=== PATIENT | male | born 1975 | race Caucasian/White ===

== ENCOUNTER 2022-11-09 07:50 | Outpatient (OUT) | payer OTHER, SELFPAY ==
--- NOTE | 2022-11-09 | ECG_ITS ---
[facility] Test Date: 2022-11-09 Pat Name: Rehan Monet Department: Room: - Gender: Male Maintenance Director: : [id number] Requested By: [id number] Order Number: [id number] Reading MD: VALDO BEST Measurements Intervals [place] Rate: 69 P: 68 [place]: 180 QRS: 90 QRSD: 98 T: 38 QT: 414 QTc: 444 Interpretive Statements SINUS RHYTHM INCOMPLETE RIGHT BUNDLE BRANCH BLOCK [90+ ms QRS DURATION, TERMINAL R IN V1/V2, 40+ ms S IN I/aVL/V4/V5/V6] NONSPECIFIC T-WAVE ABNORMALITY No previous ECG available for comparison Electronically Signed On 11-10-2022 6:58:01 EDT by VALDO BEST
== END 2022-11-09 07:51 | disposition home or self-care (01) ==
LOC: CARD 07:52
PROVIDERS: PCP Family Medicine; Visit Provider Family Medicine
DX: R00.2 Palpitations (principal)
CPT/HCPCS: 93005

== ENCOUNTER 2022-11-17 07:39 | Outpatient (OUT) | payer OTHER, SELFPAY ==
[2022-11-17 08:28] LABS: Basophils Absolute Auto 0.1 10^3/uL (0.0-0.1); Basophils Percent Auto 0.8 % (0.2-2.0); Eosinophils Absolute Auto 0.1 10^3/uL (0.0-0.7); Hematocrit 42.3 % (42.0-54.0); Hemoglobin 14.4 g/dL (14.0-18.0); Immature Granulocytes Abs Auto 0.02 10^3/uL (0.00-0.03); Immature Granulocytes Pct Auto 0.3 % (0.0-0.5); Lymphocytes Absolute Auto 2.1 10^3/uL (1.2-3.8); Lymphocytes Percent Auto 34.8 % (20.5-60.0); Mean Corpuscular Hemoglobin 30.4 pg (25.9-34.0); Mean Corpuscular Volume 89.2 fL (80.0-94.0); Mean Platelet Volume 9.6 fL (9.5-13.5); Monocytes Absolute Auto 0.7 10^3/uL (0.3-0.8); Neutrophils Percent Auto 50.1 % (43.0-75.0); Platelet Count 298 10^3/uL (150-450); Red Blood Count 4.74 10^6/uL (4.70-6.10); Red Cell Distribution Width 12.5 % (11.0-15.0); White Blood Count 5.9 10^3/uL (4.0-11.0)
[2022-11-17 14:53] LABS: Alanine Aminotransferase 29 U/L (16-63); Albumin Globulin Ratio 1.1; Albumin Level 3.9 g/dL (3.4-5.0); Alkaline Phosphatase 56 U/L (46-116); Anion Gap 12.2; Aspartate Amino Transferase 17 U/L (15-37); BUN Creatinine Ratio 18.3; Bilirubin Total 0.5 mg/dL (0.2-1.0); Calcium 9.2 mg/dL (8.5-10.1); Carbon Dioxide 30.3 mmol/L (21.0-32.0); Chloride 103 mmol/L (98-107); Chol HDL Ratio 4.1; Cholesterol 287 mg/dL (<=200); Estimated GFR (African America >60 (>=60); Estimated GFR (Non-African Ame >60 (>=60); Globulin 3.6 g/dL; Glucose 96 mg/dL (74-106); HDL Cholesterol 70 mg/dL (40-60); Potassium 4.5 mmol/L (3.5-5.1); Sodium 141 mmol/L (136-145); Total Protein 7.5 g/dL (6.4-8.2); Triglycerides 127 mg/dL (<=150); VLDL CHOLESTEROL 25.4 mg/dL
== END 2022-11-17 07:40 | disposition home or self-care (01) ==
LOC: LAB 07:40
PROVIDERS: PCP Family Medicine; Visit Provider Family Medicine
DX: R00.2 Palpitations (principal)
CPT/HCPCS: 36415; 80053; 80061; 84443; 85025

== ENCOUNTER 2022-12-08 15:43 | Outpatient (OUT) | payer OTHER, SELFPAY ==
[2022-12-08 16:16] LABS: Erythrocyte Sedimentation Rate 6 mm/hr (<=15)
[2022-12-08 16:38] LABS: Uric Acid 7.6 mg/dL (3.5-7.2)
[2022-12-08 16:39] LABS: C Reactive Protein <0.2 mg/dL (<=1.0)
== END 2022-12-08 15:44 | disposition home or self-care (01) ==
PROVIDERS: PCP Family Medicine; Visit Provider Family Medicine
DX: M79.673 Pain in unspecified foot (principal)
CPT/HCPCS: 36415; 84550; 85652; 86140

== ENCOUNTER 2023-11-22 21:20 | Emergency (ER) | payer OTHER, SELFPAY ==
[2023-11-22 21:31] VITALS: BP 150/107; PULSE 76; TEMP 36.7; O2SAT 98; BMI 27.3
--- NOTE | 2023-11-22 21:43 | ED.GENADUL1 ---
HPI HPI - General Adult General Chief complaint: Abdominal Pain Stated complaint: Gerry Pain Time Seen by Provider: 11/22/23 21:31 Source: patient and family Mode of arrival: walk-in History of Present Illness HPI narrative: left groin pain. states pain on and off over the past year. Describes increased pain as flare up. No urinary symptoms or abdominal pain Related Data Home Medications ?Medication ?Instructions ?Recorded ?Confirmed allopurinol 100 mg tablet 100 mg PO DAILY 11/22/23 11/22/23 colchicine 0.6 mg tablet 0.6 mg PO DAILY 11/22/23 11/22/23 Allergies Allergy/AdvReac Type Severity Reaction Status Date / Time No Known Drug Allergies Allergy Verified 11/22/23 21:30 Opioid HPI Opioid Management Most Recent Opioid Data: No Data to Display Review of Systems ROS Status of ROS 10 or more systems reviewed and unremarkable except as noted in history and below Exam Constitutional Vital Signs, click to edit/add: Last Vital Signs Temp 98.1 F 11/22/23 21:31 Pulse 76 11/22/23 21:31 Resp 15 11/22/23 21:31 BP 150/107 H 11/22/23 21:31 Pulse Ox 98 11/22/23 21:31 O2 Del Method Room Air 11/22/23 21:31 Common normals: no apparent distress, average body habitus, oriented x3, no limitations, healthy appearing, alert and well nourished [facility] Common normals: normocephalic and head/scalp atraumatic Respiratory Common normals: normal respiratory effort, no retractions and no use of accessory muscles Cardio Common normals: regular rate, regular rhythm, S1 normal heart sound and S2 normal heart sound GI Common normals: Normal to inspection, nondistended, normoactive bowel sounds present, soft to palpation and non-tender Other: left inguinal hernia noticed with exam and when he coughs. spont. reduces Extremity Common normals: normal to inspection and full ROM Neuro Common normals: oriented x3, CN's II-XII intact bilaterally, moves all extremities and no focal motor deficits Psych Appearance: grossly normal Course Vital Signs Vital signs: Vital Signs Temperature 98.1 F 11/22/23 21:31 Pulse Rate 76 11/22/23 21:31 Respiratory Rate 15 11/22/23 21:31 Blood Pressure 150/107 H 11/22/23 21:31 Pulse Oximetry 98 11/22/23 21:31 Oxygen Delivery Method Room Air 11/22/23 21:31 Temperature 98.1 F 11/22/23 21:31 Pulse Rate 76 11/22/23 21:31 Respiratory Rate 15 11/22/23 21:31 Blood Pressure 150/107 H 11/22/23 21:31 Pulse Oximetry 98 11/22/23 21:31 Oxygen Delivery Method Room Air 11/22/23 21:31 Medical Decision Making MDM Narrative Medical decision making narrative: patient presents with left groin pain on and off over the past year. Exam findings of likely left inguinal hernia. Patient informed of the working diagnosis and discharged home to follow up with gen. surgery Discharge Plan Discharge Stand Alone Forms: Work/School Release, Portal Instructions Chief Complaint: Abdominal Pain Clinical Impression: Indirect left inguinal hernia Patient Disposition: Home, Self-Care Prescriptions / Home Meds: No Action allopurinol 100 mg tablet 100 mg PO DAILY colchicine 0.6 mg tablet 0.6 mg PO DAILY Print Language: Pashto Instructions: Inguinal Hernia (ED) Additional Instructions: follow up with General Surgeon Dr Chawla Referrals: ALON HEAD [Primary Care Provider] - 1 week
== END 2023-11-22 22:08 | disposition home or self-care (01) ==
PROVIDERS: Emergency Provider Internal Medicine; PCP Family Medicine
DX: K40.90 Unilateral inguinal hernia, without obstruction or gangrene, not specified as recurrent (principal)
CPT/HCPCS: 99283

== ENCOUNTER 2024-05-08 14:54 | Outpatient (OUT) | payer OTHER, SELFPAY ==
--- OUTSIDE RECORDS SUMMARY | 2024-05-08 15:20 | XMS_ITS | CCD ---
Author Organization [facility] CliniSyma Care Team Providers Care Director Case Name Role Phone ADILENE, DR CHI Attending Unavailable GIRVIN, DR CHI Consulting Unavailable GIRVIN, DR CHI Primary Care Unavailable GIRVIN, DR CHI Admitting Unavailable KlipperAlno Consulting Unavailable GIRVIN, DR CHI Primary Care Unavailable REINECK, DR NADIA Parada Attending Unavailabl e REINECK, DR NADIA Parada Consulting Unavailabl e REINECK, DR NADIA Parada Admitting Unavailabl e ZIEBER, DR ORNN Crooks Consulting Unavailable GIRVIN, DR CHI Consulting Unavailable GIRVIN, DR CHI Primary Care Unavailable GIRVIN, DR CHI Admitting Unavailable GIRVIN, DR CHI Attending Unavailable Glatz, Tiago Consulting Unavailable REQUEST, DR THACKER LISTED Admitting Unavaila ble GIRVIN, DR CHI Primary Care Unavailable REQUEST, DR THACKER LISTED Attending Unavaila ble REQUEST, DR THACKER LISTED Consulting Unavaila ble REQUEST, DR THACKER LISTED Admitting Unavaila ble GIRVIN, DR CHI Primary Care Unavailable REQUEST, DR THACKER LISTED Attending Unavaila ble REQUEST, DR THACKER LISTED Consulting Unavaila ble DO Alon Head Primary Care Provider [phone] MD Alon Bellamy Attending Provider [phone] Alon Head Unavailable Alon Bellamy Unavailable DO Alon Head Primary Care Provider DO Alon Head Attending Provider Alon Head Primary Care Unavailable Alon Bellamy Admitting Unavailable Alon Bellamy Attending Unavailable Alon Head Attending Unavailable Adilene, Alon Admitting Unavailable Adilene, Alon Primary Care Unavailable Kirby Aldrich DO Primary Care Provider VALDEMAR DUMONT Attending Unavailable Kirby Aldrich DO Primary Care Provider KIRBY ALDRICH Primary Care Unavailable LISETTE FRAZIER Attending Unavailable ESTEPHANIA KIRBY E Primary Care Unavailable LEONARD, SOHAM Attending Unavailable LEONARD, PARK-BHARATHI Referring Unavailable BALL, KIRBY E Primary Care Unavailable ESTEPHANIA, KIRBY E Primary Care Unavailable LISA MENDOZA Attending Unavailable LEONARD, PARKMaynorBHARATHI Admitting Unavailable LEONARD, SOHAM Attending Unavailable LEONARD, PARK-BHARATHI Referring Unavailable BALL, KIRBY E Primary Care Unavailable UYAKOLISETTE GRAY Attending Unavailable BALL, KIRBY E Primary Care Unavailable LEONARD, PARK-BHARATHI Referring Unavailable BALL, KIRBY E Primary Care Unavailable BALL, KIRBY E Primary Care Unavailable LEONARD, SOHAM Attending Unavailable BALL, KIRBY E Primary Care Unavailable Allergies Allergy Classification Reported Allergen(s) Allergy Type Date of Onset Reaction(s) Facility (8 sources) Allopurinol; Translations: [ALLOPURINOL] Drug Allergy 12-21-2023 [facility] Work Phone: Medications Current Medications Medication Drug Class(es) Dates Sig (Normalized) Sig (Original) acetaminophen 325 mg / HYDROcodone bitartrate 5 mg oral tablet (1 source) Opioid Agonist Start: 12-05-2023 End: 12-08-2023 take 1 tablet by mouth every six hours as needed for pain HYDROcodone-acetam inophen (NORCO) 5-325 mg per tablet Indications: Left inguinal hernia Take 1 tablet by mouth every 6 hours as needed for pain for up to 3 days. 12 tablet 12/05/2023 12/08/2023 Active allopurinol 100 mg oral tablet (12 sources) Xanthine Oxidase Inhibitor Start: 11-25-2023 End: 12-09-2023 take 2 tablets by mouth once daily allopurinol (ZYLOPRIM) 100 mg tablet Take 2 tablets by mouth once daily for 14 days. 28 tablet 11/25/2023 12/09/2023 Active Start: 11-25-2023 End: 01-24-2024 take 1 tablet by mouth once daily allopurinol (ZYLOPRIM) 300 mg tablet Take 1 tablet by mouth once daily. 60 tablet 11/25/2023 12/21/2023 Discontinued Start: 10-24-2023 End: 11-25-2023 take 1 tablet by mouth once daily allopurinol (ZYLOPRIM) 100 mg tablet Take 1 tablet by mouth once daily. 60 tablet 11/24/2023 11/25/2023 Discontinued azithromycin 250 mg oral tablet (7 sources) Macrolide Antimicrobial Start: 01-13-2022 Azithromycin 250 MG 2 tablets on day 1 Orally then take 1 tablet daily on days 2-5 for 5 days Dec, Active colchicine 0.6 mg oral capsule (16 sources) Start: 04-02-2024 take 1 tablet by mouth once daily Colchicine 0.6 mg tablet Active 0.6 MG PO Daily April 02, 2024 12:00am Start: 10-24-2023 End: 07-23-2024 take 1 capsule by mouth once daily colchicine 0.6 mg capsule Indications: Chronic gout of multiple sites, unspecified cause Take 1 capsule by mouth once daily. 90 capsule 04/24/2024 07/23/2024 Active enteric contrast (will be provided with radiology test) (1 source) Start: 12-29-2023 End: 12-30-2023 enteric contrast (will be provided with radiology test) For CT PELVIS WO IVCON order Administer, As Directed One Time Only, via Oral, Rectal, both Oral and Rectal, Enteric Tube, Stoma or Indwelling Catheter, Enteric Contrast as designated per enteric contrast guidelines 1 Each 12/29/2023 12/30/2023 Active febuxostat 40 mg oral tablet (9 sources) Xanthine Oxidase Inhibitor Start: 12-21-2023 End: 06-23-2024 take 1 tablet by mouth once daily febuxostat (ULORIC) 40 mg tab Take 1 tablet by mouth once daily. 30 tablet 1 04/24/2024 06/23/2024 Active methylPREDNISolone 4 mg oral tablet (9 sources) Corticosteroid Start: 12-08-2022 methylPREDNISolone 4 MG as directed Orally with food for 6 days Nov, Active Start: 09-25-2019 methylPREDNISo lone 4 MG as directed Orally with food for 6 days Aug, Active oseltamivir 75 mg oral capsule (5 sources) Neuraminidase Inhibitor Start: 03-17-2022 take 1 capsule by mouth every twenty-four hours Tamiflu 75 MG 1 capsule Orally qd for 10 days Feb, Active terbinafine 250 mg oral tablet (2 sources) Allylamine Antifungal Start: 04-02-2024 take 1 tablet by mouth once daily Terbinafine Hcl 250 mg tablet Active 250 MG PO Daily April 02, 2024 12:00am Completed/Discontinued Medications Medication Drug Class(es) Dates Sig (Normalized) Sig (Original) aspirin 81 mg delayed release oral tablet (4 sources) Platelet Aggregation Inhibitor, Nonsteroidal Anti-inflammatory Drug Start: 01-19-2019 End: 04-02-2024 take 1 tablet by mouth once daily Aspirin 81 mg Tablet,Delayed Release (Dr/Ec) Discontinued 81 MG PO Daily January 18, 2019 11:00pm April 02, 2024 2:12pm benzonatate 100 mg oral capsule (3 sources) Non-narcotic Antitussive Start: 03-23-2021 take 1 capsule by mouth three times daily as needed Tessalon Perles 100 MG 1 capsule as needed Orally Three times a day for 10 day(s) Feb, Not-Taking cetirizine hydrochloride 10 mg oral tablet (3 sources) Histamine-1 Receptor Antagonist Start: 08-28-2019 take 1 tablet by mouth once daily ZyrTEC Allergy 10 MG 1 tablet Orally Once a day Aug, Not-Taking predniSONE 5 mg oral tablet (7 sources) Start: 12-21-2023 End: 01-02-2024 take 4 tablets by mouth once daily, then take 3 tablets by mouth once daily, then take 2 tablets by mouth once daily, then take 1 tablet by mouth once daily predniSONE (DELTASONE) 5 mg tablet Take 4 tablets by mouth once daily for 3 days, THEN 3 tablets once daily for 3 days, THEN 2 tablets once daily for 3 days, THEN 1 tablet once daily for 3 days. 30 tablet 12/21/2023 01/02/2024 Start: 11-24-2023 End: 12-06-2023 take 4 tablets by mouth once daily, then take 3 tablets by mouth once daily, then take 2 tablets by mouth once daily, then take 1 tablet by mouth once daily predniSONE (DELTASONE) 5 mg tablet Take 4 tablets by mouth once daily for 3 days, THEN 3 tablets once daily for 3 days, THEN 2 tablets once daily for 3 days, THEN 1 tablet once daily for 3 days. 30 tablet 11/24/2023 12/06/2023 Active Start: 10-14-2023 End: 04-02-2024 take 1 tablet by mouth once daily at mealtime Prednisone 20 mg tablet Discontinued 0 PO Daily 18 October 13, 2023 11:00pm April 02, 2024 2:32pm 20 MG 3 a day x3 days, then take 2 a day x3 days and then 1 a day x3 days with food or milk. orally daily; triamcinolone acetonide 40 mg/ml injectable suspension (20 sources) Corticosteroid Start: 08-30-2022 Kenalog-40 Aug, 60 cc Start: 10-13-2015 KENALOG - 10 m g Sep, 1.5 cc Start: 08-05-2013 KENALOG - 10 m g July, 40 mg Problems Active Problems Problem Classification Problem Date Documented Da te Episodic/Chronic Abdominal hernia (2 sources) Left inguinal hernia ; Translations: [Unilateral inguinal hernia, without obstruction or gangrene, not specified as recurrent] Onset: 12-05-2023 11-23-2023 Episodic Abdominal pain (11 sources) Lower abdominal pain, unspecified; Translations: [Left inguinal pain] Onset: 04-06-2021 Episodic Comment on above: left sided pain Cardiac dysrhythmias (2 sources) Palpitations Episodic Coronary atherosclerosis and other heart disease (17 sources) Angina pectoris; Translations: [Angina pectoris, unspecified] Chronic Disorders of lipid metabolism (8 sources) Hyperlipidemia; Translations: [Hyperlipidemia, unspecified] Chronic Gout and other crystal arthropathies (20 sources) Gout; Translations: [Gout, unspecified] Onset: 10-21-2023 Chronic Lymphadenitis (1 source) Localized enlarged lymph nodes; Translations: [Localized enlarged lymph nodes] Onset: 04-01-2022 Episodic Mycoses (4 sources) Onychomycosis; Translations: [Tinea unguium] 04-02-2024 Episodic Nonspecific chest pain (4 sources) Chest pain at rest; Translations: [Chest pain, unspecified] 01-18-2019 Episodic Comment on above: Problem List clean-u p per request of Phys. EHR Cmte Other aftercare (1 source) Surgical follow-up; Translations: [Encounter for follow-up examination after completed treatment for conditions other than malignant neoplasm] 12-29-2023 Episodic Other connective tissue disease (1 source) Pain in left foot Episodic Other connective tissue disease (1 source) Pain in unspecified foot Episodic Other connective tissue disease (1 source) Pain in left toe(s); Translations: [Pain of toe of left foot] Onset: 10-21-2023 Episodic Other ear and sense organ disorders (4 sources) Otalgia, left ear; Translations: [OTALGIA LEFT EAR] Onset: 12-04-2020 Episodic Other lower respiratory disease (4 sources) Dyspnea; Translations: [Shortness of breath] 01-18-2019 Episodic Comment on above: Problem List clean-u p per request of Phys. EHR Cmte Other nutritional; endocrine; and metabolic disorders (1 source) Abnormal weight loss Episodic Other upper respiratory disease (20 sources) Allergic rhinitis; Translations: [Allergic rhinitis, unspecified] Chronic Other upper respiratory disease (1 source) Other allergic rhinitis Onset: 08-18-2021 Resolved: 08-18-2021 Chronic Other upper respiratory disease (1 source) Allergic rhinitis, unspecified Chronic Residual codes; unclassified (15 sources) Obstructive sleep apnea syndrome; Translations: [Obstructive sleep apnea (adult) (pediatric)] Chronic Residual codes; unclassified (1 source) Obstructive sleep apnea (adult) (pediatric) Onset: 08-18-2021 Resolved: 08-18-2021 Chronic Residual codes; unclassified (3 sources) Sleep apnea, unspecified; Translations: [Unspecified sleep apnea] Chronic Residual codes; unclassified (16 sources) Sleep apnea; Translations: [Sleep apnea, unspecified] Onset: 10-21-2023 10-21-2023 Chronic Residual codes; unclassified (1 source) Pain; Translations: [Pain, unspecified] 04-17-2020 Episodic Residual codes; unclassified (1 source) Postoperative state; Translations: [Other specified postprocedural states] 12-22-2023 Episodic Spondylosis; intervertebral disc disorders; other back problems (17 sources) Spondylosis without myelopathy; Translations: [Spondylosis without myelopathy or radiculopathy, site unspecified] Chronic Syncope (4 sources) Syncope and collapse; Translations: [Syncope and collapse] 01-19-2019 Episodic Comment on above: Problem List clean-u p per request of Phys. EHR Cmte Unclassified (1 source) G47.33 - Obstructive sleep apnea (adult) (pediatric); Translations: [G47.33 - Obstructive sleep apnea (adult) (pediatric)] Onset: 08-18-2021 Past or Other Problems Problem Classification Problem Date Documented Date Episodic/Chronic E Codes: Adverse effects of medical drugs (7 sources) Allopurinol adverse reaction; Translations: [Adverse effect of drugs affecting uric acid metabolism, initial encounter] Onset: 12-21-2023 12-21-2023 Episodic Headache; including migraine (4 sources) Other headache syndrome; Translations: [OTHER HEADACHE SYNDROME] Onset: 12-23-2020 Episodic Other connective tissue disease (13 sources) Pain of toe of left foot; Translations: [Pain in left toe(s)] Onset: 10-21-2023 10-21-2023 Episodic Other lower respiratory disease (1 source) Snoring Onset: 08-18-2021 Resolved: 08-18-2021 Episodic Other non-traumatic joint disorders (14 sources) Acromioclavicular joint pain; Translations: [Pain in unspecified shoulder] Onset: 05-12-2010 05-12-2010 Episodic Other non-traumatic joint disorders (14 sources) Instability of left shoulder joint; Translations: [Other instability, left shoulder] Onset: 04-17-2020 04-17-2020 Episodic Other nutritional; endocrine; and metabolic disorders (1 source) Body mass index (BMI) 26.0-26.9, adult Onset: 08-18-2021 Resolved: 08-18-2021 Episodic Results Test Name Value Interpretation Reference Range Facility [facility] 12-29-2023 [facility] Office Visit (GENSAV ) REHAN MONET ([id number]) 1975 M Date Time Provider Department 12/29/23 2:20 PM SOHAM LEONARD GENSAV During your visit today, we recorded the following information about you: Soham Leonard DO 12/29/2023 2:57 PM Signed SERVICE DATE: 12/29/2023 SERVICE TIME: 2:30 PM SERVICE: General Surgery SUBJECTIVES: Here for repeat exam. No bulge sensation. Still with achy tenderness in the left groin as before the surgical repair. At times he is doing well without pain. But past Tuesday after a short car drive, he developed sharp pain in the left groin and lasts 2-3 days. Today he is doing well, min discomfort. OBJECTIVES: There were no vitals taken for this visit. , There is no height or weight on file to calculate BMI. GENERAL: Healthy, alert, no distress, cooperative GENITALIA MALE: well healed scars from surg; no palpable recurrent inguinal hernia in the left. The sensitive examination was discussed with the Patient or Patient's Authorized Duct Layer. As applicable, any other physician, advance practice provider, medical student, or other health professional student that will be observing or involved in the sensitive examination for educational or training purposes was discussed with the Patient or Authorized Duct Layer. The Patient or Authorized Duct Layer has agreed to proceed with the sensitive examination. (Sensitive examination includes inspection and/or palpation of the breasts, pelvis, prostate and anorectal regions) Assessment ASSESSMENT: S/p lap LIH repair with mesh POD#24 Persistent pain - postop vs neuralgia; history of left orchiectomy ? Scarring No signs of recurrence or persistence of LIH PLAN: Trial of topical Voltaren cream CT pelvis if continues to have recurrent symptoms in [address] is neg, then probably neuralgia - nerve block vs open exploration and neurectomy may be beneficial. SIGNATURE: Park Leonard DO PATIENT NAME: Rehan Monet DATE: December 29, 2023 TIME: 2:51 PM PAGER: Referring Provider: SOHAM LEONARD [[id number]] Allergies As of Date: 12/29/2023 Noted Allergy Reaction ALLOPURINOL 12/21/2023 4 - Hives Date Reviewed: 12/29/2023 Reviewed by: Chelita Frost OCCA - Fully Assessed Reason for Visit: Follow Up [171] Primary Visit Diagnosis:Left groin pain [R10.32] Other Visit Diagnosis:Postop check [Z09] Order(s):CT PELVIS WO IVCON [[id number]] Order #: [id number] FUTURE enteric contrast (will be provided with radiology test)For CT PELVIS WO IVCON order Administer, As Directed One Time Only, via Oral, Rectal, both Oral and Rectal, Enteric Tube, Stoma or Indwelling Catheter, Enteric Contrast as designated per enteric contrast guidelinesDisp: 1 EachRfl: 0 Prescriptions as of 12/29/2023 - enteric contrast (will be provided with radiology test) For CT PELVIS WO IVCON order Administer, As Directed One Time Only, via Oral, Rectal, both Oral and Rectal, Enteric Tube, Stoma or Indwelling Catheter, Enteric Contrast as designated per enteric contrast guidelines - febuxostat (ULORIC) 40 mg tab Take 1 tablet by mouth once daily. - predniSONE (DELTASONE) 5 mg tablet Take 4 tablets by mouth once daily for 3 days, THEN 3 tablets once daily for 3 days, THEN 2 tablets once daily for 3 days, THEN 1 tablet once daily for 3 days. - colchicine 0.6 mg capsule Take 1 capsule by mouth once daily. Problem List As Of Date 12/29/2023 Noted Resolved AC joint pain [M25.519] 05/12/2010 Instability of left shoulder joint [M25.312] 04/17/2020 Chronic gout involving toe without tophus [M1A.*10/21/2023 Sleep apnea [G47.30] 10/21/2023 Gout [M10.9] 10/21/2023 Pain of toe of left foot [M79.675] 10/21/2023 Allopurinol adverse reaction, initial encounter*12/21/2023 Prescriptions ordered this encounter Disp Refills Start End ENTERIC CONTRAST (RADIOLOGY PROCEDUR* 1 Ea* 0 12/29/2023 12/30/2023 Class: In Office Sig: For CT PELVIS WO IVCON order Administer, As Directed One Time Only, via Oral, Rectal, both Oral and Rectal, Enteric Tube, Stoma or Indwelling Catheter, Enteric Contrast as designated per enteric contrast guidelines Disposition: Return if symptoms worsen or fail to improve. Follow-up and Disposition History for Encounter Date Provider Department Center 12/29/2023 [id number] LEONARD Encounter Status:Closed by PARK LEONARD on 12/29/23 [facility] CNOVon 12-22-2023 JARED Office Visit (BRENNAN ) REHAN MONET ([id number]) 1975 M Date Time Provider Department 12/22/23 8:00 AM LISA MENDOZA During your visit today, we recorded the following information about you: Lisa Mendoza PA-C 12/22/2023 8:17 AM Signed SERVICE DATE: 12/22/2023 SERVICE TIME: 8:09 AM SERVICE: General Surgery SUBJECTIVES: Patient here for f/u after laparoscopic LIH repair. Patient has no complaints. OBJECTIVES: There were no vitals taken for this visit. , There is no height or weight on file to calculate BMI. GENERAL: Healthy, alert, no distress, cooperative, Smiling SKIN: Skin color, texture, turgor normal. No rashes or lesions. HEAD/SINUSES: No significant findings ABDOMEN: Abdomen soft, non-tender, No recurrence LIH upon standing and coughing. WOUND: Clean, dry and intact The sensitive examination was discussed with the Patient or Patient's Authorized Duct Layer. As applicable, any other physician, advance practice provider, medical student, or other health professional student that will be observing or involved in the sensitive examination for educational or training purposes was discussed with the Patient or Authorized Duct Layer. The Patient or Authorized Duct Layer has agreed to proceed with the sensitive examination. (Sensitive examination includes inspection and/or palpation of the breasts, pelvis, prostate and anorectal regions) Kathleen Buchanan LPN, stoneworker Assessment ASSESSMENT: POD 17 s/p laparoscopic LIH repair PLAN: Discussed lifting restrictions No submerging until 4 post op RTO prn SIGNATURE: Lisa Mendoza PA-C PATIENT NAME: Rehan Monet DATE: December 22, 2023 TIME: 8:09 AM PAGER: Allergies As of Date: 12/22/2023 Noted Allergy Reaction ALLOPURINOL 12/21/2023 4 - Hives Date Reviewed: 12/22/2023 Reviewed by: Kathleen Moss LPN - Fully Assessed Reason for Visit: Post Op Follow Up [3947] Cmt: POD 17 left inguinal hernia Primary Visit Diagnosis:Post-operat katherine state [Z98.890] Prescriptions as of 12/22/2023 - febuxostat (ULORIC) 40 mg tab Take 1 tablet by mouth once daily. - predniSONE (DELTASONE) 5 mg tablet Take 4 tablets by mouth once daily for 3 days, THEN 3 tablets once daily for 3 days, THEN 2 tablets once daily for 3 days, THEN 1 tablet once daily for 3 days. - colchicine 0.6 mg capsule Take 1 capsule by mouth once daily. 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 Messenger) REHAN MONET ([id number]) 1975 M Date Time Provider Department 12/07/23 ARETHA DONATO During your visit today, we recorded the following information about you: Aretha Donato RN 12/07/2023 8:53 AM Signed Called patient and received VM as identified by no otr owner operator. Informed if any questions or concerns to please call the [facility] If no questions or concerns then we will see at scheduled post-op appt. Informed if any questions or concerns arise before then to please call. Office number left to contact. Allergies As of Date: 12/07/2023 (No Known Allergies) Date Reviewed: 12/05/2023 Reviewed by: Giuseppe King RN - Fully Assessed Prescriptions as of 12/07/2023 - HYDROcodone-acetamino phen (NORCO) 5-325 mg per tablet Take 1 tablet by mouth every 6 hours as needed for pain for up to 3 days. - allopurinol (ZYLOPRIM) 100 mg tablet Take 2 tablets by mouth once daily for 14 days. - allopurinol (ZYLOPRIM) 300 mg tablet Take 1 tablet by mouth once daily. - colchicine 0.6 mg capsule Take 1 capsule by mouth once daily. 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.*10/21/2023 Sleep apnea [G47.30] 10/21/2023 Gout [M10.9] 10/21/2023 Pain of toe of left foot [M79.675] 10/21/2023 Encounter Status:Closed by ARETHA DONATO on 12/07/23 [facility] ANES POSTPROC EVALon 024 ANES POSTPROC EVAL HNO ID: [id number] Author: JOE MCCORMACK MD Service: Anesthesiology Author Type: Anesthesiologist Type: Anesthesia Postprocedure Evaluation Filed: 12/05/2023 09:28 Note Text: POST ANESTHESIA EVALUATION NOTE : 1975 Procedure Summary Date: 12/05/23 Room / Location: [address] Anesthesia Start: 730 Anesthesia Stop: 850 Procedure: LAPAROSCOPIC HERNIORRHAPHY, INGUINAL INITIAL (Left: Groin) Diagnosis: Left inguinal hernia (Left inguinal hernia [K40.90]) Surgeons: Soham Leonard DO Responsible Provider: Joe Mccormack MD Anesthesia Type: general ASA Status: 3 Anesthesia Type: general Airway Type: ETT Last Vitals Vitals Value Taken Time BP 148/67 12/05/23 0920 Temp 36.4 ?C (97.6 ?F) 12/05/23 0851 HR SpO2 82 12/05/23 0851 Resp 16 12/05/23 0915 SpO2 99 % 12/05/23 0927 Vitals shown include unfiled device data. Post Anesthesia Patient Status Patient Evaluation: PACU. PACU/ICU Patient Condition: stable. Anticipated Disposition: phase 2 then home. Neurological Status: aware and responsive. Pulmonary Status: breathing comfortably on room air Airway Control: returned to baseline unsupported. Cardiovascular Status: stable. Pain Management: clinically adequate - multimodal analgesia pain management approach Postoperative Hydration: acceptable. Intraoperative Events: no significant anesthesia events Post Operative Nausea/Vomiting Status: no significant post operative nausea or vomiting Recommendation: continue current plan of care. Anesthesia Observations No Documentation SIGNATURE: Joe Mccormack MD PATIENT NAME: Rehan Monet DATE: December 05, 2023 TIME: 9:28 AM CSN: [id number] Normal [facility] ANES PRE-OPon 12-05-2023 ANES PRE-OP HNO ID: [id number] Author: JOE MCCORMACK MD Service: Anesthesiology Author Type: Anesthesiologist Type: Anesthesia Preprocedure Evaluation Filed: 12/05/2023 07:22 Note Text: ANESTHESIOLOGY DAY OF SURGERY NOTE : 1975 Procedure Information Date/Time: 12/05/23729 Procedure: LAPAROSCOPIC HERNIORRHAPHY, INGUINAL INITIAL (Left: Groin) Location: [place] [address] / [facility] Surgeons: Soham Leonard DO Estimated body mass index is 27.66 kg/m? as calculated from the following: Height as of 11/25/23: 177.8 cm (5' 10 ). Weight as of 11/25/23: 87.5 kg (192 lb 12.7 oz). Most recent hematocrit and potassium results: Hematocrit 42.2 11/23/2023 Potassium 4.3 11/23/2023 IVETH not on CPAP Relevant Problems ANESTHESIA (+) Sleep apnea PULMONARY (+) Sleep apnea I - PHYSICAL EVALUATION AIRWAY Patient intubated: No. Tracheostomy tube not present Mallampati: II. TM distance: >3 FB. Neck ROM: full ROM without neurological symptoms. Mouth opening: adequate. Short neck: no. Thick neck: no DENTAL Dental findings: teeth intact. Additional exam findings: no II - ANESTHESIA PLAN ASA Score: 3 Anesthetic Plan: general Airway type: LMA The patient is not a current smoker. NPO Status: adequate Beta Jim Monitoring Plan Monitoring plan: standard ASA. Post Procedure Analgesic Plan Postoperative analgesic plan: multimodal analgesia and parenteral or oral opioids. Informed Consent Anesthetic risks, benefits, alternatives, personnel and consent discussed: yes. Patient / Responsible Libertarian agrees to proceed: yes Patient / Surrogate agrees to blood products: Yes Vitals Value Taken Time BP 149/94 12/05/23711 Pulse 63 12/05/23711 Resp 18 12/05/23711 Temp 36.6 ?C (97.8 ?F) 12/05/23711 SpO2 98 % 12/05/23711 Facility-Administered Medications as of 12/05/2023 Medication Dose Route Frequency lidocaine (PF) 10 mg/mL (1 %) 1-2 mg injection (XYLOCAINE) 0.1-0.2 mL INTRADERMAL PRN lactated ringers iv infusion 5-30 mL/hr INTRAVENOUS CONTINUOUS NaCl 0.9% iv flush bag 20 mL INTRAVENOUS PRN ceFAZolin 2 g in dextrose (iso-osmotic) 50 mL (ANCEF,KEFZOL) 2 g INTRAVENOUS Pre-Op Once Outpatient Medications as of 12/05/2023 Medication Sig colchicine 0.6 mg capsule Take 1 capsule by mouth once daily. allopurinol (ZYLOPRIM) 100 mg tablet Take 2 tablets by mouth once daily for 14 days. allopurinol (ZYLOPRIM) 300 mg tablet Take 1 tablet by mouth once daily. I have interviewed and examined the patient. I have reviewed the medical record and/or the pre-anesthesia evaluation, pertinent labs, and test results. This contains updated information obtained within 48 hours of Surgery/Procedure. SIGNATURE: Joe Mccormack MD PATIENT NAME: Rehan Monet DATE: December 05, 2023 TIME: 7:22 AM CSN: [id number] Normal [facility] BRIEF OP NOTon 12-05-2023 BRIEF OP NOT HNO ID: [id number] Author: SOHAM LEONARD DO Service: General Surgery Author Type: Physician Type: Brief Op Note Filed: 12/05/2023 08:34 Note Text: BRIEF OPERATIVE / PROCEDURE NOTE LOG ID: [id number] SURGERY/PROCEDURE DATE: 12/05/2023 INCISION/PROCEDURE START TIME: 0751 INCISION CLOSE/PROCEDURE END TIME: SURGEON(S)/PROCEDURAL IST(S) AND ENRICHMENT TEACHER(S): Surgeons and Role: * Soham Leonard DO - Primary Physician Shaft Mechanic: Lisa Mendoza PA-C SURGERY/PROCEDURE(S): Lap LIH repair with mesh ANESTHESIA: General FINDINGS: left inguinal hernia containing fat ESTIMATED BLOOD LOSS: minimal SPECIMENS: None COMPLICATIONS: None CLOSURE TECHNIQUE: Primary PRE-OP/PRE-PROCEDURE DIAGNOSIS: Left reducible inguinal hernia POST-OP/POST-PROCEDUR E DIAGNOSIS: Same as Preop Patient was accompanied to the next level of care by a licensed practitioner from the surgical team pending completion of this brief op note (or operative note) SIGNATURE: Park Leonard DO PATIENT NAME: Rehan Monet DATE: December 05, 2023 TIME: 8:34 AM Normal [facility] OPERATIVE NOon 12-05-2023 OPERATIVE NO HNO ID: [id number] Author: SOHAM LEONARD DO Service: General Surgery Author Type: Physician Type: Operative Report Filed: 12/05/2023 08:39 Note Text: [address], [facility] Phone: [phone] OPERATIVE REPORT NAME: Rehan Monet [facility] #: [id number] DATE: December 05, 2023 AGE: [age] year old SURGEON 1: Soham Leonard D.O. ENRICHMENT TEACHER 1: PARIS Cooper No qualified resident was available to perform the service. OPERATION: Laparoscopic Left inguinal hernia repair with mesh. ANESTHESIA: General anesthesia. PREOPERATIVE DIAGNOSIS: Left reducible inguinal hernia. POSTOPERATIVE DIAGNOSIS: Left reducible indirect inguinal hernia. OPERATIVE INDICATIONS: The patient is a 48 year oldmro-rvyz-rji male with history of left inguinal bulge, worse with movement, especially lifting heavy objects. Physical exam shows the patient has a reducible left inguinal hernia. Discussion was made with the patient regarding laparoscopic left inguinal hernia repair with mesh, possible open. Informed consent was obtained from the patient. The patient understood risks, benefits, and alternatives of the procedure, and agreed to the procedure described above. OPERATIVE FINDINGS: left inguinal hernia containing fat OPERATIVE PROCEDURE: The patient was brought to the operating room and placed in supine position. General anesthesia was provided by Anesthesia team. Savage catheter was inserted. The abdominal and bilateral groin area were prepped and draped in usual sterile fashion. A small right periumbilical incision was made. Further dissection was taken down through the anterior abdominal fascia. Fascia was opened and the retrorectal space was entered. In this space, a balloon dissector was inserted and the pneumo was created in the retrorectus space. Under direct visualization, two additional 5-mm ports were placed. They were placed in the lower midline abdomen. Preperitoneal space was then examined. The left inferior epigastric vessel was Identified. A small size inguinal hernia was found lateral to the inferior epigastric. This was consistent with indirect hernia. The hernia sac and cord lipoma was reduced with grasper and the spermatic cord was identified and preserved without any injury. We elected to repair the left inguinal hernia with ClubLocalile laparoscopic inguinal hernia mesh 13 x 9 cm size. It was inserted and fixated to the Vish's ligament on its medial edge with AbsorbaTack. It was also fixated to the left-sided abdominal wall using the Tacker. The hernia sac was pulled back and kept in place behind the hernia mesh. The repair was satisfactory, covering the potential space of the direct and indirect hernia space. Hemostasis was checked at this time, no signs of active bleeding. Pneumoperitoneum was evacuated. All the trocars were removed. Right periumbilical incision fascial layer was closed with #0 Vicryl suture. All the skin incisions were closed with 3-0 vicryl and 4-0 Monocryl. Sterile dressing was applied. The patient tolerated the procedure well and was transferred to recovery for postprocedural care. PA's task in this procedure: opening and closing of incision, retraction and exposure of the wound and camera operation. INCISION/PROCEDURE START TIME: 0751 INCISION CLOSE/PROCEDURE END TIME: 0835 ESTIMATED BLOOD LOSS: minimal DRAINS: none SPECIMENS: None. CONDITION: Stable. COMPLICATIONS: None apparent. Park Leonard DO December 05, 2023 8:37 AM Normal [facility] HISTORY PHYSICALon HISTORY PHYSICAL HNO ID: [id number] Author: XIMENA GONZALES APRN.EMPERATRIZ Service: ? Author Type: Nurse Practitioner Type: H&P Filed: 11/25/2023 08:00 Note Text: HISTORY AND PHYSICAL EXAMINATION SERVICE DATE: 11/25/2023 SERVICE TIME: 7:45 AM PRIMARY CARE PHYSICIAN: Kirby Aldrich DO REASON FOR VISIT: Rehan Monet is a 48 year old male who is scheduled for Left - LAPAROSCOPIC HERNIORRHAPHY, INGUINAL INITIAL at the request of Dr. Soham Leonard for consultation. My final recommendation will be communicated back to the requesting physician by way of shared medical record or letter. Assessment Patient has the following medical conditions which may affect nahed-operative course: Sleep apnea Assessment: Does not use CPAP Nichole Activity Status Index: METS: Do moderate work around the house, such as vacuuming, sweeping floors, or carrying in groceries (3.50 METs) Climb a flight of stairs or walk up a hill (5.50 METs) DASI Score: 9 Patient denies any chest pain or undue shortness of breath with the above physical activity. STOP-Bang Score: STOP-Bang Score: 0 [id number] Score: Age: <65 Sex: male CHF history: No Hypertension history: No Stroke/TIA/thromboemb olism history: No Vascular disease history: No Diabetes history: No [id number] Score: 0 ANESTHESIA FINDINGS: Intubation History: No history of difficult intubation Significant Anesthesia Considerations: none Airway History: No history of difficult airway I - PHYSICAL EVALUATION AIRWAY Patient intubated: No. Tracheostomy tube not present Mallampati: I. TM distance: >3 FB. Neck ROM: full ROM without neurological symptoms. Mouth opening: adequate. Short neck: no. Thick neck: no Lip Bite Test: II Microretrognathia/Deshaun ronagthia/Recessed Chin: No DENTAL Dental findings: teeth intact. II - ANESTHESIA PLAN Beta Jim Monitoring Plan Post Procedure Analgesic Plan Prepared for surgery: This patient is optimally prepared for surgery. CONSULTS: Patient does not require consults for optimization at this time. The Following Tests/Procedures Have Been Initiated: Labs not indicated per [facility] protocol, EKG not indicated per [facility] protocol Planned Anesthetic: Per anesthesia choice Subjective CHIEF COMPLAINT: Left inguinal hernia HPI: 48 year old year old presents to [facility] for evaluation. Patient has had left groin pain > 1 year. Found to have hernia. Has elected for surgical intervention. PAST MEDICAL HISTORY No date: Gout 11/23/2023: NEGATIVE HISTORY OF Comment: NO pn,tb,dm,ca, heart dis No date: Sleep apnea PAST SURGICAL HISTORY No date: FINGER SURGERY HX; Right Comment: Right Thumb No date: SHOULDER SURGERY HX; Left No date: TESTICLE SURGERY HX; Left No date: TOOTH EXTRACTION Comment: [place] Teeth FAMILY HISTORY Problem Relation Age of Onset Diabetes Father Gout Brother SOCIAL HISTORY: Social History Tobacco Use Smoking status: Never Smokeless tobacco: Never Prior to Admission medications as of 11/25/23 0750 Medication Sig Last Dose Taking allopurinol (ZYLOPRIM) 300 mg tablet Take 1 tablet by mouth once daily. Yes predniSONE (DELTASONE) 5 mg tablet Take 4 tablets by mouth once daily for 3 days, THEN 3 tablets once daily for 3 days, THEN 2 tablets once daily for 3 days, THEN 1 tablet once daily for 3 days. Taking Yes colchicine 0.6 mg capsule Take 1 capsule by mouth once daily. Taking Yes allopurinol (ZYLOPRIM) 100 mg tablet Take 2 tablets by mouth once daily for 14 days. No medication comments found. ALLERGIES No Known Allergies Covid Immunization Dates Overdue - Covid-19 Vaccine ( season) Overdue since 11/26/2022 07/23/2020 Imm Admin: COVID-19 original vaccine, age 12+ yr, monovalent (PFIZER-BIONTECH - PURPLE TOP) 07/02/2020 Imm Admin: COVID-19 original vaccine, age 12+ yr, monovalent (PFIZER-BIONTECH - PURPLE TOP) REVIEW OF SYSTEMS: PAIN ASSESSMENT: General: No weight loss, malaise or fevers. Neuro: No history of TIA's, stroke, [employer]ODUCT [employer]ETING EXEC[employer] tumor, impaired sensorium, hemiplegia, paraplegia or quadraplegia. No neurological symptoms or problems. Respiratory: No history of current cough or dyspnea, or pneumonia in the past 6 weeks. No history of respiratory/pulmonary symptoms or problems. +IVETH Cardiovascular: Negative for Recent IL, Angina, Chest Pain, PVD, DVT/PE GI: Negative for Nausea, Vomiting, Abdominal pain : Negative for dysuria, incontinence, hematuria, and hesitancy Endocrine: No history of diabetes. Has not taken steroids within the past 30 days. No history of endocrinological symptoms or problems. Hematology: No history of bleeding or clotting disorder. Pt is not taking anti-coagulation or platelet medications. No history of hematological symptoms or problems. Oncology: No history of CA metastasis, chemo within 30 days, or radiotherapy within 90 days. Has not lost 10% of body wt in 6 months. No history of oncological symptom (more content not included)... Normal [facility] CBC W Auto Differential pane l (Bld)on 11-23-2023 Basophils (Bld) [#/Vol] 0.05 10*3/uL Normal <0.11 [facility] Comment on above: Order Comment: Speci men Type: BLOOD SPECIMENOrdering Facility: [facility] Address: [address] [place] [address] Performed By: #### 5 7021-8 ####[facility] LABCLIA [id number] [place] [address] [place] Basophils/100 WBC (Bld) 0.7 % Normal [facility] Comment on above: Order Comment: Speci men Type: BLOOD SPECIMENOrdering Facility: [facility] Address: [address] [place] [address] Performed By: #### 5 7021-8 ####[facility] LABCLIA [id number] [place] [id number] [place] Differential cell count method Nom (Bld) Auto Normal [facility] Comment on above: Order Comment: Speci men Type: BLOOD SPECIMENOrdering Facility: [facility] Address: [address] [place] [address] Performed By: #### 5 7021-8 ####[facility] LABCLIA [id number] [place] [address] [place] Eosinophils (Bld) [#/Vol] 0.11 10*3/uL Normal <0.46 [facility] Comment on above: Order Comment: Speci men Type: BLOOD SPECIMENOrdering Facility: [facility] Address: [address] [place] [address] Performed By: #### 5 7021-8 ####[facility] LABIA [id number] [place] [id number] [place] Eosinophils/100 WBC (Bld) 1.6 % Normal [facility] Comment on above: Order Comment: Speci men Type: BLOOD SPECIMENOrdering Facility: [facility] Address: [address] [place] [address] Performed By: #### 5 7021-8 ####[facility] LABIA [id number] [place] [id number] [place] Erythrocyte distribution width (RBC) [Ratio] 12.4 % Normal 11.5-15.0 [facility] Comment on above: Order Comment: Speci men Type: BLOOD SPECIMENOrdering Facility: [facility] Address: [address] [place] [address] Performed By: #### 5 7021-8 ####[facility] LABIA [id number] [place] [id number] [place] Hematocrit (Bld) [Volume fraction] 42.2 % Normal 39.0-51.0 [facility] Comment on above: Order Comment: Speci men Type: BLOOD SPECIMENOrdering Facility: [facility] Address: [address] [place] [address] Performed By: #### 5 7021-8 ####[facility] [id number] [place] [phone] [place] Hemoglobin (Bld) [Mass/Vol] 14.9 g/dL Normal 13.0-17.0 [facility] Comment on above: Order Comment: Speci men Type: BLOOD SPECIMENOrdering Facility: [facility] Address: [address] [place] [address] Performed By: #### 5 7021-8 ####[facility] LABIA [id number] [place] [id number] [place] Immature granulocytes (Bld) [#/Vol] 0.04 10*3/uL Normal <0.10 [facility] Comment on above: Order Comment: Speci men Type: BLOOD SPECIMENOrdering Facility: [facility] Address: [address] [place] [address] Performed By: #### 5 7021-8 ####[facility] LABIA [id number] [place] [phone] [place] Immature granulocytes/100 WBC (Bld) 0.6 % Normal [facility] Comment on above: Order Comment: Speci men Type: BLOOD SPECIMENOrdering Facility: [facility] Address: [address] [place] [address] Performed By: #### 5 7021-8 ####[facility] LABCLIA [id number] [place] [address] [place] Lymphocytes (Bld) [#/Vol] 1.93 10*3/uL Normal 1.00-4.00 [facility] Comment on above: Order Comment: Speci men Type: BLOOD SPECIMENOrdering Facility: [facility] Address: [address] [place] [address] Performed By: #### 5 7021-8 ####[facility] LABCLIA [id number] [place] [phone] [place] Lymphocytes/100 WBC (Bld) 28.9 % Normal [facility] Comment on above: Order Comment: Speci men Type: BLOOD SPECIMENOrdering Facility: [facility] Address: [address] [place] [address] Performed By: #### 5 7021-8 ####[facility] LABCLIA [id number] [place] [id number] [place] MCH (RBC) [Entitic mass] 30.8 pg Normal 26.0-34.0 [facility] Comment on above: Order Comment: Speci men Type: BLOOD SPECIMENOrdering Facility: [facility] Address: [address] [place] [address] Performed By: #### 5 7021-8 ####[facility] LABCLIA [id number] [place] [address] [place] MCHC (RBC) [Mass/Vol] 35.3 g/dL Normal 30.5-36.0 [facility] Comment on above: Order Comment: Speci men Type: BLOOD SPECIMENOrdering Facility: [facility] Address: [address] [place] [address] Performed By: #### 5 7021-8 ####[facility] LABCLIA [id number] [place] [address] [place] MCV (RBC) [Entitic vol] 87.4 fL Normal 80.0-100.0 [facility] Comment on above: Order Comment: Speci men Type: BLOOD SPECIMENOrdering Facility: [facility] Address: [address] [place] [address] Performed By: #### 5 7021-8 ####[facility] LABIA [id number] [place] [address] [place] Monocytes (Bld) [#/Vol] 0.66 10*3/uL Normal <0.87 [facility] Comment on above: Order Comment: Speci men Type: BLOOD SPECIMENOrdering Facility: [facility] Address: [address] [place] [address] Performed By: #### 5 7021-8 ####[facility] LABIA [id number] [place] [id number] [place] Monocytes/100 WBC (Bld) 9.9 % Normal [facility] Comment on above: Order Comment: Speci men Type: BLOOD SPECIMENOrdering Facility: [facility] Address: [address] [place] [address] Performed By: #### 5 7021-8 ####[facility] LABIA [id number] [place] [address] [place] Neutrophils (Bld) [#/Vol] 3.89 10*3/uL Normal 1.45-7.50 [facility] Comment on above: Order Comment: Speci men Type: BLOOD SPECIMENOrdering Facility: [facility] Address: [address] [place] [address] Performed By: #### 5 7021-8 ####[facility] LABIA [id number] [place] [address] [place] Neutrophils/100 WBC (Bld) 58.3 % Normal [facility] Comment on above: Order Comment: Speci men Type: BLOOD SPECIMENOrdering Facility: [facility] Address: [address] [place] [address] Performed By: #### 5 7021-8 ####[facility] LABIA [id number] [place] [address] [place] Nucleated RBC (Bld) [#/Vol] 10*3/uL Normal <0.01 [facility] Comment on above: Order Comment: Speci men Type: BLOOD SPECIMENOrdering Facility: [facility] Address: [address] [place] [address] Performed By: #### 5 7021-8 ####[facility] LABIA [id number] [place] [id number] [place] Nucleated RBC/100 WBC (Bld) [Ratio] 0.0 /100 WBC Normal [facility] Comment on above: Order Comment: Speci men Type: BLOOD SPECIMENOrdering Facility: [facility] Address: [address] [place] [address] Performed By: #### 5 7021-8 ####[facility] LABIA [id number] [place] [address] [place] Platelet mean volume (Bld) [Entitic vol] 9.0 fL Normal 9.0-12.7 [facility] Comment on above: Order Comment: Speci men Type: BLOOD SPECIMENOrdering Facility: [facility] Address: [address] [place] [address] Performed By: #### 5 7021-8 ####[facility] LABIA [id number] [place] [address] [place] Platelets (Bld) [#/Vol] 258 10*3/uL Normal 150-400 [facility] Comment on above: Order Comment: Speci men Type: BLOOD SPECIMENOrdering Facility: [facility] Address: [address] [place] [address] Performed By: #### 5 7021-8 ####[facility] LABIA [id number] [place] [address] [place] RBC (Bld) [#/Vol] 4.83 10*6/uL Normal 4.20-6.00 [facility] Comment on above: Order Comment: Speci men Type: BLOOD SPECIMENOrdering Facility: [facility] Address: [address] [place] [address] Performed By: #### 5 7021-8 ####[facility] LABCLIA [id number] [address] WBC (Bld) [#/Vol] 6.68 10*3/uL Normal 3.70-11.00 [facility] Comment on above: Order Comment: Speci men Type: BLOOD SPECIMENOrdering Facility: [facility] Address: [address] [place] [address] Performed By: #### 5 7021-8 ####[facility] LABCLIA [id number] [address] CNOVon 11-23-2023 CNOV Office Visit (GENSAM ) REHAN MONET ([id number]) 1975 M Date Time Provider Department 11/23/23 10:20 AM SOHAM LEONARD GENSAJacqueline During your visit today, we recorded the following information about you: Pulse Blood pressure Weight Height 67/minute 135/83 85.7 kg 1.778 m Soham Leonard DO 11/23/2023 11:21 AM Signed SERVICE DATE: 11/23/2023 SERVICE TIME: 10:32 AM SERVICE: General Surgery REFERRAL PHYSICIAN: No referring provider defined for this encounter. Rehan Monet is here today at the request of No referring provider defined for this encounter. for my opinion regarding left inguinal hernia. My final recommendation will be communicated back to the requesting physician by way of shared medical record or letter. 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 Small non-tender reducible umbilical hernia PLAN: I have discussed with patient regarding lap LIH repair with mesh, possible open. Risks, benefits and alternatives were discussed. Risks including but not limited to bleeding, pain, infection, scar(s), chronic pain after surgery, repeat procedure, injuries to bladder, colon, small bowel, other intra-abd organs, mesh complication, possible recurrence of symptoms, prolong hospital/surgical stay, cardiopulmonary event, seizure, stroke, allergic reaction to administered medication and . Patient's questions were answered to his satisfaction. Patient understands and wishes to proceed with surgery. Will schedule surgery at his convenience. Travel and lifting weight limit restrictions also discussed. Patient is fully aware of these restrictions. Discussed umbilical hernia and its repair at the same time if patient wishes; he wishes to observe at this time due to no symptoms. HPI: 48 year old y/o male self referred for evaluation of left groin pain that has been present for about a year. Patient states he typically has a feeling of dull annoyance in regards to discomfort but over the last several days he has had sharp pain with activities. Patient denies any presence of a bulge. Denies any change in bowel habits. Surgical history remarkable for left testicle removed due to torsion at age 13. PAST MEDICAL HISTORY No date: Gout 11/23/2023: NEGATIVE HISTORY OF Comment: NO pn,tb,dm,ca, heart dis No date: Sleep apnea PAST SURGICAL HISTORY No date: FINGER SURGERY HX; Right Comment: Right Thumb No date: SHOULDER SURGERY HX; Left No date: TESTICLE SURGERY HX; Left No date: TOOTH EXTRACTION Comment: [place] Teeth MEDICATIONS: Current Outpatient Medications: colchicine 0.6 mg capsule, Take 1 capsule by mouth once daily., Disp: 90 capsule, Rfl: 0 allopurinol (ZYLOPRIM) 100 mg tablet, Take 1 tablet by mouth once daily., Disp: 30 tablet, Rfl: 0 ALLERGIES No Known Allergies FAMILY HISTORY Problem Relation Age of Onset Diabetes Father Gout Brother Social History Tobacco Use Smoking status: Never Smokeless tobacco: Never REVIEW OF SYSTEMS: GENERAL: No weight loss, malaise or fevers HEENT: Negative for frequent or significant headaches, No changes in hearing or vision, no nose bleeds or other nasal problems NECK: Negative for lumps, goiter, pain and significant neck swelling RESPIRATORY: Negative for cough, hemoptysis, wheezing, COPD, dyspnea or shortness of breath, + sleep apnea CARDIOVASCULAR: Negative for chest pain, leg swelling, hypertension, CHF or palpitations GI: No nausea, vomiting, or diarrhea : See HPI MUSCULOSKELETAL: + gout SKIN: Negative for lesions, rash, and itching PSYCH: Negative NEURO: No history of headaches, syncope, paralysis, seizures or tremors PHYSICAL EXAM: BP 135/83 Pulse 67 Ht 177.8 cm (5' 10 ) Wt 85.7 kg (188 lb 15 oz) BMI 27.11 kg/m? Body mass index is 27.11 kg/m?. GENERAL: Healthy, alert, no distress, cooperative SKIN: Skin color, texture, turgor normal. No rashes or lesions. HEAD/SINUSES: No significant findings NECK: Supple ABDOMEN: Soft, nontender and + small reducible non-tender umbilical hernia. EXTREMITIES: No ulcers NEURO: Grossly normal cognition, motor function GENITALIA MALE: + small mildly tender left inguinal hernia at the pubic tubercle, reducible; left testicle absent. Diagnostic tests reviewed for today's visit: No new labs SIGNATURE: Aretha Donato RN PATIENT NAME: Rehan Monet DATE: November 23, 2023 TIME: 10:32 AM DO Kody Stoll Daisy 11/24/2023 11:45 AM Signed Addended by: RM BEARDEN on: 11/24/2023 11:45 AM Modules accepted: Orders Allergies As of Date: 11/23/2023 (No Known Allergies) Date Reviewed: 11/23/2023 Reviewed by: Michaela Jin LPN - Fully Assessed Reason for Visit: Consult [502] Cmt: Patient here to discuss left inguinal hernia. P (more content not included)... Normal [facility] Amelie 11-23-2023 [facility] Telephone (DDQ) REHAN MONET ([id number]) 1975 M Date Time Provider Department 11/23/23 SOHAM LEONARD During your visit today, we recorded the following information about you: Rm Bearden 11/23/2023 11:36 AM Signed Rm Beardne 11/23/2023 3:26 PM Signed Tried calling patient, lmovm to return my call at [phone] option 5. Thank you. Rm Bearden 11/24/2023 11:48 AM Addendum Patient called back, surgery scheduled on 12/05/[address] [facility], pt req AM if poss Lap left inguinal hernia repair w mesh poss open - general 1 hr -no thinners -no diabetes Thank you. Allergies As of Date: 11/23/2023 (No Known Allergies) Date Reviewed: 11/23/2023 Reviewed by: Michaela Jin LPN - Fully Assessed Reason for Visit: Schedule Surgery [1330] Prescriptions as of 11/24/2023 - colchicine 0.6 mg capsule Take 1 capsule by mouth once daily. 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] 04/17/2020 Chronic gout involving toe without tophus [M1A.*10/21/2023 Sleep apnea [G47.30] 10/21/2023 Gout [M10.9] 10/21/2023 Pain of toe of left foot [M79.675] 10/21/2023 Encounter Status:Closed by RM BEARDEN on 11/23/23 Normal [facility] Comprehensive metabolic 2000 panelon 11-23-2023 Albumin [Mass/Vol] 4.3 g/dL Normal 3.9-4.9 [facility] Comment on above: Order Comment: Speci men Type: BLOOD SPECIMENOrdering Facility: [facility] Address: [address] [place] [address] Performed By: #### 2 4323-8, 3084-1 ####[facility] LABCLIA [id number] [place] [address] [place] ALP [Catalytic activity/Vol] 54 U/L Normal 38-113 [facility] Comment on above: Order Comment: Speci men Type: BLOOD SPECIMENOrdering Facility: [facility] Address: [address] [place] [address] Performed By: #### 2 4323-8, 308- ####[facility] LABCLIA [id number] [place] [address] [place] ALT [Catalytic activity/Vol] 24 U/L Normal 10-54 [facility] Comment on above: Order Comment: Speci men Type: BLOOD SPECIMENOrdering Facility: [facility] Address: [address] [place] [address] Performed By: #### 2 4323-8, 3083- ####[facility] LABCLIA [id number] [place] [id number] [place] Anion gap [Moles/Vol] 4 mmol/L Low 8-15 [facility] Comment on above: Order Comment: Speci men Type: BLOOD SPECIMENOrdering Facility: [facility] Address: [address] [place] [address] Performed By: #### 2 4323-8, 3083- ####[facility] LABCLIA [id number] [place] [address] [place] AST [Catalytic activity/Vol] 21 U/L Normal 14-40 [facility] Comment on above: Order Comment: Speci men Type: BLOOD SPECIMENOrdering Facility: [facility] Address: [address] [place] [address] Performed By: #### 2 4323-8, 308- ####[facility] LABCLIA [id number] [place] [address] [place] Bilirubin [Mass/Vol] 0.8 mg/dL Normal 0.2-1.3 [facility] Comment on above: Order Comment: Speci men Type: BLOOD SPECIMENOrdering Facility: [facility] Address: [address] [phone] Performed By: #### 2 4323-8, 3083- ####[facility] LABCLIA [id number] [place] [address] [place] Calcium [Mass/Vol] 8.9 mg/dL Normal 8.5-10.2 [facility] Comment on above: Order Comment: Speci men Type: BLOOD SPECIMENOrdering Facility: [facility] Address: [address] [place] [place] [phone] Performed By: #### 2 4323-8, 3083- ####[facility] LABCLIA [id number] [place] [id number] [place] Chloride [Moles/Vol] 104 mmol/L Normal 98-107 [facility] Comment on above: Order Comment: Speci men Type: BLOOD SPECIMENOrdering Facility: [facility] Address: [address] [place] [address] Performed By: #### 2 4323-8, 3083-03 ####[facility] LABCLIA [id number] [place] [address] [place] CO2 [Moles/Vol] 30 mmol/L Normal 22-30 [facility] Comment on above: Order Comment: Speci men Type: BLOOD SPECIMENOrdering Facility: [facility] Address: [address] [phone] Performed By: #### 2 4323-8, 3083-03 ####[facility] LABCLIA [id number] [place] [address] [place] Creatinine [Mass/Vol] 1.28 mg/dL High 0.73-1.22 [facility] Comment on above: Order Comment: Speci men Type: BLOOD SPECIMENOrdering Facility: [facility] Address: [address] [phone] Performed By: #### 2 4323-8, 3083- ####[facility] LABCLIA [id number] [place] [phone] [place] Creatinine and Glomerular filtration rate.predicted panel (S/P/Bld) 69 mL/min/1.73m??? Normal >=60 [facility] Comment on above: Order Comment: Idalmis castro Type: BLOOD SPECIMENOrdering Facility: [facility] Address: [address] [place] [address] Result Comment: Karon mated Glomerular Filtration Rate (eGFR) is calculated using the 2020 CKD-EPI creatinine equation. This equation utilizes serum creatinine, sex, and age as parameters. The creatinine assay has traceable calibration to isotope dilution-mass spectrometry. Refer to KDIGO guidelines for clinical interpretation. In patients with unstable renal function, e.g. those with acute kidney injury, the eGFR may not accurately reflect actual GFR. Performed By: #### 2 4323-8, 308-1 ####[facility] LABCLIA [id number] [place] [phone] [place] Glucose [Mass/Vol] 96 mg/dL Normal 74-99 [facility] Comment on above: Order Comment: Idalmis castro Type: BLOOD SPECIMENOrdering Facility: [facility] Address: [address] [place] [address] Result Comment: The [place] [employer] (ADA) provides guidance for cutoff values for fasting glucose and random glucose. The ADA defines fasting as no caloric intake for at least 8 hours. Fasting plasma glucose results between 100 to 125 mg/dL indicate increased risk for diabetes (prediabetes). Fasting plasma glucose results greater than or equal to 126 mg/dL meet the criteria for diagnosis of diabetes. In the absence of unequivocal hyperglycemia, results should be confirmed by repeat testing. In a patient with classic symptoms of hyperglycemia or hyperglycemic crisis, random plasma glucose results greater than or equal to 200 mg/dL meet the criteria for diagnosis of diabetes. Reference: Standards of Medical Care in Diabetes 2016, [place] [employer]. Diabetes Care. 2016.39(Suppl 1). Performed By: #### 2 4323-8, 308-1 ####[facility] LABCLIA [id number] [place] [id number] [place] Potassium [Moles/Vol] 4.3 mmol/L Normal 3.7-5.1 [facility] Comment on above: Order Comment: Speci men Type: BLOOD SPECIMENOrdering Facility: [facility] Address: [address] [place] [address] Performed By: #### 2 4323-8, 3083- ####[facility] LABCLIA [id number] [place] [address] [place] Protein [Mass/Vol] 6.3 g/dL Normal 6.3-8.0 [facility] Comment on above: Order Comment: Speci men Type: BLOOD SPECIMENOrdering Facility: [facility] Address: [address] [place] [address] Performed By: #### 2 4323-8, 3083-03 ####[facility] LABIA [id number] [place] [address] [place] Sodium [Moles/Vol] 138 mmol/L Normal 136-144 [facility] Comment on above: Order Comment: Speci men Type: BLOOD SPECIMENOrdering Facility: [facility] Address: [address] [place] [address] Performed By: #### 2 4323-8, 3083-03 ####[facility] LABCLIA [id number] [place] [address] [place] Urea nitrogen [Mass/Vol] 16 mg/dL Normal 9-24 [facility] Comment on above: Order Comment: Speci men Type: BLOOD SPECIMENOrdering Facility: [facility] Address: [address] [place] [address] Performed By: #### 2 4323-8, 3083-03 ####[facility] LABCLIA [id number] [place] [address] [place] HISTORY PHYSICALon HISTORY PHYSICAL HNO ID: [id number] Author: SOHAM LEONARD, DO Service: ? Author Type: Physician Type: H&P Filed: 11/23/2023 11:21 Note Text: SERVICE DATE: 11/23/2023 SERVICE TIME: 10:32 AM SERVICE: General Surgery REFERRAL PHYSICIAN: No referring provider defined for this encounter. Rehan Monet is here today at the request of No referring provider defined for this encounter. for my opinion regarding left inguinal hernia. My final recommendation will be communicated back to the requesting physician by way of shared medical record or letter. 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 Small non-tender reducible umbilical hernia PLAN: I have discussed with patient regarding lap LIH repair with mesh, possible open. Risks, benefits and alternatives were discussed. Risks including but not limited to bleeding, pain, infection, scar(s), chronic pain after surgery, repeat procedure, injuries to bladder, colon, small bowel, other intra-abd organs, mesh complication, possible recurrence of symptoms, prolong hospital/surgical stay, cardiopulmonary event, seizure, stroke, allergic reaction to administered medication and . Patient's questions were answered to his satisfaction. Patient understands and wishes to proceed with surgery. Will schedule surgery at his convenience. Travel and lifting weight limit restrictions also discussed. Patient is fully aware of these restrictions. Discussed umbilical hernia and its repair at the same time if patient wishes; he wishes to observe at this time due to no symptoms. HPI: 48 year old y/o male self referred for evaluation of left groin pain that has been present for about a year. Patient states he typically has a feeling of dull annoyance in regards to discomfort but over the last several days he has had sharp pain with activities. Patient denies any presence of a bulge. Denies any change in bowel habits. Surgical history remarkable for left testicle removed due to torsion at age 13. PAST MEDICAL HISTORY No date: Gout 11/23/2023: NEGATIVE HISTORY OF Comment: NO pn,tb,dm,ca, heart dis No date: Sleep apnea PAST SURGICAL HISTORY No date: FINGER SURGERY HX; Right Comment: Right Thumb No date: SHOULDER SURGERY HX; Left No date: TESTICLE SURGERY HX; Left No date: TOOTH EXTRACTION Comment: [place] MEDICATIONS: Current Outpatient Medications: colchicine 0.6 mg capsule, Take 1 capsule by mouth once daily., Disp: 90 capsule, Rfl: 0 allopurinol (ZYLOPRIM) 100 mg tablet, Take 1 tablet by mouth once daily., Disp: 30 tablet, Rfl: 0 ALLERGIES No Known Allergies FAMILY HISTORY Problem Relation Age of Onset Diabetes Father Gout Brother Social History Tobacco Use Smoking status: Never Smokeless tobacco: Never REVIEW OF SYSTEMS: GENERAL: No weight loss, malaise or fevers HEENT: Negative for frequent or significant headaches, No changes in hearing or vision, no nose bleeds or other nasal problems NECK: Negative for lumps, goiter, pain and significant neck swelling RESPIRATORY: Negative for cough, hemoptysis, wheezing, COPD, dyspnea or shortness of breath, + sleep apnea CARDIOVASCULAR: Negative for chest pain, leg swelling, hypertension, CHF or palpitations GI: No nausea, vomiting, or diarrhea : See HPI MUSCULOSKELETAL: + gout SKIN: Negative for lesions, rash, and itching PSYCH: Negative NEURO: No history of headaches, syncope, paralysis, seizures or tremors PHYSICAL EXAM: BP 135/83 Pulse 67 Ht 177.8 cm (5' 10 ) Wt 85.7 kg (188 lb 15 oz) BMI 27.11 kg/m? Body mass index is 27.11 kg/m?. GENERAL: Healthy, alert, no distress, cooperative SKIN: Skin color, texture, turgor normal. No rashes or lesions. HEAD/SINUSES: No significant findings NECK: Supple ABDOMEN: Soft, nontender and + small reducible non-tender umbilical hernia. EXTREMITIES: No ulcers NEURO: Grossly normal cognition, motor function GENITALIA MALE: + small mildly tender left inguinal hernia at the pubic tubercle, reducible; left testicle absent. Diagnostic tests reviewed for today's visit: No new labs SIGNATURE: Aretha Donato RN PATIENT NAME: Rehan Monet DATE: November 23, 2023 TIME: 10:32 AM Park Leonard, DO Normal [facility] Urate [Mass/Vol] 7.1 mg/dL Normal 4.0-8.1 Tahmina zuleta [facility] Comment on above: Order Comment: Speci men Type: BLOOD SPECIMENOrdering Facility: [facility] Address: [address] [place] [address] Performed By: #### 2 4323-8, 3084-1 ####[facility] LABCLIA [id number] [address] OF [place] CNPJamilah 10-24-2023 CNPN Telephone (RHARMN) URSULAREHAN Rodríguez ([id number]) 1975 M Date Time Provider Department 10/24/23 LISETTE FRAZIER ARMN During your visit today, we recorded the following information about you: Lisette Frazier MD 10/24/2023 10:42 AM Signed The patient was called for an updated on his lab results CMP showed Cr of 1.3 (the patient was instructed on avoidance of NSAIDs and need to follow this) Uric acid was 9.7 (the patient was instructed on the need of urate lowering therapy and that the target in his case is <6) Plan: Allopurinol 100 mg po daily Colchicine 0.6 mg po daily Repeat CBC, CMP and uric acid in 1 month Allergies As of Date: 10/24/2023 (No Known Allergies) Date Reviewed: 10/21/2023 Reviewed by: Cristiane Rinaldi MA - Fully Assessed Reason for Visit: Results [95] Patient Update [1234] Orders [681] Primary Visit Diagnosis:Chronic gout of multiple sites, unspecified cause [M1A.09X0] Order(s):allopurinol (ZYLOPRIM) 100 mg tabletTake 1 tablet by mouth once daily.Disp: 30 tabletRfl: 0 colchicine 0.6 mg capsuleTake 1 capsule by mouth once daily.Disp: 90 capsuleRfl: 0 COMPLETE BLOOD COUNT AND DIFFERENTIAL [SQCBCDIF] Order #: [id number] FUTURE COMPREHENSIVE METABOLIC PANEL [SQCMP] Order #: [id number] FUTURE URIC ACID [SQURIC] Order #: [id number] FUTURE Prescriptions as of 11/16/2023 - allopurinol (ZYLOPRIM) 100 mg tablet Take 1 tablet by mouth once daily. - colchicine 0.6 mg capsule Take 1 capsule by mouth once daily. 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 COLCHICINE 0.6 MG CAPSULE 90 c* 0 10/24/2023 01/22/2024 Route: ORAL Sig: Take 1 capsule by mouth once daily. Letter Text Encounter Status:Closed by LISETTE FRAZIER on 10/24/23 Normal [facility] C-REACTIVE PROTEINon 024 CRP [Mass/Vol] mg/dL [facility] - 0.9 mg/dL [facility] CBC W Auto Differential pane l (Bld)on 10-21-2023 Basophils (Bld) [#/Vol] 0.07 10*3/uL [facility] Basophils/100 WBC (Bld) 0.9 % [facility] Differential cell count method Nom (Bld) Auto [facility] Eosinophils (Bld) [#/Vol] 0.23 10*3/uL [facility] Eosinophils/100 WBC (Bld) 3.0 % [facility] Erythrocyte distribution width (RBC) [Ratio] 12.4 % 11.5 - 15.0 % [facility] Hematocrit (Bld) [Volume fraction] 44.7 % 39.0 - 51.0 % [facility] Hemoglobin (Bld) [Mass/Vol] 15.1 g/dL 13.0 - 17.0 g/dL [facility] Immature granulocytes (Bld) [#/Vol] 0.18 10*3/uL High [facility] Immature granulocytes/100 WBC (Bld) 2.3 % [facility] Interpretation and review of laboratory results Abnormal [facility] Lymphocytes (Bld) [#/Vol] 2.49 10*3/uL [facility] Lymphocytes/100 WBC (Bld) 32.5 % [facility] MCH (RBC) [Entitic mass] 29.5 pg 26.0 - 34.0 pg [facility] MCHC (RBC) [Mass/Vol] 33.8 g/dL 30.5 - 36.0 g/dL [facility] MCV (RBC) [Entitic vol] 87.5 fL 80.0 - 100.0 fL [facility] Monocytes (Bld) [#/Vol] 0.66 10*3/uL [facility] Monocytes/100 WBC (Bld) 8.6 % [facility] Neutrophils (Bld) [#/Vol] 4.03 10*3/uL [facility] Neutrophils/100 WBC (Bld) 52.7 % [facility] Nucleated RBC (Bld) [#/Vol] NINF [facility] Nucleated RBC/100 WBC (Bld) [Ratio] 0.0 % /100 WBC [facility] Platelet mean volume (Bld) [Entitic vol] 9.2 fL 9.0 - 12.7 fL [facility] Platelets (Bld) [#/Vol] 291 10*3/uL [facility] RBC (Bld) [#/Vol] 5.11 10*6/uL 4.20 - 6.0 0 m/uL [facility] WBC (Bld) [#/Vol] 7.66 10*3/uL [facility] Basophils (Bld) [#/Vol] 0.07 10*3/uL Normal <0.11 [facility] Comment on above: Order Comment: Speci men Type: BLOOD SPECIMENOrdering Facility: [facility] Address: [address] [place] [address] Performed By: #### 5 7021-8, 4537-7 ####[facility] LABCLIA [id number] [address] [place] Basophils/100 WBC (Bld) 0.9 % Normal [facility] Comment on above: Order Comment: Speci men Type: BLOOD SPECIMENOrdering Facility: [facility] Address: [address] [place] [address] Performed By: #### 5 7021-8, 4537-7 ####[facility] LABCLIA [id number] [place] [address] [place] Differential cell count method Nom (Bld) Auto Normal [facility] Comment on above: Order Comment: Speci men Type: BLOOD SPECIMENOrdering Facility: [facility] Address: [address] [place] [address] Performed By: #### 5 7021-8, 4537-7 ####[facility] LABCLIA [id number] [place] [address] [place] Eosinophils (Bld) [#/Vol] 0.23 10*3/uL Normal <0.46 [facility] Comment on above: Order Comment: Speci men Type: BLOOD SPECIMENOrdering Facility: [facility] Address: [address] [place] [address] Performed By: #### 5 7021-8, 7-7 ####[facility] LABCLIA [id number] [place] [address] [place] Eosinophils/100 WBC (Bld) 3.0 % Normal [facility] Comment on above: Order Comment: Speci men Type: BLOOD SPECIMENOrdering Facility: [facility] Address: [address] [place] [address] Performed By: #### 5 7021-8, 4536-7 ####[facility] LABCLIA [id number] [place] [address] [place] Erythrocyte distribution width (RBC) [Ratio] 12.4 % Normal 11.5-15.0 [facility] Comment on above: Order Comment: Speci men Type: BLOOD SPECIMENOrdering Facility: [facility] Address: [address] [place] [address] Performed By: #### 5 7021-8, 4536-7 ####[facility] LABCLIA [id number] [place] [address] [place] Hematocrit (Bld) [Volume fraction] 44.7 % Normal 39.0-51.0 [facility] Comment on above: Order Comment: Speci men Type: BLOOD SPECIMENOrdering Facility: [facility] Address: [address] [place] [address] Performed By: #### 5 7021-8, 4536-7 ####[facility] LABCLIA [id number] [place] [address] [place] Hemoglobin (Bld) [Mass/Vol] 15.1 g/dL Normal 13.0-17.0 [facility] Comment on above: Order Comment: Speci men Type: BLOOD SPECIMENOrdering Facility: [facility] Address: [address] [place] [address] Performed By: #### 5 7021-8, 4536-7 ####[facility] LABCLIA [id number] [place] [address] [place] Immature granulocytes (Bld) [#/Vol] 0.18 10*3/uL High <0.10 [facility] Comment on above: Order Comment: Speci men Type: BLOOD SPECIMENOrdering Facility: [facility] Address: [address] [place] [address] Performed By: #### 5 7021-8, 4536-7 ####[facility] LABCLIA [id number] [place] [address] [place] Immature granulocytes/100 WBC (Bld) 2.3 % Normal [facility] Comment on above: Order Comment: Speci men Type: BLOOD SPECIMENOrdering Facility: [facility] Address: [address] [place] [address] Performed By: #### 5 7021-8, 4536-7 ####[facility] LABCLIA [id number] [place] [address] [place] Lymphocytes (Bld) [#/Vol] 2.49 10*3/uL Normal 1.00-4.00 [facility] Comment on above: Order Comment: Speci men Type: BLOOD SPECIMENOrdering Facility: [facility] Address: [address] [place] [address] Performed By: #### 5 7021-8, 4537-7 ####[facility] LABCLIA [id number] [place] [address] [place] Lymphocytes/100 WBC (Bld) 32.5 % Normal [facility] Comment on above: Order Comment: Speci men Type: BLOOD SPECIMENOrdering Facility: [facility] Address: [address] [place] [address] Performed By: #### 5 7021-8, 4536-7 ####[facility] LABCLIA [id number] [place] [address] [place] MCH (RBC) [Entitic mass] 29.5 pg Normal 26.0-34.0 [facility] Comment on above: Order Comment: Speci men Type: BLOOD SPECIMENOrdering Facility: [facility] Address: [address] [place] [address] Performed By: #### 5 7021-8, 4536-7 ####[facility] LABIA [id number] [place] [address] [place] MCHC (RBC) [Mass/Vol] 33.8 g/dL Normal 30.5-36.0 [facility] Comment on above: Order Comment: Speci men Type: BLOOD SPECIMENOrdering Facility: [facility] Address: [address] [place] [address] Performed By: #### 5 7021-8, 4537-7 ####[facility] LABIA [id number] [place] [address] [place] MCV (RBC) [Entitic vol] 87.5 fL Normal 80.0-100.0 [facility] Comment on above: Order Comment: Speci men Type: BLOOD SPECIMENOrdering Facility: [facility] Address: [address] [place] [address] Performed By: #### 5 7021-8, 4536-7 ####[facility] LABCLIA [id number] [place] [address] [place] Monocytes (Bld) [#/Vol] 0.66 10*3/uL Normal <0.87 [facility] Comment on above: Order Comment: Speci men Type: BLOOD SPECIMENOrdering Facility: [facility] Address: [address] [place] [address] Performed By: #### 5 7021-8, 7 ####[facility] LABCLIA [id number] [place] [address] [place] Monocytes/100 WBC (Bld) 8.6 % Normal [facility] Comment on above: Order Comment: Speci men Type: BLOOD SPECIMENOrdering Facility: [facility] Address: [address] [place] [address] Performed By: #### 5 7021-8, 7 ####[facility] LABCLIA [id number] [place] [address] [place] Neutrophils (Bld) [#/Vol] 4.03 10*3/uL Normal 1.45-7.50 [facility] Comment on above: Order Comment: Speci men Type: BLOOD SPECIMENOrdering Facility: [facility] Address: [address] [place] [address] Performed By: #### 5 7021-8, 7 ####[facility] LABCLIA [id number] [place] [address] [place] Neutrophils/100 WBC (Bld) 52.7 % Normal [facility] Comment on above: Order Comment: Speci men Type: BLOOD SPECIMENOrdering Facility: [facility] Address: [address] [place] [address] Performed By: #### 5 7021-8, 4536-7 ####[facility] LABCLIA [id number] [place] [address] [place] Nucleated RBC (Bld) [#/Vol] 10*3/uL Normal <0.01 [facility] Comment on above: Order Comment: Speci men Type: BLOOD SPECIMENOrdering Facility: [facility] Address: [address] [place] [address] Performed By: #### 5 7021-8, 7-7 ####[facility] LABCLIA [id number] [place] [address] [place] Nucleated RBC/100 WBC (Bld) [Ratio] 0.0 /100 WBC Normal [facility] Comment on above: Order Comment: Speci men Type: BLOOD SPECIMENOrdering Facility: [facility] Address: [address] [place] [address] Performed By: #### 5 7021-8, 4536-7 ####[facility] LABCLIA [id number] [place] [address] [place] Platelet mean volume (Bld) [Entitic vol] 9.2 fL Normal 9.0-12.7 [facility] Comment on above: Order Comment: Speci men Type: BLOOD SPECIMENOrdering Facility: [facility] Address: [address] [place] [address] Performed By: #### 5 7021-8, 4536-7 ####[facility] LABCLIA [id number] [place] [address] [place] Platelets (Bld) [#/Vol] 291 10*3/uL Normal 150-400 [facility] Comment on above: Order Comment: Speci men Type: BLOOD SPECIMENOrdering Facility: [facility] Address: [address] [place] [address] Performed By: #### 5 7021-8, 4536-7 ####[facility] LABCLIA [id number] [place] [address] [place] RBC (Bld) [#/Vol] 5.11 10*6/uL Normal 4.20-6.00 [facility] Comment on above: Order Comment: Speci men Type: BLOOD SPECIMENOrdering Facility: [facility] Address: [address] [place] [address] Performed By: #### 5 7021-8, 4537-7 ####[facility] LABCLIA [id number] [place] [id number] [place] WBC (Bld) [#/Vol] 7.66 10*3/uL Normal 3.70-11.00 [facility] Comment on above: Order Comment: Speci men Type: BLOOD SPECIMENOrdering Facility: [facility] Address: [address] [place] [address] Performed By: #### 5 7021-8, 4537-7 ####[facility] LABCLIA [id number] [address] [place] CNOVon 10-21-2023 CNOV Office Visit (RHEUMN ) REHAN MONET ([id number]) 1975 M Date Time Provider Department 10/21/23 8:00 AM LISETTE FRAZIER During your visit today, we recorded the following information about you: Temperature Pulse Blood pressure Height 97.5 degrees 66/minute 153/96 1.778 m Lisette Frazier MD 10/21/2023 10:34 AM Addendum Rheumatology CONSULTATION Date of Service: 10/21/2023 Patient: Rehan Monet Medical Record: [id number] Primary Care Physician: Kirby Aldrich DO Last Rheumatology visit: 10/21/2023 (with Lisette Frazier) Referring Provider: No referring provider defined for this encounter. History of Present Illness Rehan Monet is a 48 year old White male who presents on 10/21/2023 for an in-person visit for evaluation of Gout. A 48 y/o M patient with PMHX of IVETH (non-compliant with CPAP), gout who presents for further evaluation. The patient reported that his first episode was 6 years ago in his right ankle, it got swollen and red, was unable to walk on it, and though he had broke it, he used Ice and prednisone and it took care of it back then. Since then he was educated about gout but elected not to be started on urate lowering therapy medications. Reported that uric acid might have been at 11 at that time. He has on average 6-7 episodes annually that he manages mainly with ibuprofen/prednisone. Most recent episode was about 10 days ago and involved the big toe of his left foot which is a usual place for his flares. He notices some knee pain but no swelling or redness similar to the appearance in the feet. The pain fluctuates between 10/10 at times and 3/10 He is usually doing great between episodes. He reports morning stiffness in both feet that resolved usually within 1 hour. Reports he is stick to a diet low in meat and high fructose corn syrup, he also cut down on his alcohol Diet habits mostly: Breakfast, smoothie, oat meal Lunch , salad, minimize dressing Dinner Try to keep an eye on that too PMHX: as mentioned PSHX: Torn labrum left shoulder 20 yrs ago, Broken right thumb SH: No smoking Alcohol, twice monthly, 2 drinks vodka, wine FH: Brother with gout Pain Evaluation 04/17/2020 Pain Evaluation Pain Score 5 Location Shoulder-Left Description Other: See comment Duration (#) 2 Duration (Timeframe) Days Frequency Continuous Intervention Reposition;Relaxation ;Positioning Patient-Entered Data PROMIS Assessments 10/16/2023 PROMIS Global Health - (T-Scores - the mean of general population = 50. Five points is a clinically meaningful difference.) Physical T-Score 44.9 Mental T-Score 53.3 10/16/2023 PROMIS CAT Pain Interference PROMIS Pain Interference T-Score (range: 10 - 90) 68 (moderate) PROMIS Pain Interference Percentile 4 PROMIS Adult Short Form-Global Health Score (Mental) 53.3 (Very Good) 10/16/2023 PROMIS CAT Fatigue PROMIS Fatigue T-Score 39 (within normal limits) PROMIS Fatigue Percentile 86 10/16/2023 PROMIS PHYSICAL FUNCTION T-SCORE PROMIS Physical Function T-Score 61 (within normal limits) Physical Function Percentile 86 RAPID 3 [place] Activities of Daily Living 10/16/2023 7:56 AM Dress self? With SOME difficulty Get in and out of bed? Without ANY difficulty Walk outdoors? With MUCH difficulty Wash and dry body? Without ANY difficulty Get in and out of car? With SOME difficulty RAPID 3 Disease Activity Weighed Score Levels: 0 - 1: Near Remission 1.3 - 2.0: Low Severity 2.3 - 4.0: Moderate Severity 4.3 - 10.0: High Severity 10/16/2023 RAPID-3 Weighed Score RAPID 3 Weighed Score 5.39 (High severity ) Review of Systems Review of Systems CONSTITUTION: Negative for: Fever and Recent weight change HEENT: Negative for: Nosebleeds, Mouth sores, Trouble swallowing and Dry mouth RESPIRATORY: Negative for: Cough, Shortness of breath and Pain with breathing GASTROINTESTINAL: Negative for: Melena, Diarrhea, Heartburn and Abdominal pain MUSCULOSKELETAL: Positive for: Arthralgias, Joint swelling and Morning Joint Stiffness Negative for: Myalgias and Muscle weakness NEUROLOGICAL: Negative for: Headaches, Numbness and Memory loss SKIN: Negative for: Rash, Skin changes, Hair loss and Nail changes EYES: Negative for: Eye pain, Eye redness, Eye dryness and visual disturbance CARDIOVASCULAR: Negative for: Chest pain and Leg swelling GENITOURINARY: Negative for: Dysuria and Hematuria HEMATOLOGIC/LYMPHATIC : Negative for: Swollen glands All other reviewed and negative other than HPI. Past Medical History PAST MEDICAL HISTORY Diagnosis Date Gout Sleep apnea Past Surgical History PAST SURGICAL HISTORY Procedure Laterality Date FINGER SURGERY HX Right Right Thumb SHOULDER SURGERY HX Left TESTICLE SURGERY HX Left TOOTH EXTRACTION [place] [facility] Family History FAMILY HISTORY Problem Relatio (more content not included)... Normal [facility] CRP SerPl-mCncon 10-21-2023 CRP [Mass/Vol] mg/L Normal <0.9 [facility] Comment on above: Order Comment: Speci men Type: BLOOD SPECIMENOrdering Facility: [facility] Address: [address] [place] [address] Performed By: #### 1 988-5, 3084-1, 40262-0 ####[facility] LABCLIA [id number] [place] [id number] [place] CRP [Mass/Vol]on 10-21-2023 Interpretation and review of laboratory results Normal [facility] Comprehensive metabolic 2000 panelon 10-21-2023 Albumin [Mass/Vol] 4.4 g/dL 3.9 - 4.9 g/dL [facility] ALP [Catalytic activity/Vol] 65 U/L 38 - 113 U/L [facility] ALT [Catalytic activity/Vol] 27 U/L 10 - 54 U/L [facility] Anion gap [Moles/Vol] 12 mmol/L 8 - 15 mmol/L [facility] AST [Catalytic activity/Vol] 27 U/L 14 - 40 U/L [facility] Bilirubin [Mass/Vol] 0.5 mg/dL 0.2 - 1 .3 mg/dL [facility] Calcium [Mass/Vol] 9.1 mg/dL 8.5 - 10. 2 mg/dL [facility] Chloride [Moles/Vol] 100 mmol/L 98 - 10 7 mmol/L [facility] CO2 [Moles/Vol] 25 mmol/L 22 - 30 mmol/L [facility] Creatinine [Mass/Vol] 1.30 mg/dL High 0.73 - 1.22 mg/dL [facility] GFR/1.73 sq M.predicted among non-blacks MDRD (S/P/Bld) [Vol rate/Area] 67 mL/min/{1.73_m2} - PINF [facility] Comment on above: Estimated Glomerular Filtration Rate (eGFR) is calculated using the 2020 CKD-EPI creatinine equation. This equation utilizes serum creatinine, sex, and age as parameters. The creatinine assay has traceable calibration to isotope dilution-mass spectrometry. Refer to KDIGO guidelines for clinical interpretation. In patients with unstable renal function, e.g. those with acute kidney injury, the eGFR may not accurately reflect actual GFR. Glucose [Mass/Vol] 93 mg/dL 74 - 99 mg/dL [facility] Comment on above: The [place] Diabete s Association (ADA) provides guidance for cutoff values for fasting glucose and random glucose. The ADA defines fasting as no caloric intake for at least 8 hours. Fasting plasma glucose results between 100 to 125 mg/dL indicate increased risk for diabetes (prediabetes). Fasting plasma glucose results greater than or equal to 126 mg/dL meet the criteria for diagnosis of diabetes. In the absence of unequivocal hyperglycemia, results should be confirmed by repeat testing. In a patient with classic symptoms of hyperglycemia or hyperglycemic crisis, random plasma glucose results greater than or equal to 200 mg/dL meet the criteria for diagnosis of diabetes. Reference: Standards of Medical Care in Diabetes 2016, [place] [employer] Association. Diabetes Care. 2016.39(Suppl 1). Potassium [Moles/Vol] 4.2 mmol/L 3.7 - 5.1 mmol/L [facility] Protein [Mass/Vol] 6.6 g/dL 6.3 - 8.0 g/dL [facility] Sodium [Moles/Vol] 137 mmol/L 136 - 144 mmol/L [facility] Urea nitrogen [Mass/Vol] 19 mg/dL 9 - 24 mg/dL [facility] Albumin [Mass/Vol] 4.4 g/dL Normal 3.9-4.9 [facility] Comment on above: Order Comment: Idalmis castro Type: BLOOD SPECIMENOrdering Facility: [facility] Address: [address] [place] [address] Performed By: #### 1 988-5, 3084-1, 66427-6 ####[facility] [id number] [place] [address] [place] ALP [Catalytic activity/Vol] 65 U/L Normal 38-113 [facility] Comment on above: Order Comment: Idalmis castro Type: BLOOD SPECIMENOrdering Facility: [facility] Address: [address] [place] [address] Performed By: #### 1 988-5, 3084-1, 42505-0 ####[facility] [id number] [place] [address] [place] ALT [Catalytic activity/Vol] 27 U/L Normal 10-54 [facility] Comment on above: Order Comment: Shaggyi gloria Type: BLOOD SPECIMENOrdering Facility: [facility] Address: [address] [place] [address] Performed By: #### 1 988-5, 3084-1, 64924-3 ####[facility] LABCLIA [id number] [address] [address] [place] Anion gap [Moles/Vol] 12 mmol/L Normal 8-15 [facility] Comment on above: Order Comment: Speci men Type: BLOOD SPECIMENOrdering Facility: [facility] Address: [address] [place] [address] Performed By: #### 1 988-5, 3083-03, ####[facility] LABCLIA [id number] [place] [id number] [place] AST [Catalytic activity/Vol] 27 U/L Normal 14-40 [facility] Comment on above: Order Comment: Speci men Type: BLOOD SPECIMENOrdering Facility: [facility] Address: [address] [place] [address] Performed By: #### 1 988-5, 3083-03, ####[facility] LABCLIA [id number] [place] [id number] [place] Bilirubin [Mass/Vol] 0.5 mg/dL Normal 0.2-1.3 [facility] Comment on above: Order Comment: Speci men Type: BLOOD SPECIMENOrdering Facility: [facility] Address: [address] [place] [address] Performed By: #### 1 988-5, 3083-03, ####[facility] LABCLIA [id number] [address] [address] [place] Calcium [Mass/Vol] 9.1 mg/dL Normal 8.5-10.2 [facility] Comment on above: Order Comment: Speci men Type: BLOOD SPECIMENOrdering Facility: [facility] Address: [address] [place], [place] [address] Performed By: #### 1 988-5, 30806-26, ####[facility] LABCLIA [id number] [place] [address] [place] Chloride [Moles/Vol] 100 mmol/L Normal 98-107 [facility] Comment on above: Order Comment: Speci men Type: BLOOD SPECIMENOrdering Facility: [facility] Address: [address] [place] [address] Performed By: #### 1 988-5, 3084-1, 15134-6 ####[facility] LABIA [id number] [place] [id number] [place] CO2 [Moles/Vol] 25 mmol/L Normal 22-30 [facility] Comment on above: Order Comment: Speci men Type: BLOOD SPECIMENOrdering Facility: [facility] Address: [address] [place] [address] Performed By: #### 1 988-5, 3084-1, 49586-9 ####[facility] [id number] [place] [address] [place] Creatinine [Mass/Vol] 1.30 mg/dL High 0.73-1.22 [facility] Comment on above: Order Comment: Speci men Type: BLOOD SPECIMENOrdering Facility: [facility] Address: [address] [place] [address] Performed By: #### 1 988-5, 3084-1, 78752-7 ####[facility] [id number] [place] [address] [place] Creatinine and Glomerular filtration rate.predicted panel (S/P/Bld) 67 mL/min/1.73m??? Normal >=60 [facility] Comment on above: Order Comment: Speci men Type: BLOOD SPECIMENOrdering Facility: [facility] Address: [address] [place] [address] Result Comment: Karon mated Glomerular Filtration Rate (eGFR) is calculated using the 2020 CKD-EPI creatinine equation. This equation utilizes serum creatinine, sex, and age as parameters. The creatinine assay has traceable calibration to isotope dilution-mass spectrometry. Refer to KDIGO guidelines for clinical interpretation. In patients with unstable renal function, e.g. those with acute kidney injury, the eGFR may not accurately reflect actual GFR. Performed By: #### 1 988-5, 3083-03, ####[facility] LABCLIA [id number] [address] [address] [place] Glucose [Mass/Vol] 93 mg/dL Normal 74-99 [facility] Comment on above: Order Comment: Idalmis castro Type: BLOOD SPECIMENOrdering Facility: [facility] Address: [address] [place] [address] Result Comment: The [place] Diabetes Association (ADA) provides guidance for cutoff values for fasting glucose and random glucose. The ADA defines fasting as no caloric intake for at least 8 hours. Fasting plasma glucose results between 100 to 125 mg/dL indicate increased risk for diabetes (prediabetes). Fasting plasma glucose results greater than or equal to 126 mg/dL meet the criteria for diagnosis of diabetes. In the absence of unequivocal hyperglycemia, results should be confirmed by repeat testing. In a patient with classic symptoms of hyperglycemia or hyperglycemic crisis, random plasma glucose results greater than or equal to 200 mg/dL meet the criteria for diagnosis of diabetes. Reference: Standards of Medical Care in Diabetes 2016, [place] Diabetes Association. Diabetes Care. 2016.39(Suppl 1). Performed By: #### 1 988-5, 3083-03, ####[facility] LABCLIA [id number] [facility] [address] [address] [place] Potassium [Moles/Vol] 4.2 mmol/L Normal 3.7-5.1 [facility] Comment on above: Order Comment: Idalmis castro Type: BLOOD SPECIMENOrdering Facility: [facility] Address: [address] [place] [address] Performed By: #### 1 988-5, 3083-03, ####[facility] LABCLIA [id number] [address] [address] [place] Protein [Mass/Vol] 6.6 g/dL Normal 6.3-8.0 [facility] Comment on above: Order Comment: Speci men Type: BLOOD SPECIMENOrdering Facility: [facility] Address: [address] [place] [address] Performed By: #### 1 988-5, 3084-1, 86703-3 ####[facility] LABCLIA [id number] [place] [address] [place] Sodium [Moles/Vol] 137 mmol/L Normal 136-144 [facility] Comment on above: Order Comment: Speci men Type: BLOOD SPECIMENOrdering Facility: [facility] Address: [address] [place] [address] Performed By: #### 1 988-5, 3084-1, 59118-0 ####[facility] LABCLIA [id number] [place] [address] [place] Urea nitrogen [Mass/Vol] 19 mg/dL Normal 9-24 [facility] Comment on above: Order Comment: Speci men Type: BLOOD SPECIMENOrdering Facility: [facility] Address: [address] [place] [address] Performed By: #### 1 988-5, 3084-1, 24056-7 ####[facility] LABCLIA [id number] [place] [address] [place] ESR Westergren method (Bld) [Velocity]on 10-21-2023 ESR (Bld) [Velocity] 2 mm/h [facility] Interpretation and review of laboratory results Normal [facility] ESR (Bld) [Velocity] 2 mm/h Normal 0-15 [facility] Comment on above: Order Comment: Speci men Type: BLOOD SPECIMENOrdering Facility: [facility] Address: [address] [place] [address] Performed By: #### 5 7021-8, 4537-7 ####[facility] LABCLIA [id number] [place] [id number] [place] No Panel Informationon 10-20 Interpretation and review of laboratory results Abnormal [facility] URIC ACIDon 10-21-2023 Urate [Mass/Vol] 9.7 mg/dL High 4.0 - 8.1 mg/dL [facility] Urate SerPl-mCncon Urate [Mass/Vol] 9.7 mg/dL High 4.0-8.1 [facility] Comment on above: Order Comment: Speci men Type: BLOOD SPECIMENOrdering Facility: [facility] Address: [address] [place] [address] Performed By: #### 1 988-5, 3084-1, 55176-5 ####[facility] LABCLIA [id number] [place] [address] [place] [address] [address] soft tissue neck w conon 04-01-2022 [place] [address] CT Scan Report Signed Patient: Rehan Monet MR#: [id number] 08 : 1975 Acct:[id number] Age/Sex: 46 / M ADM Date: 04/01/22 Loc: CT Room: Type: [facility] Attending Dr: Alon Head DO Copies to: lAon Head DO Ordering Provider: Alon Head DO Date of Service: 04/01/22 CT/CT soft tissue neck w con: R59.0,R22.9 CT soft tissue neck w con 04/01/2022 2:36 PM SIGNS AND SYMPTOMS: Right-sided neck pain CONTRAST: 76 mL of intravenous Isovue-300 TECHNIQUE: Multidetector CT axial slices of the soft tissues of the neck were obtained with IV contrast. Sagittal and coronal reformats were reconstructed. CT was performed with one or more of the following dose reduction techniques: Automated exposure control, adjustment of the mA and/or kV according to patient size, or use of iterative reconstruction technique. COMPARISON: None FINDINGS: Soft tissues of the orbits are within normal limits. The soft tissues of the infratemporal fossa fossa structures show no acute abnormality. Mucosal surfaces of the nasopharynx, oropharynx, hypopharynx, glottic, and subglottic airways are grossly unremarkable. The parotid glands, submandibular, and the thyroid gland are within normal limits. The carotid and jugular circulations are within normal limits. The visualized lung parenchyma shows no acute pathology. No acute bony abnormalities are appreciated. There is moderate severe disc height loss at C7 with uncovertebral spurring contribute to neural foraminal narrowing bilaterally. The skull base, cran iocervical junction, atlantoaxial joints are within normal limits. The paranasal sinuses are within normal limits. CT/CT soft tissue neck w con IMPRESSION: No evidence of mass, soft tissue swelling, or abnormality enhancement. There is moderate severe disc height loss at C7 with uncovertebral spurring contribute to neural foraminal narrowing bilaterally. Impression dictated by: Liborio Goins M.D.04/01/2022 3:24 PM Dictation Location: [place] [address] Transcribed By: [facility] 04/01/22 1524 Dictated By: Liborio Goins II, MD 04/01/22 1518 Signed By: 04/01/22 1524 Normal [facility] XR HIP LT 2 3V W PELVISon XR HIP LT 2 3V W PELVIS EXAM: XR HIP LT 2 3V W PELVIS HISTORY: Lower abdominal pain COMPARISON: None. TECHNIQUE: 3 views FINDINGS: No fracture, dislocation or subluxation. The hip joints, pubic symphysis and sacroiliac joints along with the visualized lumbar spine are unremarkable. IMPRESSION: Normal x-rays Electronically authenticated by: ALON MILES Date: 2021-04-06 18:45 Normal [facility] MRI NECK WO W CONon 12-24-19 21 MRI NECK WO W CON MRI NECK WITH AND WITHOUT CONTRAST, 12/23/2020. HISTORY: Pain on left side of neck anteriorly. COMPARISON: None. TECHNIQUE: Axial T1, T2, T2 fat-saturation, sagittal T1, coronal T1, T2, T2 fat-saturation, postcontrast axial and coronal T1 fat-saturation images were obtained. 17 mL Dotarem. FINDINGS: [employer] spaces normal. Parotid glands appear normal. Submandibular glands are normal. The tongue and floor of the mouth normal. Nasopharynx, oropharynx, and retropharyngeal space are normal. Epiglottis normal. Vocal cords symmetric. No laryngeal mass. Thyroid gland normal. Visualized portion of the trachea and esophagus appear normal. No lymphadenopathy in the neck. No neck masses. No asymmetric soft tissue swelling, edema, or inflammation. No suspicious osseous lesions. No significant cervical spinal canal stenosis. No abnormal signal or pathologic enhancement in the cervical spinal cord. IMPRESSION: Normal MRI of the neck. Electronically authenticated by: TIAGO CLARK Date: 2020-12-23 15:39 Normal [facility] CBC AUTO DIFFon 12-04-2020 BASO # 0.1 103/ul Normal 0.0-0.1 [facility] Comment on above: Performed By: #### C BC #### [facility] [address] [place] [address] Yolie Keira Basophils/100 WBC (Bld) 0.5 % Normal 0.2-2.0 [facility] Comment on above: Performed By: #### C BC #### [facility] [address] [place] [address] Yolie Keira EO # 0.2 103/ul Normal 0.0-0.7 [facility] Comment on above: Performed By: #### C BC #### [facility] [address] [place] [address] Yolieeugenio Crockett Eosinophils/100 WBC (Bld) 2.5 % Normal 0.9-7.0 [facility] Comment on above: Performed By: #### C BC #### [facility] [address] [place] [address] Yolie Keira Erythrocyte distribution width (RBC) [Ratio] 12.2 % Normal 11.0-15.0 [facility] Comment on above: Performed By: #### C BC #### [facility] [address] [place], [place] [id number] Yolie Keira Hematocrit (Bld) [Volume fraction] 45.7 % Normal 42.0-54.0 [facility] Comment on above: Performed By: #### C BC #### [facility] [address] [place] [address] Yolie Keira Hemoglobin (Bld) [Mass/Vol] 15.4 g/dL Normal 14.0-18.0 [facility] Comment on above: Performed By: #### C BC #### [facility] [address] [place] [address] Yolieeugenio Crockett IG # 0.04 10e3/ul Critically high 0.00-0.03 [facility] Comment on above: Performed By: #### C BC #### [facility] [address] [place] [address] Yolie Keira IG % 0.4 % Normal 0.0-0.5 [facility] Comment on above: Performed By: #### C BC #### [facility] [address] [place] [address] Yolie Keira LYMPH # 2.0 103/ul Normal 1.2-3.8 [facility] Comment on above: Performed By: #### C BC #### [facility] [address] [place] [address] Yolie Crockett Lymphocytes/100 WBC (Bld) 22.0 % Normal 20.5-60.0 [facility] Comment on above: Performed By: #### C BC #### [facility] [address] [place] [address] Yolie Crockett MANUAL DIFF REQ NO Normal [facility] Comment on above: Performed By: #### C BC #### [facility] [address] [place] [address] Yolieeugenio Crockett MCH (RBC) [Entitic mass] 30.3 pg Normal 25.9-34.0 [facility] Comment on above: Performed By: #### C BC #### [facility] [address] [place] [address] Yolieeugenio Crockett MCHC (RBC) [Mass/Vol] 33.7 g/dL Normal 29.9-35.2 [facility] Comment on above: Performed By: #### C BC #### [facility] [address] [place] [address] Yolieeugenio Crockett MCV (RBC) [Entitic vol] 90.0 fL Normal 80.0-94.0 [facility] Comment on above: Performed By: #### C BC #### [facility] [address] [place], [place] [id number] Yolie Crockett MONO # 0.8 103/ul Normal 0.3-0.8 [facility] Comment on above: Performed By: #### C BC #### [facility] [address] [place], [place] [id number] Yolie Crockett Monocytes/100 WBC (Bld) 9.0 % Normal 1.7-12.0 [facility] Comment on above: Performed By: #### C BC #### [facility] [address] [place] [address] Yolie Wellingtonen NEUT # 6.1 103/ul Normal 1.4-6.5 [facility] Comment on above: Performed By: #### C BC #### [facility] [address] [place], [place] [id number] Yolie Crockett Neutrophils/100 WBC (Bld) 65.6 % Normal 43.0-75.0 [facility] Comment on above: Performed By: #### C BC #### [facility] [address] [place], [place] [id number] Yolie Crockett Platelet mean volume (Bld) [Entitic vol] 9.2 fL Critically low 9.5-13.5 [facility] Comment on above: Performed By: #### C BC #### [facility] [address] [place], [place] [address] Yolie Keira PLT 259 103/ul Normal 150-450 [facility] Comment on above: Performed By: #### C BC #### [facility] [address] [place], [place] [address] Yolie Keira RBC 5.08 106/ul Normal 4.70-6.10 [facility] Comment on above: Performed By: #### C BC #### [facility] [address] [place], [place] [address] Yolie Keira WBC 9.3 103/ul Normal 4.0-11.0 [facility] Comment on above: Performed By: #### C BC #### [facility] [address] [place], [place] [address] Yolie Keira CRPon 12-04-2020 CRP [Mass/Vol] mg/L Normal <=1.0 [facility] Comment on above: Performed By: #### B MP, CRP #### [facility] [address] [place] [id number] [address] HEAD WO CONon 12-04-2020 CT HEAD WO CON EXAMINATION: CT HEAD WO CON, 12/04/2020 9:38 AM EDT HISTORY: HEADACHE COMPARISON: None. TECHNIQUE: CT scan of the head was performed without IV contrast. CT dose reduction technique was used, including Automated Exposure Control. FINDINGS: BRAIN: No edema, hemorrhage, mass, acute infarction, or inappropriate atrophy. CSF SPACES: No hydrocephalus, subarachnoid hemorrhage, or mass. Appropriate for age. SKULL: No fracture, mass, or other significant visible lesion. SINUSES: No significant mucosal thickening or fluid on the limited views. ORBITS: No appreciable abnormality on the limited views. OTHER: Negative IMPRESSION: 1. No acute or suspicious abnormality. Electronically authenticated by: RONN PITTMAN Date: 2020-12-04 10:14 Normal [facility] PROF CHEM 8 (BAS METB)on Anion gap [Moles/Vol] 11.0 mmol/L Normal [facility] Comment on above: Performed By: #### B MP, CRP #### [facility] [address] [place] [address] Yolie Keira Calcium [Mass/Vol] 9.3 mg/dL Normal 8.4-10.2 [facility] Comment on above: Performed By: #### B MP, CRP #### [facility] [address] [place] [address] Yolie Keira Chloride [Moles/Vol] 105 mmol/L Normal 98-107 [facility] Comment on above: Performed By: #### B MP, CRP #### [facility] [address] [place] [address] Yolie Keira CO2 [Moles/Vol] 30.5 mmol/L Critically high 22.0-30.0 [facility] Comment on above: Performed By: #### B MP, CRP #### [facility] [address] [place], [place] [address] Yolie Keira Creatinine [Mass/Vol] 1.27 mg/dL Critically high 0.66-1.25 [facility] Comment on above: Performed By: #### B MP, CRP #### [facility] [address] [place], [place] [address] Yolie Keira EGFR-AF GAMBIAN >60 Normal >=60 [facility] Comment on above: Performed By: #### B MP, CRP #### [facility] [address] [place] [id number] Yolie Keira EGFR-NON AF GAMBIAN >60 Normal >=60 [facility] Comment on above: Performed By: #### B MP, CRP #### [facility] [address] [place] [address] Yolie Keira Glucose [Mass/Vol] 104 mg/dL Normal 74-106 [facility] Comment on above: Performed By: #### B MP, CRP #### [facility] [address] [place], [place] [address] Yolie Keira Potassium [Moles/Vol] 4.5 mmol/L Normal 3.4-5.0 [facility] Comment on above: Performed By: #### B MP, CRP #### [facility] [address] [place], [place] [address] Yolie Keira Sodium [Moles/Vol] 142 mmol/L Normal 137-145 [facility] Comment on above: Performed By: #### B MP, CRP #### [facility] [address] [place] [address] Yolie Keira Urea nitrogen [Mass/Vol] 17.0 mg/dL Normal 9.0-20.0 [facility] Comment on above: Performed By: #### B MP, CRP #### [facility] [address] [place], [place] [address] Yolie Keira Urea nitrogen/Creatinine [Mass ratio] 13.4 mg/mg Normal [facility] Comment on above: Performed By: #### B MP, CRP #### [facility] [address] [place], [place] [address] Yolie Crockett SED RATE WESTERGRENon 2020 SED RATE 9 mm/hr Normal <=15 [facility] Comment on above: Performed By: #### S EDR #### [facility] [address] [place] [id number] Yolei Crockett XR CSPINE 2_3 VIEWSon 2020 XR CSPINE 2_3 VIEWS EXAMINATION: XR CSPINE 2_3 VIEWS HISTORY: Neck pain ; left side head and neck chronic pain which has increased in severity COMPARISON: No relevant comparison available. FINDINGS: BONES: Reversal of the normal lordotic curvature. Minimal grade 1 retrolisthesis of C6 on C7. Mild degenerative facet arthropathy C5-6, C6-7. DISC SPACES: Moderate narrowing C6-7. PARASPINOUS: Negative. No paraspinous abnormality is seen. OTHER: Negative. IMPRESSION: 1. Reversal of normal lordotic curvature; positioning versus muscle spasm. 2. C6-7 moderate degenerative disc disease and mild degenerative facet arthropathy. Electronically authenticated by: RONN PITTMAN Date: 2020-12-04 11:37 Normal [facility] XR SHOULDER GENERAL 3V OR MO RE AP/TRUE AP/OTHER LTon 04-17-2020 [facility] Vital Signs Date Time Vital Sign Value Performing Clinician Facility 04-02-2024 13:47-0500 Body height 177.[address] [facility] 04-02-2024 13:47-0500 Body mass index (BMI) [Ratio] 26.9 kg/m2 [facility] 04-02-2024 13:47-0500 Body temperature 97.3 [degF] [facility] 04-02-2024 13:47-0500 Body weight 85.[address] [facility] 04-02-2024 13:47-0500 Diastolic blood pressure 98 mm[Hg] [facility] 04-02-2024 13:47-0500 Heart rate 68 /min [facility] 04-02-2024 13:47-0500 SaO2% (BldA) [Mass fraction] 98 % [facility] 04-02-2024 13:47-0500 Systolic blood pressure 138 mm[Hg] [facility] 11-25-2023 07:44-0400 Body height 177.8 cm Pacc 1 Work Phone: [facility] 11-25-2023 07:44-0400 Body mass index (BMI) [Ratio] 27.66 kg/m2 Pacc 1 Work Phone: [facility] 11-25-2023 07:44-0400 Body temperature 97.5 [degF] Pacc 1 Work Phone: [facility] 11-25-2023 07:44-0400 Body weight 87.45 kg Pacc 1 Work Phone: [facility] 11-25-2023 07:44-0400 Diastolic blood pressure 94 mm[Hg] Pacc 1 Work Phone: [facility] 11-25-2023 07:44-0400 Heart rate 67 /min Pacc 1 Work Phone: [facility] 11-25-2023 07:44-0400 SaO2% (BldA) [Mass fraction] 100 % Pacc 1 Work Phone: [facility] 11-25-2023 07:44-0400 Systolic blood pressure 153 mm[Hg] Pacc 1 Work Phone: [facility] 11-23-2023 10:16-0400 Body height 177.8 cm Park-Bharathi [place] DO Work Phone: [facility] 11-23-2023 10:16-0400 Body mass index (BMI) [Ratio] 27.11 kg/m2 Park-Bharathi [place] DO Work Phone: [facility] 11-23-2023 10:16-0400 Body weight 85.7 kg Park-Bharathi [place] DO Work Phone: [facility] 11-23-2023 10:16-0400 Diastolic blood pressure 83 mm[Hg] Park-Bharathi [place] DO Work Phone: [facility] 11-23-2023 10:16-0400 Heart rate 67 /min Park-Bharathi [place] DO Work Phone: [facility] 11-23-2023 10:16-0400 Systolic blood pressure 135 mm[Hg] Soham [place] DO Work Phone: [facility] 10-21-2023 08:08-0400 Body height 177.8 cm Lisette Frazier MD Work Phone: [facility] 10-21-2023 08:08-0400 Body temperature 97.5 [degF] Lisette Frazier MD Work Phone: [facility] 10-21-2023 08:08-0400 Diastolic blood pressure 96 mm[Hg] Lisette Frazier MD Work Phone: [facility] 10-21-2023 08:08-0400 Heart rate 66 /min Lisette Frazier MD Work Phone: [facility] 10-21-2023 08:08-0400 Systolic blood pressure 153 mm[Hg] Lisette Frazier MD Work Phone: [facility] 11-17-2022 15:00-0400 Body height 177.8 cm Alon Head Other [facility] Other 11-17-2022 15:00-0400 Body mass index (BMI) [Ratio] 25.82 kg/m2 Alon Head Other [facility] Other 11-17-2022 15:00-0400 Body weight 81.65 kg Alon Head Other [facility] Other 11-17-2022 15:00-0400 Diastolic blood pressure 88 mm[Hg] Alon Head Other [facility] Other 11-17-2022 15:00-0400 Respiratory rate 18 /min Alon Head Other [facility] Other 11-17-2022 15:00-0400 SaO2% (BldA) [Mass fraction] 98 % Alon Head Other [facility] Other 11-17-2022 15:00-0400 Systolic blood pressure 134 mm[Hg] Alon Head Other [facility] Other 08-30-2022 16:40-0400 Body height 177.8 cm Alon Head Other [facility] Other 08-30-2022 16:40-0400 Body mass index (BMI) [Ratio] 26.25 kg/m2 Alon Head Other [facility] Other 08-30-2022 16:40-0400 Body temperature 98.6 [degF] Alon Head Other [facility] Other 08-30-2022 16:40-0400 Body weight 83.01 kg Alon Head Other [facility] Other 08-30-2022 16:40-0400 Diastolic blood pressure 84 mm[Hg] Alon Head Other [facility] Other 08-30-2022 16:40-0400 Respiratory rate 18 /min Alon Head Other [facility] Other 08-30-2022 16:40-0400 SaO2% (BldA) [Mass fraction] 99 % Alon Head Other [facility] Other 08-30-2022 16:40-0400 Systolic blood pressure 138 mm[Hg] Alon Head Other [facility] Other 08-18-2021 10:15-0400 Body height 177.8 cm Alon Bellamy Other [facility] Other 08-18-2021 10:15-0400 Body mass index (BMI) [Ratio] 26.83 kg/m2 Alon Bellamy Other [facility] Other 08-18-2021 10:15-0400 Body temperature 98.6 [degF] Alon Josesito Other [facility] Other 08-18-2021 10:15-0400 Body weight 84.82 kg Alon [place] Other [facility] Other 08-18-2021 10:15-0400 Diastolic blood pressure 84 mm[Hg] Alon Bellamy Other [facility] Other 08-18-2021 10:15-0400 SaO2% (BldA) [Mass fraction] 99 % Alon Josesito Other [facility] Other 08-18-2021 10:15-0400 Systolic blood pressure 146 mm[Hg] Alon Josesito Other [facility] Other Encounters Encounter Date Encounter Type Care Provider Facility Start: 04-24-2024 End: 04-24-2024 Refill Lisette Frazier MD Work Phone: Rheumatology Comment on above: Refill Request Start: 04-02-2024 End: 04-02-2024 ambulatory [facility] Work Phone: Start: 04-02-2024 End: 04-02-2024 Patient encounter procedure [facility] [place] Work Phone: Start: 02-20-2024 End: 02-20-2024 Refill Lisette Frazier MD Work Phone: Rheumatology Comment on above: Refill Request Start: 12-29-2023 End: 12-29-2023 ambulatory PARK-BHARATHI LEONARD Facility:[facility] Start: 12-29-2023 End: 12-29-2023 Patient encounter procedure Soham [place] DO Work Phone: General Surgery Comment on above: Left groin pain (Nicole stanislav Dx); Postop check Start: 12-22-2023 End: 12-22-2023 ambulatory KIRBY ALDRICH Facility:[facility] Start: 12-22-2023 End: 12-22-2023 Patient encounter procedure Lisa Mendoza PA-C Work Phone: General Surgery Comment on above: Post-operative state (Primary Dx) Start: 12-21-2023 End: 12-21-2023 ambulatory Lisette Frazier MD Work Phone: Rheumatology Comment on above: 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, unspecified laterality (Primary Dx); Allopurinol adverse reaction, initial encounter Start: 12-21-2023 End: 12-21-2023 Telemedicine consultation with patient Lisette Frazier MD Work Phone: Rheumatology Start: 12-07-2023 End: 12-07-2023 Telephone encounter Aretha Donato RN Work Phone: General Surgery Start: 12-05-2023 End: 12-05-2023 ambulatory SOHAM LEONARD Facility:[facility] Start: 11-25-2023 End: 11-25-2023 Admission to establishment Pacc Taylor 1 Work Phone: Pre Anesthesia Start: 11-25-2023 End: 11-25-2023 ambulatory SOHAM LEONARD Facility:[facility] Start: 11-25-2023 End: 11-25-2023 Anesthesia consultation Pacc Taylor 1 Work Phone: Pre Anesthesia Comment on above: Sleep apnea, unspeci fied type (Primary Dx); Pre-op evaluation Start: 11-25-2023 End: 11-25-2023 Preprocedural examination done Pacc Taylor 1 Work Phone: [facility] Work Phone: Start: 11-24-2023 End: 11-29-2023 Refill iLsette Frazier MD Work Phone: Rheumatology Comment on above: Refill Request Start: 11-23-2023 End: 11-23-2023 Telephone encounter Soham [place] DO Work Phone: [facility] Comment on above: Schedule Surgery Start: 11-23-2023 End: 11-23-2023 ambulatory KIRBY ALDRICH Facility:[facility] Start: 11-23-2023 End: 11-23-2023 Patient encounter procedure Soham [place] DO Work Phone: General Surgery Comment on above: Left inguinal hernia (Primary Dx) Start: 11-22-2023 End: 11-22-2023 Refill Lisette Frazier MD Work Phone: Rheumatology Start: 10-24-2023 Telephone encounter Lisette velarde MD Work Phone: Rhe[facility] Comment on above: Results; Patient Upd ate; Orders Start: 10-21-2023 End: 10-21-2023 ambulatory KIRBY ALDRICH Facility:[facility] Start: 10-21-2023 End: 10-21-2023 Office outpatient new 60 minutes Lisette Frazier MD Work Phone: Rheumatology Comment on above: Acute idiopathic gou t of multiple sites (Primary Dx) Start: 08-25-2023 End: 08-25-2023 ambulatory VALDEMAR DUMONT Not Available Start: 05-05-2023 End: 05-05-2023 ambulatory Alon Head Other [facility] Other Start: 05-05-2023 Telephone encounter Alon Head [facility] Start: 02-01-2023 End: 02-01-2023 ambulatory Alon Head Other [facility] Other Start: 02-01-2023 Telephone encounter Alon Head [facility] Start: 12-22-2022 End: 12-22-2022 ambulatory Alon Head Other [facility] Other Start: 12-22-2022 Telephone encounter Alon Head [facility] Start: 12-08-2022 End: 12-08-2022 ambulatory Alon Head Other [facility] Other Start: 12-08-2022 Telephone encounter Alon Head [facility] [place] Start: 11-24-2022 End: 11-24-2022 ambulatory Alon Head Other [facility] Other Start: 11-24-2022 Telephone encounter Alon Head [facility] Start: 11-17-2022 End: 11-17-2022 ambulatory Alon Head Other [facility] Other Start: 11-17-2022 Office outpatient vi sit 15 minutes Alon Jayceejohn [facility] [place] Start: 11-17-2022 Telephone encounter Alon Head [facility] [place] Start: 11-04-2022 End: 11-04-2022 ambulatory Alon Head Other [facility] Other Start: 11-04-2022 Telephone encounter Alon Head [facility] [place] Start: 08-30-2022 End: 08-30-2022 ambulatory Alon Head Other [facility] Other Start: 08-30-2022 Nursing evaluation o f patient and report Alon Head [facility] [place] Start: 08-30-2022 Telephone encounter Alon Head [facility] [place] Start: 04-02-2022 End: 04-02-2022 ambulatory Alon Jayceejohn Other [facility] Other Start: 04-02-2022 Telephone encounter Alon Head [facility] [place] Start: 04-01-2022 End: 04-01-2022 ambulatory Alon Head Facility:[facility] Start: 04-01-2022 End: 04-01-2022 ambulatory DO Alon Head Work Phone: [facility] Work Phone: Start: 04-01-2022 End: 04-01-2022 Patient encounter procedure DO Alon Head Work Phone: [facility]-CT Scan [facility] [place] Work Phone: Start: 03-17-2022 End: 03-17-2022 ambulatory Alon Head Other [facility] Other Start: 03-17-2022 Telephone encounter Alon Head [facility] [place] Start: 01-22-2022 End: 01-22-2022 ambulatory Alon Head Other [facility] Other Start: 01-22-2022 Telephone encounter Alon Head [facility] [place] Start: 01-13-2022 End: 01-13-2022 ambulatory Alon Head Other [facility] Other Start: 01-13-2022 Telephone encounter Alon Head [facility] [place] Start: 08-18-2021 Office outpatient vi sit 25 minutes Alon [facility] Start: 08-18-2021 End: 08-18-2021 ambulatory Alon Head Roy Kleer Other Start: 08-18-2021 End: 08-18-2021 Patient encounter procedure DO Alon Head Work Phone: [facility]-Sleep Lab Start: 04-07-2021 End: 04-07-2021 ambulatory Alon Head Other [facility] Other Start: 04-07-2021 Telephone encounter Alon Head [facility] [place] Start: 04-06-2021 End: 04-07-[address] ALON HEAD Facility: Start: 03-23-2021 End: 03-23-2021 ambulatory Alon Head Other [facility] Other Start: 03-23-2021 Telephone encounter Alon Head [facility] [place] Start: 12-23-2020 End: 12-24-[address] ALON HEAD Facility:[facility] Start: 12-04-2020 End: 12-04-[address] ALON HEDA Facility:[facility] Start: 07-23-2020 End: 07-24-2020 ambulatory NONE LISTED REQUEST Facility:[facility] Start: 07-02-2020 End: 07-03-2020 ambulatory NONE LISTED REQUEST Facility:[facility] Start: 04-17-2020 End: 04-17-2020 Subsequent hospital visit by physician [facility]r [facility] Rej Work Phone: Radiology Comment on above: Pain [R52] Procedures Date Procedure Procedure Detail Performing Clinician Start: 04-01-2022 CT of soft tissues o f neck with contrast DO Alon Head Work Phone: Start: 04-17-2020 Radex shoulder compl ete minimum 2 views Rodrigue Bell MD Work Phone: Plan of Treatment Date Care Activity Detail Author Start: 11-22-2026 Diabetes Screening Diabetes Screenin [facility] Start: 10-20-2026 Diabetes Screening Diabetes Screenin [facility] Start: 03-16-2024 End: 03-16-2024 Patient encounter procedure 03/16/2024 1:00 PM EST Office Visit Rheumatology [address] [address] Lisette Frazier MD [address] [place], [place] [id number] gout fu per tom Rheumatology Comment on above: gout fu per [place] Start: 01-16-2024 End: 01-16-2024 Patient encounter procedure 01/16/2024 9:00 AM EDT Office Visit Rheumatology [address] [address] Lisette Frazier MD [address] [place] [address] gout fu per [place] Rheumatology Comment on above: gout fu per [place] Start: 12-22-2023 End: 12-22-2023 Patient encounter procedure 12/22/2023 8:00 AM EDT Office Visit General Surgery [address] [place] [id number] Lisa Mendoza PA-C [facility] [place] [address] 2 wk s/p Lap left inguinal hernia repair w mesh poss open [place] pt req am General Surgery Comment on above: 2 wk s/p Lap left in guinal hernia repair w mesh poss open [place] pt req am Start: 12-05-2023 End: 12-05-2023 Admission to same day surgery center 12/05/2023 12:35 PM EDT - 12/05/2023 2:10 PM EDT Surgery Ambulatory Surgery [address] [facility] [place] [address] Soham [place] DO [address] [place] [address] LAPAROSCOPIC HERNIORRHAPHY, INGUINAL INITIAL Ambulatory Surgery Comment on above: LAPAROSCOPIC HERNIOR RHAPHY, INGUINAL INITIAL Start: 12-05-2023 End: 12-05-2023 Laparoscopy surg rpr initial inguinal hernia LAPAROSCOPIC HERNIORRHAPHY, INGUINAL INITIAL Left inguinal hernia 12/05/2023 12:35 PM EDT [facility] [place] Start: 12-05-2023 Subsequent hospital visit by physician 12/05/2023 12:35 PM EDT Hospital Encounter Ambulatory Surgery [address] [facility] [place] [address] Soham [place] DO [address] [place] [address] Left inguinal hernia [K40.90] Ambulatory Surgery Comment on above: Left inguinal hernia [K40.90] Start: 12-05-2023 End: 12-05-2023 Admission to same day surgery center 12/05/2023 7:30 AM EDT - 12/05/2023 9:00 AM EDT Surgery Ambulatory Surgery [address] [place] [address] Soham Leonard DO [address] [place] [address] LAPAROSCOPIC HERNIORRHAPHY, INGUINAL INITIAL Ambulatory Surgery Comment on above: LAPAROSCOPIC HERNIOR RHAPHY, INGUINAL INITIAL Start: 12-05-2023 End: 12-05-2023 Laparoscopy surg rpr initial inguinal hernia LAPAROSCOPIC HERNIORRHAPHY, INGUINAL INITIAL Left inguinal hernia 12/05/2023 7:30 AM EDT [facility] Start: 12-05-2023 Subsequent hospital visit by physician 12/05/2023 7:30 AM EDT Hospital Encounter Ambulatory Surgery [address] [place] [address] Soham Leonard DO [address] [place] [address] Left inguinal hernia [K40.90] Ambulatory Surgery Comment on above: Left inguinal hernia [K40.90] Start: 11-27-2023 Covid-19 Vaccine ( season) Covid-19 Vaccine ( season) [facility] Start: 11-27-2023 Covid-19 Vaccine ( season) Covid-19 Vaccine ( season) [facility] Start: 11-27-2023 Influenza vaccination Influenza Vacc ine (#1) [facility] Start: 11-24-2023 End: 02-23-2024 CBC W Auto Differential panel - Blood COMPLETE BLOOD COUNT AND DIFFERENTIAL Lab Routine Chronic gout of multiple sites, unspecified cause Expected: 11/24/2023, Expires: 02/23/2024 [facility] Work Phone: Comment on above: Expected: 11/24/2023 , Expires: 02/23/2024 Start: 11-24-2023 End: 02-23-2024 Comprehensive metabolic 2000 panel - Serum or Plasma COMPREHENSIVE METABOLIC PANEL Lab Routine Chronic gout of multiple sites, unspecified cause Expected: 11/24/2023, Expires: 02/23/2024 [facility] Comment on above: Expected: 11/24/2023 , Expires: 02/23/2024 Start: 11-24-2023 End: 02-23-2024 Urate [Mass/volume] in Serum or Plasma URIC ACID Lab Routine Chronic gout of multiple sites, unspecified cause Expected: 11/24/2023, Expires: 02/23/2024 [facility] Comment on above: Expected: 11/24/2023 , Expires: 02/23/2024 Start: 11-26-2022 Covid-19 Vaccine () Covid-19 Vaccine () [facility] Start: 11-26-2022 Influenza vaccination Influenza Vacc ine (#1) [facility] Start: 03-28-2022 Depression Assessment Depression Ass essment [facility] Start: 05-30-2019 Cologuard (FIT-DNA) Cologuard (FIT-D NA) [facility] Start: 05-30-2019 Colonoscopy Colonoscopy [facility] Start: 05-30-2019 Colorectal Cancer Screening Colorectal Cancer Screening [facility] Start: 05-30-[address] Colonography [facility] Start: 05-30-2019 Diabetes Screening Diabetes Screenin g [facility] Start: 05-30-2019 Fecal Occult Blood Fecal Occult Bloo d [facility] Start: 05-30-2019 Screening for malign ant neoplasm of colon [facility] Start: 05-30-2019 Sigmoidoscopy Sigmoidoscopy [facility] Start: 2009 Lipid 1996 panel - Serum or Plasma Lipid Screening [facility] Start: 2009 Lipid panel Lipid Screening [facility] Start: 1993 Hepatitis B Vaccine (1 of 3 - 19+ 3-dose series) Hepatitis B Vaccine (1 of 3 - 19+ 3-dose series) [facility] Start: 1993 Urine microalbumin profile DTaP,Tdap,Td Vaccine (1 - Tdap) [facility] Start: 1992 Anxiety Screening Anxiety Screening [facility] Start: 1992 Depression Screening Depression Scre ening [facility] Start: 1992 Hepatitis C Screening Hepatitis C [facility] Start: 1992 Hepatitis C screening Hepatitis C [facility] Start: 1992 HIV Screening HIV Screening [facility] Start: 1992 HIV screening HIV Screening [facility] Start: 1974 Covid-19 Vaccine (#1) Covid-19 Vacci ne (#1) [facility] Start: 1974 Hepatitis B Vaccine (1 of 3 - 3-dose series) Hepatitis B Vaccine (1 of 3 - 3-dose series) [facility] Adenosine monophosphate.cyclic [Moles/volume] in Serum or Plasma [facility] Comprehensive metabo lic 2000 panel - Serum or Plasma [facility] CT Abdomen and Pelvi s W contrast IV [facility] End: 01-27-2025 CT Pelvis WO contrast CT PELVIS WO IVCON Radiology Routine Left groin pain 1 Occurrences starting 12/29/2023 until 01/27/2025 [facility] Work Phone: Comment on above: 1 Occurrences starti ng 12/29/2023 until 01/27/2025 Rheumatoid factor [Units/volume] in Serum or Plasma [facility] Immunizations Immunization Date Immunization Notes Care Provider Fa cility 07-23-2020 COVID-19 Vaccine Pfizer - Documentation Purposes Only [facility] Other [employer] Other 07-02-2020 COVID-19 Vaccine Pfizer - Documentation Purposes Only [facility] Other [employer] Other NEGATED: Highlighted row has not occurred!04-06-2021 influenza, seasonal, injectable Patient Objection [facility] Other [facility] Payers Date Payer Category Payer Unknown [employer]MO [employer] PPO [id number] 2019-Present [phone] [address] [place] [address] PPO [id number] 1974 Unknown [id number] 1974 Unknown [id number] 1974 Unknown [id number] 1974 Unknown [id number] 1959 Self-pay 1959 Self-pay [id number] 1959 Unknown [id number] Private Health Insurance [facility] Insurance Co [id number] Unknown [id number] Unknown [id number] Unknown [id number] Unknown [id number] Social History Date Type Detail Facility Start: 12-04-2020 End: 10-21-2023 Tobacco smoking status TNIS Never smoked tobacco (finding) [facility] Start: 1975 Sex Assigned At Male F [facility] Start: 04-17-2020 End: 11-25-2023 Sex Assigned At [facility] Tobacco smoking stat us TNIS Tobacco smoking consumption unknown [facility] Start: 04-17-2020 End: 11-25-2023 History of Social function [facility] National Score (1-10 0), lower number is lower risk Not on file [facility] Start: 1975 Sex Assigned At Not on file [facility] Start: 04-17-2020 Sexual orientation Heterosexual (fin ding) [facility] Start: 03-18-2020 End: 04-17-2020 Exposure to SARS-CoV-2 (event) Not sure [facility] Start: 10-21-2023 Tobacco use and exposure Smokeless tobacco non-user [facility] Start: 04-02-2024 End: 04-02-2024 Sex Male (finding) [facility] Medical Equipment Procedure Code Equipment Code Equipment Origin al Text Equipment Identifier Dates Med Dextile Lt 1 3cm X 9cm (5.1' X 3.5'') - [id number] Start: 12-05-2023 Clinical Notes 04-17-2020 to 12-29-2023 Soham Leonard DO - 12/29/2023 2:51 PM Lisa Crawford PA-C - 12/22/2023 8:08 AM Lizeth Rice MD - 12/21/2023 11:39 AM EDTTelephone Encounter - Aretha Donato RN - 12/07/2023 8:52 AM EDT Note Date & Type Note Facility 12-29-2023 Note HNO ID: [id number] Author: SOHAM LEONARD DO Service: ? Author Type: Physician Type: Progress Notes Filed: 12/29/2023 14:57 Note Text: SERVICE DATE: 12/29/2023 SERVICE TIME: 2:30 PM SERVICE: General Surgery SUBJECTIVES: Here for repeat exam. No bulge sensation. Still with achy tenderness in the left groin as before the surgical repair. At times he is doing well without pain. But past Tuesday after a short car drive, he developed sharp pain in the left groin and lasts 2-3 days. Today he is doing well, min discomfort. OBJECTIVES: There were no vitals taken for this visit. , There is no height or weight on file to calculate BMI. GENERAL: Healthy, alert, no distress, cooperative GENITALIA MALE: well healed scars from surg; no palpable recurrent inguinal hernia in the left. The sensitive examination was discussed with the Patient or Patient's Authorized Duct Layer. As applicable, any other physician, advance practice provider, medical student, or other health professional student that will be observing or involved in the sensitive examination for educational or training purposes was discussed with the Patient or Authorized Duct Layer. The Patient or Authorized Duct Layer has agreed to proceed with the sensitive examination. (Sensitive examination includes inspection and/or palpation of the breasts, pelvis, prostate and anorectal regions) Assessment ASSESSMENT: S/p lap LIH repair with mesh POD#24 Persistent pain - postop vs neuralgia; history of left orchiectomy ? Scarring No signs of recurrence or persistence of LIH PLAN: Trial of topical Voltaren cream CT pelvis if continues to have recurrent symptoms in [address] is neg, then probably neuralgia - nerve block vs open exploration and neurectomy may be beneficial. SIGNATURE: Park Leonard DO PATIENT NAME: Rehan Monet DATE: December 29, 2023 TIME: 2:51 PM PAGER: [facility] 12-29-2023 History of Presen t illness Narrative SERVICE DATE: 12/29/2023 SERVICE TIME: 2:30 PM SERVICE: General Surgery SUBJECTIVES: Here for repeat exam. No bulge sensation. Still with achy tenderness in the left groin as before the surgical repair. At times he is doing well without pain. But past Tuesday after a short car drive, he developed sharp pain in the left groin and lasts 2-3 days. Today he is doing well, min discomfort. OBJECTIVES: There were no vitals taken for this visit. , There is no height or weight on file to calculate BMI. GENERAL: Healthy, alert, no distress, cooperative GENITALIA MALE: well healed scars from surg; no palpable recurrent inguinal hernia in the left. The sensitive examination was discussed with the Patient or Patient's Authorized Duct Layer. As applicable, any other physician, advance practice provider, medical student, or other health professional student that will be observing or involved in the sensitive examination for educational or training purposes was discussed with the Patient or Authorized Duct Layer. The Patient or Authorized Duct Layer has agreed to proceed with the sensitive examination. (Sensitive examination includes inspection and/or palpation of the breasts, pelvis, prostate and anorectal regions) Assessment ASSESSMENT: S/p lap LIH repair with mesh POD#24 Persistent pain - postop vs neuralgia; history of left orchiectomy ? Scarring No signs of recurrence or persistence of LIH PLAN: Trial of topical Voltaren cream CT pelvis if continues to have recurrent symptoms in [address] is neg, then probably neuralgia - nerve block vs open exploration and neurectomy may be beneficial. SIGNATURE: Park Leonard DO PATIENT NAME: Rehan Monet DATE: December 29, 2023 TIME: 2:51 PM PAGER: documented in this encounter [facility] 12-22-2023 Note HNO ID: [id number] Author: LISA MENDOZA PA-C Service: ? Author Type: Physician Shaft Mechanic Type: Progress Notes Filed: 12/22/2023 08:17 Note Text: SERVICE DATE: 12/22/2023 SERVICE TIME: 8:09 AM SERVICE: General Surgery SUBJECTIVES: Patient here for f/u after laparoscopic LIH repair. Patient has no complaints. OBJECTIVES: There were no vitals taken for this visit. , There is no height or weight on file to calculate BMI. GENERAL: Healthy, alert, no distress, cooperative, Smiling SKIN: Skin color, texture, turgor normal. No rashes or lesions. HEAD/SINUSES: No significant findings ABDOMEN: Abdomen soft, non-tender, No recurrence LIH upon standing and coughing. WOUND: Clean, dry and intact The sensitive examination was discussed with the Patient or Patient's Authorized Duct Layer. As applicable, any other physician, advance practice provider, medical student, or other health professional student that will be observing or involved in the sensitive examination for educational or training purposes was discussed with the Patient or Authorized Duct Layer. The Patient or Authorized Duct Layer has agreed to proceed with the sensitive examination. (Sensitive examination includes inspection and/or palpation of the breasts, pelvis, prostate and anorectal regions) Kathleen Buchanan LPN, stoneworker Assessment ASSESSMENT: POD 17 s/p laparoscopic LIH repair PLAN: Discussed lifting restrictions No submerging until 4 post op RTO prn SIGNATURE: Lisa Mendoza PA-C PATIENT NAME: Rehan Monet DATE: December 22, 2023 TIME: 8:09 AM PAGER: [facility] 12-22-2023 History of Presen t illness Narrative SERVICE DATE: 12/22/2023 SERVICE TIME: 8:09 AM SERVICE: General Surgery SUBJECTIVES: Patient here for f/u after laparoscopic LIH repair. Patient has no complaints. OBJECTIVES: There were no vitals taken for this visit. , There is no height or weight on file to calculate BMI. GENERAL: Healthy, alert, no distress, cooperative, Smiling SKIN: Skin color, texture, turgor normal. No rashes or lesions. HEAD/SINUSES: No significant findings ABDOMEN: Abdomen soft, non-tender, No recurrence LIH upon standing and coughing. WOUND: Clean, dry and intact The sensitive examination was discussed with the Patient or Patient's Authorized Duct Layer. As applicable, any other physician, advance practice provider, medical student, or other health professional student that will be observing or involved in the sensitive examination for educational or training purposes was discussed with the Patient or Authorized Duct Layer. The Patient or Authorized Duct Layer has agreed to proceed with the sensitive examination. (Sensitive examination includes inspection and/or palpation of the breasts, pelvis, prostate and anorectal regions) Kathleen Buchanan LPN, stoneworker Assessment ASSESSMENT: POD 17 s/p laparoscopic LIH repair PLAN: Discussed lifting restrictions No submerging until 4 post op RTO prn SIGNATURE: Lisa Mendoza PA-C PATIENT NAME: Rehan Monet DATE: December 22, 2023 TIME: 8:09 AM PAGER: documented in this encounter [facility] 12-21-2023 Note HNO ID: [id number] Author: LIZETH WONG MD Service: ? Author Type: Physician Type: Progress Notes Filed: 01/12/2024 13:01 Note Text: Rheumatology FOLLOW UP VISIT Referring Provider: Date of Service: 12/21/2023 Gender: male Ethnicity: White Age: [age] year old Chief Complaint: Gout Last Rheumatology visit: 10/21/2023 (with Lisette Frazier) I have communicated my name and active licensure. The patient's identity and physical location were verified at the time of this visit. Either the patient or their legal patient services representative has been informed of the risks and benefits of -- and alternatives to -- treatment through a remote evaluation and consents to proceed with the evaluation remotely. Rehan Monet is a 48 year old White male who presents on 12/21/2023 for virtual visit for follow-up of Gout. PAIN EVALUATION No data found in the last 1 encounters. Impression Diagnoses: (M1A.9XX0) Chronic gout involving toe without tophus, unspecified cause, unspecified laterality (primary encounter diagnosis) (T50.4X5A) Allopurinol adverse reaction, initial encounter A 48 y/o M patient with PMHX of IVETH (non-compliant with CPAP), gout who presents for further evaluation. The patient reported that his first episode was 6 years ago in his right ankle, it got swollen and red, was unable to walk on it, and though he had broke it, he used Ice and prednisone and it took care of it back then. Since then he was educated about gout but elected not to be started on urate lowering therapy medications. Reported that uric acid might have been at 11 at that time. He has on average 6-7 episodes annually that he manages mainly with ibuprofen/prednisone. He has been also cutting down on his alcohol and sticking to a diet to minimize his flares but it doesn't seem to be helping for him. On exam it was noted that his left MTP was Red, mildly swollen and tenderness was noted as well. Based off the number of the flares the patient is having and typical description of gout, the patient qualifies for urate lowering therapy along with anti-inflammatory prophylaxis for at least 3-6 months per ACR guidelines. First line drug is allopurinol, which was initiated at 100 mg and decreased uric acid from 9.7 to 7.1 with target being <6 in his case. However he had skin rash reaction described as hives for which it was discussed and he agreed that he will switch to febuxostat. Side effects were discussed with the patient alongside including but not limited to skin reactions, elevated LFTs and cardiovascular events and he agreed to the medication. Plan 1. Febuxostat 40 mg po daily 2. Stop allopurinol 3. Prednisone taper (20 x3 days, 15 x3 days, 10 x3 days,5 x3 days) as needed for flares 4. CBC, CMP, Uric acid monthly x 3 months No follow-ups on file. I spent a total of 30 minutes on the date of the service which included preparing to see the patient, [id number] patient care, completing clinical documentation, obtaining and/or reviewing separately obtained history, performing a medically appropriate examination, counseling and educating the patient/family/caregiver, and ordering medications, tests, or procedures. Lisette Frazier MD Rheumatology Attending Staff Note: I reviewed the history and physical obtained and documented by the resident/fellow and I personally participated in the jolley components of the history and exam. The following comments revise or confirm relevant jolley elements of the resident/fellow's note: History: as given Physical Exam: as above I discussed the case and the plans with the resident/fellow with the following comments: agree with approach, with emphasis as below: 48 year old man with gout who had what appears to be an allergic reaction to allopurinol (not AHS). Recommend stopping allopurinol and starting febuxostat. We discussed the potential side effects of this medication. Will also treat current gout flare with prednisone. Agree with labs and remainder of plan as above I spent a total of 30 minutes on the date of the service which included preparing to see the patient, [id number] patient care, completing clinical documentation, obtaining and/or reviewing separately obtained history, performing a medically appropriate examination, counseling and educating the patient/family/caregiver, and ordering medications, tests, or procedures. Lizeth Wong MD Rheumatology Staff cc: PCP: Kirby Aldrich ([facility]) [address] [place] [address] Subjective HISTORY OF PRESENT ILLNESS A 48 y/o M patient with PMHX of IVETH (non-compliant with CPAP), gout who presents for further evaluation. The patient reported that his first episode was 6 years ago in his right ankle, it got swollen and red, was unable to walk on it, and though he had broke it, he used I (more content not included)... [facility] 12-21-2023 History of Presen t illness Narrative Images from the original note were not included. Rheumatology FOLLOW UP VISIT Referring Provider: Date of Service: 12/21/2023 Gender: male Ethnicity: White Age: [age] year old Chief Complaint: Gout Last Rheumatology visit: 10/21/2023 (with Lisette Frazier) I have communicated my name and active licensure. The patient's identity and physical location were verified at the time of this visit. Either the patient or their legal patient services representative has been informed of the risks and benefits of -- and alternatives to -- treatment through a remote evaluation and consents to proceed with the evaluation remotely. Rehan Monet is a 48 year old White male who presents on 12/21/2023 for virtual visit for follow-up of Gout. PAIN EVALUATION No data found in the last 1 encounters. Impression Diagnoses: (M1A.9XX0) Chronic gout involving toe without tophus, unspecified cause, unspecified laterality (primary encounter diagnosis) (T50.4X5A) Allopurinol adverse reaction, initial encounter A 48 y/o M patient with PMHX of IVETH (non-compliant with CPAP), gout who presents for further evaluation. The patient reported that his first episode was 6 years ago in his right ankle, it got swollen and red, was unable to walk on it, and though he had broke it, he used Ice and prednisone and it took care of it back then. Since then he was educated about gout but elected not to be started on urate lowering therapy medications. Reported that uric acid might have been at 11 at that time. He has on average 6-7 episodes annually that he manages mainly with ibuprofen/prednisone. He has been also cutting down on his alcohol and sticking to a diet to minimize his flares but it doesn't seem to be helping for him. On exam it was noted that his left MTP was Red, mildly swollen and tenderness was noted as well. Based off the number of the flares the patient is having and typical description of gout, the patient qualifies for urate lowering therapy along with anti-inflammatory prophylaxis for at least 3-6 months per ACR guidelines. First line drug is allopurinol, which was initiated at 100 mg and decreased uric acid from 9.7 to 7.1 with target being <6 in his case. However he had skin rash reaction described as hives for which it was discussed and he agreed that he will switch to febuxostat. Side effects were discussed with the patient alongside including but not limited to skin reactions, elevated LFTs and cardiovascular events and he agreed to the medication. Plan 1. Febuxostat 40 mg po daily 2. Stop allopurinol 3. Prednisone taper (20 x3 days, 15 x3 days, 10 x3 days,5 x3 days) as needed for flares 4. CBC, CMP, Uric acid monthly x 3 months No follow-ups on file. I spent a total of 30 minutes on the date of the service which included preparing to see the patient, [id number] patient care, completing clinical documentation, obtaining and/or reviewing separately obtained history, performing a medically appropriate examination, counseling and educating the patient/family/caregiver, and ordering medications, tests, or procedures. Lisette Frazier MD Rheumatology Attending Staff Note: I reviewed the history and physical obtained and documented by the resident/fellow and I personally participated in the jolley components of the history and exam. The following comments revise or confirm relevant jolley elements of the resident/fellow's note: History: as given Physical Exam: as above I discussed the case and the plans with the resident/fellow with the following comments: agree with approach, with emphasis as below: 48 year old man with gout who had what appears to be an allergic reaction to allopurinol (not AHS). Recommend stopping allopurinol and starting febuxostat. We discussed the potential side effects of this medication. Will also treat current gout flare with prednisone. Agree with labs and remainder of plan as above I spent a total of 30 minutes on the date of the service which included preparing to see the patient, [id number] patient care, completing clinical documentation, obtaining and/or reviewing separately obtained history, performing a medically appropriate examination, counseling and educating the patient/family/caregiver, and ordering medications, tests, or procedures. Lizeth Wong MD Rheumatology Staff cc: PCP: Kirby Aldrich ([facility]) [address] [place] [address] Subjective HISTORY OF PRESENT ILLNESS A 48 y/o M patient with PMHX of IVETH (non-compliant with CPAP), gout who presents for further evaluation. The patient reported that his first episode was 6 years ago in his right ankle, it got swollen and red, was unable to walk on it, and though he had broke it, he used Ice and prednisone and it took care of it back then. Since then he was educated about gout but elected not to be started on urate lowering therapy medications. Reported that uric acid might have been at 11 at that time. He has on average 6-7 episodes annually that he manages mainly with ibuprofen/prednisone. Most recent episode was about 10 days ago and involved the big toe of his left foot which is a usual place for his flares. He notices some knee pain but no swelling or redness similar to the appearance in the feet. The pain fluctuates between 10/10 at times and 3/10 He is usually doing great between episodes. He reports morning stiffness in both feet that resolved usually within 1 hour. Reports he is stick to a diet low in meat and high fructose corn syrup, he also cut down on his alcohol Diet habits mostly: Breakfast, smoothie, oat meal Lunch , salad, minimize dressing Dinner Try to keep an eye on that too PMHX: as mentioned PSHX: Torn labrum left shoulder 20 yrs ago, Broken right thumb SH: No smoking Alcohol, twice monthly, 2 drinks vodka, wine FH: Brother with gout Interval history: - The patient reached out to me a few weeks ago as he had hives reaction and was instructed to stop his allopurinol - He had a flare last week for which he took his prednisone taper and re-started the allopurinol, since then had no reaction - Uric acid 7.1, Cr 1.28 - Doing well know, recovered well from the flare - No other complaints - Currently on allopurnil 100 mg daily and colchicine 0.6 mg daily - Instructed to stop allopurinol and will start febuxostat and repeat labs again today and Q monthly x3 months - Will give him rescue prednisone as needed for flares. Disease History Gout History RISK FACTORS No diuretic use No use of low dose aspirin No use of cyclosporine Family history: Brother has gout, diet No chronic kidney disease No congestive heart failure No coronary artery disease Obstructive sleep apnea No history of kidney stones No metabolic disease No solid organ transplant Has not had a synovial fluid test Gout Flare History Alcohol Use: Not on file Patient-Entered Data PROMIS Assessments 10/16/2023 PROMIS Global Health - (T-Scores - the mean of general population = 50. Five points is a clinically meaningful difference.) Physical T-Score 44.9 Mental T-Score 53.3 10/16/2023 12/21/2023 PROMIS CAT Pain Interference PROMIS Pain Interference T-Score (range: 10 - 90) 68 (moderate) 56 (mild) PROMIS Pain Interference Percentile 4 27 PROMIS Adult Short Form-Global Health Score (Mental) 53.3 (Very Good) 10/16/2023 12/21/2023 PROMIS CAT Fatigue PROMIS Fatigue T-Score 39 (within normal limits) 36 (within normal limits) PROMIS Fatigue Percentile 86 92 10/16/2023 12/21/2023 PROMIS PHYSICAL FUNCTION T-SCORE PROMIS Physical Function T-Score 61 (within normal limits) 54 (within normal limits) Physical Function Percentile 86 66 PHQ-9 0 - 4: Minimal Depression 5 - 9: Mild Depression 10 - 14: Moderate Depression 15 - 19: Moderately Severe Depression 20 - 27: Severe Depression 10/16/2023 PHQ-9 PHQ-2 Score 0 Objective Treatment History Relevant Previous Investigations Uric Acid Uric Acid Latest Ref Rng & Units 4.0 - 8.1 mg/dL 11/23/2023 7.1 10/21/2023 9.7 Latest Ref Rng & Units 10/21/2023 11/23/2023 CBC WBC 3.70 - 11.00 k/uL 7.66 6.68 Hemoglobin 13.0 - 17.0 g/dL 15.1 14.9 Hematocrit 39.0 - 51.0 % 44.7 42.2 Platelet Count 150 - 400 k/uL 291 258 Abs Neut (ANC) 1.45 - 7.50 k/uL 4.03 3.89 Abs Lymph 1.00 - 4.00 k/uL 2.49 1.93 Latest Ref Rng & Units 10/21/2023 11/23/2023 CMP Sodium 136 - 144 mmol/L 137 138 Potassium 3.7 - 5.1 mmol/L 4.2 4.3 Chloride 98 - 107 mmol/L 100 104 CO2 22 - 30 mmol/L 25 30 Glucose 74 - 99 mg/dL 93 96 BUN 9 - 24 mg/dL 19 16 Creatinine 0.73 - 1.22 mg/dL 1.30 1.28 Calcium 8.5 - 10.2 mg/dL 9.1 8.9 AST 14 - 40 U/L 27 21 ALT 10 - 54 U/L 27 24 Alkaline Phosphatase 38 - 113 U/L 65 54 Latest Ref Rng & Units 10/21/2023 ESR, WSR WSR 0 - 15 mm/hr 2 Latest Ref Rng & Units 10/21/2023 CRP CRP <0.9 mg/dL <0.3 Imaging / Studies Last CT Foot - Impression Only No resulted procedures found. Last CT Hand - Impression Only No resulted procedures found. Review of Systems Review of Systems CONSTITUTION: Negative for: Fever and Recent weight change HEENT: Negative for: Nosebleeds, Mouth sores, Trouble swallowing and Dry mouth RESPIRATORY: Negative for: Cough, Shortness of breath and Pain with breathing GASTROINTESTINAL: Negative for: Melena, Diarrhea, Heartburn and Abdominal pain MUSCULOSKELETAL: Negative for: Arthralgias, Myalgias, Muscle weakness, Joint swelling and Morning Joint Stiffness NEUROLOGICAL: Negative for: Headaches, Numbness and Memory loss SKIN: Negative for: Rash, Skin changes, Hair loss and Nail changes EYES: Negative for: Eye pain, Eye redness, Eye dryness and visual disturbance CARDIOVASCULAR: Negative for: Chest pain and Leg swelling GENITOURINARY: Negative for: Dysuria and Hematuria HEMATOLOGIC/LYMPHATIC: Negative for: Swollen glands All other reviewed and negative other than HPI. Problem List ACTIVE PROBLEM LIST Ac Joint Pain Instability of Left Shoulder Joint Chronic Gout Involving Toe Without Tophus Sleep Apnea Gout Pain of Toe of Left Foot Allopurinol Adverse Reaction, Initial Encounter Past Medical History PAST MEDICAL HISTORY Diagnosis Date Gout NEGATIVE HISTORY OF 11/23/2023 NO pn,tb,dm,ca, heart dis Sleep apnea Past Surgical History PAST SURGICAL HISTORY Procedure Laterality Date FINGER SURGERY HX Right Right Thumb SHOULDER SURGERY HX Left TESTICLE SURGERY HX Left TOOTH EXTRACTION [place] Family History FAMILY HISTORY Problem Relation Age of Onset Diabetes Father Gout Brother Social History Social History Tobacco Use Smoking status: Never Smokeless tobacco: Never Medications Current Outpatient Medications Medication Sig colchicine 0.6 mg capsule Take 1 capsule by mouth once daily. No current facility-administered medications for this visit. Physical Exam Physical Exam: done by video General: Well appearing, well nourished, sitting in chair in no distress. Normal affect. ??Alert and oriented. Skin: No rash on face, neck or hands. Hair: Normal texture and distribution. No evidence of alopecia or scarring. ?? Head: Normocephalic, atraumatic. Eyes: Conjunctivae clear, sclerae non-icteric. ??EOMI Pulm: Breathing comfortably. Neurologic: Cranial nerves II-XII grossly intact. Psychiatric: Good judgment and insight, normal mood and affect. documented in this encounter [facility] 12-07-2023 Telephone encounter Note Called patient and received VM as identified by no otr owner operator. Informed if any questions or concerns to please call the office or may MyChart. If no questions or concerns then we will see at scheduled post-op appt. Informed if any questions or concerns arise before then to please call. Office number left to contact. [facility] Work Phone: 12-07-2023 Miscellaneous Notes Called patient and received VM as identified by no otr owner operator. Informed if any questions or concerns to please call the office or may MyChart. If no questions or concerns then we will see at scheduled post-op appt. Informed if any questions or concerns arise before then to please call. Office number left to contact. documented in this encounter [facility] 12-05-2023 Note HNO ID: [id number] Author: CARMEN BALLARD APRN.PREVENTIVE MEDICINE OFFICER Service: ? Author Type: Nurse Strickler Attendant Type: Anesthesia Procedure Notes Filed: 12/05/2023 09:20 Note Text: ANESTHESIOLOGY PROCEDURE NOTE Airway General Information Procedure Start Time/Medication Administration: 12/05/2023 7:40 AM Procedure End Time: 12/05/2023 7:40 AM Patient location during procedure: OR Patient identity confirmed: arm band and patient Staffing Anesthesiologist: Joe Mccormack MD PREVENTIVE MEDICINE OFFICER: Carmen Ballard APRN.PREVENTIVE MEDICINE OFFICER Performed by: PREVENTIVE MEDICINE OFFICER Indications and Patient Condition Indications for airway management: anesthesia Preoxygenated: yes anesthesia circuit Method: sleep Difficult Mask: No Final Airway Details Final airway type: endotracheal airway Final Endotracheal Airway: ETT Cuffed: yes Successful intubation technique: direct laryngoscopy Devices used: intubating stylet Blade: Ricky Blade size: #4 ETT size (mm): 7.5 Measurement (cm): 23 Placement verified by: capnometry Cormack-Lehane Classification: grade IIa - partial view of glottis Number of attempts at approach: 1 Airway not difficult SIGNATURE: Carmen Ballard APRN.CRNA PATIENT NAME: Rehan Monet DATE: December 05, 2023 TIME: 7:50 AM CSN: [id number] [facility] 11-25-2023 Instructions Ximena Gonzales APRN.CNP - 11/25/2023 7:53 AM EDT PATIENT PREOPERATIVE INSTRUCTIONS Your Surgeon has scheduled you for your procedure at this surgery center: [facility]: [phone] --[address] [address]. Please read below carefully for your personalized instructions. Dietary Restrictions: - No solid food after midnight. - You may have 12 ounces of clear liquids (water, clear juices such as apple juice or gatorade, carbonated beverages, clear tea, black coffee, jello) until 2 hours before scheduled arrival at facility. Medications: Unless instructed differently below, stay on all of your medications until your surgery. If you take any medications for erectile dysfunction-Cialis (Tadalafil), Levitra, Staxyn (Vardenafil) Viagra (Sildenenafil please do not take these for 48 hours before surgery. If you start any new medications after today's visit, please contact the surgeon's office. Blood Thinning Medications: - Stop NSAIDS (Ibuprofen, Advil, Aleve, Motrin, Celebrex, Mobic, etc.) 7 days before surgery, as directed by your surgeon. - Stop Aspirin 7 days before surgery, as directed by your surgeon. - Stop Vitamin E, ALL multi-vitamins, herbals and dietary supplements 7 days before surgery. - You may take Tylenol (Acetaminophen) or any of your pain medications that do not contain aspirin or NSAIDS as needed. Important Reminders: - If you are prescribed inhalers for breathing, continue using them. - Candy, mints, and tobacco products are NOT permitted the morning of surgery. - Hearing aids, dentures and glasses may be worn the morning of surgery. - NO jewelry, body piercings, makeup, hairpins or contacts are to be worn the day of surgery. If you develop symptoms such as a fever, cold, or flu, or have other changes to your health within TWO DAYS of scheduled surgery or the morning of surgery, please contact the surgery center above. Personal Belongings: -Please have photo ID and insurance cards. -If you do not have a copy of advance directives on file with us, please bring a copy with you on the day of surgery. - Leave ALL valuables and money at home or with family members. For Outpatient Procedures: - YOU MUST HAVE A RESPONSIBLE HOG DROPPER TAKE YOU HOME. A FOREST FIRE PREVENTION MANAGER OR SPECIMEN TECHNICIAN CANNOT BE MADE A RESPONSIBLE HOG DROPPER. - We recommend that a responsible person stays with you overnight to take care of you. - You cannot stay in a hotel alone after outpatient surgery. You will not be permitted to have your surgery, if you do not have someone to take care of you. Arrival Time for Surgery: - The Surgery Center or hospital where you are having surgery will call the afternoon before surgery (or Tuesday for Tuesday surgery) with a scheduled arrival time. - If you have not heard by 4 pm, please contact the surgery center above. Please be aware that emergency situations arise, which may delay or change your surgical time. If this happens, we will notify you as soon as possible and regret any inconvenience. If you already have an Advance Directive, please fax a copy to [phone] or email to for it to be added to your chart. If you do not have an Advance Directive, you can find the appropriate form and more information at [email or web address]. We recommend that you complete the Advance Directive form found on the website and bring it with you the day of your surgery. It can be witnessed and scanned into your chart that day. Ximena Gonzales APRN.CNP documented in this encounter [facility] 11-25-2023 Note HNO ID: [id number] Author: MIREYA OKEEFE MA Service: ? Author Type: Block Making Machine Operator Type: Progress Notes Filed: 11/25/2023 08:00 Note Text: [facility] 11-25-2023 History of Presen t illness Narrative documented in this encounter [facility] 11-25-2023 History and physical note HISTORY AND PHYSICAL EXAMINATION SERVICE DATE: 11/25/2023 SERVICE TIME: 7:45 AM PRIMARY CARE PHYSICIAN: Kirby Aldrich DO REASON FOR VISIT: Rehan Monet is a 48 year old male who is scheduled for Left - LAPAROSCOPIC HERNIORRHAPHY, INGUINAL INITIAL at the request of Dr. Soham Leonard for consultation. My final recommendation will be communicated back to the requesting physician by way of shared medical record or letter. Assessment Patient has the following medical conditions which may affect nahed-operative course: Sleep apnea Assessment: Does not use CPAP Nichole Activity Status Index: METS: Do moderate work around the house, such as vacuuming, sweeping floors, or carrying in groceries (3.50 METs) Climb a flight of stairs or walk up a hill (5.50 METs) DASI Score: 9 Patient denies any chest pain or undue shortness of breath with the above physical activity. STOP-Bang Score: STOP-Bang Score: 0 [id number] Score: Age: <65 Sex: male CHF history: No Hypertension history: No Stroke/TIA/thromboembolism history: No Vascular disease history: No Diabetes history: No [id number] Score: 0 ANESTHESIA FINDINGS: Intubation History: No history of difficult intubation Significant Anesthesia Considerations: none Airway History: No history of difficult airway I - PHYSICAL EVALUATION AIRWAY Patient intubated: No. Tracheostomy tube not present Mallampati: I. TM distance: >3 FB. Neck ROM: full ROM without neurological symptoms. Mouth opening: adequate. Short neck: no. Thick neck: no Lip Bite Test: II Microretrognathia/Micronagthia/R ecessed Chin: No DENTAL Dental findings: teeth intact. II - ANESTHESIA PLAN Beta Jim Monitoring Plan Post Procedure Analgesic Plan Prepared for surgery: This patient is optimally prepared for surgery. CONSULTS: Patient does not require consults for optimization at this time. The Following Tests/Procedures Have Been Initiated: Labs not indicated per [facility] protocol, EKG not indicated per [facility] protocol Planned Anesthetic: Per anesthesia choice Subjective CHIEF COMPLAINT: Left inguinal hernia HPI: 48 year old year old presents to [facility] for evaluation. Patient has had left groin pain > 1 year. Found to have hernia. Has elected for surgical intervention. PAST MEDICAL HISTORY No date: Gout 11/23/2023: NEGATIVE HISTORY OF Comment: NO pn,tb,dm,ca, heart dis No date: Sleep apnea PAST SURGICAL HISTORY No date: FINGER SURGERY HX; Right Comment: Right Thumb No date: SHOULDER SURGERY HX; Left No date: TESTICLE SURGERY HX; Left No date: TOOTH EXTRACTION Comment: [place] FAMILY HISTORY Problem Relation Age of Onset Diabetes Father Gout Brother SOCIAL HISTORY: Social History Tobacco Use Smoking status: Never Smokeless tobacco: Never Prior to Admission medications as of 11/25/23 0750 Medication Sig Last Dose Taking allopurinol (ZYLOPRIM) 300 mg tablet Take 1 tablet by mouth once daily. Yes predniSONE (DELTASONE) 5 mg tablet Take 4 tablets by mouth once daily for 3 days, THEN 3 tablets once daily for 3 days, THEN 2 tablets once daily for 3 days, THEN 1 tablet once daily for 3 days. Taking Yes colchicine 0.6 mg capsule Take 1 capsule by mouth once daily. Taking Yes allopurinol (ZYLOPRIM) 100 mg tablet Take 2 tablets by mouth once daily for 14 days. No medication comments found. ALLERGIES No Known Allergies Covid Immunization Dates Overdue - Covid-19 Vaccine ( season) Overdue since 11/26/2022 07/23/2020 Imm Admin: COVID-19 original vaccine, age 12+ yr, monovalent ([facility]) 07/02/2020 Imm Admin: COVID-19 original vaccine, age 12+ yr, monovalent ([employer]) REVIEW OF SYSTEMS: PAIN ASSESSMENT: General: No weight loss, malaise or fevers. Neuro: No history of TIA's, stroke, [employer] EX[employer] tumor, impaired sensorium, hemiplegia, paraplegia or quadraplegia. No neurological symptoms or problems. Respiratory: No history of current cough or dyspnea, or pneumonia in the past 6 weeks. No history of respiratory/pulmonary symptoms or problems. +IVETH Cardiovascular: Negative for Recent IL, Angina, Chest Pain, PVD, DVT/PE GI: Negative for Nausea, Vomiting, Abdominal pain : Negative for dysuria, incontinence, hematuria, and hesitancy Endocrine: No history of diabetes. Has not taken steroids within the past 30 days. No history of endocrinological symptoms or problems. Hematology: No history of bleeding or clotting disorder. Pt is not taking anti-coagulation or platelet medications. No history of hematological symptoms or problems. Oncology: No history of CA metastasis, chemo within 30 days, or radiotherapy within 90 days. Has not lost 10% of body wt in 6 months. No history of oncological symptoms or problems. Psych: No history of psychiatric symptoms or problems. Musculoskeletal: Negative for joint pain or swelling, back pain or muscle pain. +Gout (Left foot) Skin: Negative for lesions, rash and itching. Objective PHYSICAL EXAM: VITALS: BP 153/94 Pulse 67 Temp 97.5 Ht 5' 10 (1.78m) Wt 192 lb 12.7 oz (87.5kg) SpO2 100% BMI 27.66 kg/(m^2). General: Alert and oriented Skin: Normal color, no rash, no lesions. HEENT: EOM, pupils equal, round and reactive. Cardiovascular: Normal S1 & S2, no rubs, murmurs or gallops. No JVD. Pulse regular. Lungs: Normal breath sounds, no wheezes or crackles. Extremities: No deformity, no edema or tenderness, no joint swelling or clubbing. Neurological: Normal cognition and motor skills. Pulses: Carotid and radial pulses normal +2. Diagnostic tests reviewed for today's visit: Lab Value Units Date High Low HB 14.9 g/dL 11/23/2023 17.0 13.0 HCT 42.2 % 11/23/2023 51.0 39.0 WBC 6.68 k/uL 11/23/2023 11.00 3.70 PLT 258 k/uL 11/23/2023 400 150 NA 138 mmol/L 11/23/2023 144 136 K 4.3 mmol/L 11/23/2023 5.1 3.7 GLUC 96 mg/dL 11/23/2023 99 74 BUN 16 mg/dL 11/23/2023 24 9 CREAT 1.28 mg/dL 11/23/2023 1.22 0.73 PTSEC No results within date range. INR No results within date range. APTT No results within date range. ALT 24 U/L 11/23/2023 54 10 AST 21 U/L 11/23/2023 40 14 TBILI 0.8 mg/dL 11/23/2023 1.3 0.2 TSH No results within date range. No new labs or tests Instructions Given to Patient: Instructions located in the after visit summary. Patient given verbal and written preop instructions and voices comprehension and compliance. SIGNATURE: Ximena Gonzales APRN.CNP PATIENT NAME: Rehan Monet DATE: 11/25/2023 TIME: 7:45 AM [facility] 11-25-2023 History and physical note HISTORY AND PHYSICAL EXAMINATION SERVICE DATE: 11/25/2023 SERVICE TIME: 7:45 AM PRIMARY CARE PHYSICIAN: Kirby Aldrich DO REASON FOR VISIT: Rehan Monet is a 48 year old male who is scheduled for Left - LAPAROSCOPIC HERNIORRHAPHY, INGUINAL INITIAL at the request of Dr. Soham Leonard for consultation. My final recommendation will be communicated back to the requesting physician by way of shared medical record or letter. Assessment Patient has the following medical conditions which may affect nahed-operative course: Sleep apnea Assessment: Does not use CPAP Nichole Activity Status Index: METS: Do moderate work around the house, such as vacuuming, sweeping floors, or carrying in groceries (3.50 METs) Climb a flight of stairs or walk up a hill (5.50 METs) DASI Score: 9 Patient denies any chest pain or undue shortness of breath with the above physical activity. STOP-Bang Score: STOP-Bang Score: 0 [id number] Score: Age: <65 Sex: male CHF history: No Hypertension history: No Stroke/TIA/thromboembolism history: No Vascular disease history: No Diabetes history: No [id number] Score: 0 ANESTHESIA FINDINGS: Intubation History: No history of difficult intubation Significant Anesthesia Considerations: none Airway History: No history of difficult airway I - PHYSICAL EVALUATION AIRWAY Patient intubated: No. Tracheostomy tube not present Mallampati: I. TM distance: >3 FB. Neck ROM: full ROM without neurological symptoms. Mouth opening: adequate. Short neck: no. Thick neck: no Lip Bite Test: II Microretrognathia/Micronagthia/R ecessed Chin: No DENTAL Dental findings: teeth intact. II - ANESTHESIA PLAN Beta Jim Monitoring Plan Post Procedure Analgesic Plan Prepared for surgery: This patient is optimally prepared for surgery. CONSULTS: Patient does not require consults for optimization at this time. The Following Tests/Procedures Have Been Initiated: Labs not indicated per [facility] protocol, EKG not indicated per [facility] protocol Planned Anesthetic: Per anesthesia choice Subjective CHIEF COMPLAINT: Left inguinal hernia HPI: 48 year old year old presents to [facility] for evaluation. Patient has had left groin pain > 1 year. Found to have hernia. Has elected for surgical intervention. PAST MEDICAL HISTORY No date: Gout 11/23/2023: NEGATIVE HISTORY OF Comment: NO pn,tb,dm,ca, heart dis No date: Sleep apnea PAST SURGICAL HISTORY No date: FINGER SURGERY HX; Right Comment: Right Thumb No date: SHOULDER SURGERY HX; Left No date: TESTICLE SURGERY HX; Left No date: TOOTH EXTRACTION Comment: [place] FAMILY HISTORY Problem Relation Age of Onset Diabetes Father Gout Brother SOCIAL HISTORY: Social History Tobacco Use Smoking status: Never Smokeless tobacco: Never Prior to Admission medications as of 11/25/23 0750 Medication Sig Last Dose Taking allopurinol (ZYLOPRIM) 300 mg tablet Take 1 tablet by mouth once daily. Yes predniSONE (DELTASONE) 5 mg tablet Take 4 tablets by mouth once daily for 3 days, THEN 3 tablets once daily for 3 days, THEN 2 tablets once daily for 3 days, THEN 1 tablet once daily for 3 days. Taking Yes colchicine 0.6 mg capsule Take 1 capsule by mouth once daily. Taking Yes allopurinol (ZYLOPRIM) 100 mg tablet Take 2 tablets by mouth once daily for 14 days. No medication comments found. ALLERGIES No Known Allergies Covid Immunization Dates Overdue - Covid-19 Vaccine ( season) Overdue since 11/26/2022 07/23/2020 Imm Admin: COVID-19 original vaccine, age 12+ yr, monovalent ([employer] [facility]) 07/02/2020 Imm Admin: COVID-19 original vaccine, age 12+ yr, monovalent ([employer] [facility]) REVIEW OF SYSTEMS: PAIN ASSESSMENT: General: No weight loss, malaise or fevers. Neuro: No history of TIA's, stroke, [employer]ING EXECUTIVE tumor, impaired sensorium, hemiplegia, paraplegia or quadraplegia. No neurological symptoms or problems. Respiratory: No history of current cough or dyspnea, or pneumonia in the past 6 weeks. No history of respiratory/pulmonary symptoms or problems. +IVTEH Cardiovascular: Negative for Recent IL, Angina, Chest Pain, PVD, DVT/PE GI: Negative for Nausea, Vomiting, Abdominal pain : Negative for dysuria, incontinence, hematuria, and hesitancy Endocrine: No history of diabetes. Has not taken steroids within the past 30 days. No history of endocrinological symptoms or problems. Hematology: No history of bleeding or clotting disorder. Pt is not taking anti-coagulation or platelet medications. No history of hematological symptoms or problems. Oncology: No history of CA metastasis, chemo within 30 days, or radiotherapy within 90 days. Has not lost 10% of body wt in 6 months. No history of oncological symptoms or problems. Psych: No history of psychiatric symptoms or problems. Musculoskeletal: Negative for joint pain or swelling, back pain or muscle pain. +Gout (Left foot) Skin: Negative for lesions, rash and itching. Objective PHYSICAL EXAM: VITALS: BP 153/94 Pulse 67 Temp 97.5 Ht 5' 10 (1.78m) Wt 192 lb 12.7 oz (87.5kg) SpO2 100% BMI 27.66 kg/(m^2). General: Alert and oriented Skin: Normal color, no rash, no lesions. HEENT: EOM, pupils equal, round and reactive. Cardiovascular: Normal S1 & S2, no rubs, murmurs or gallops. No JVD. Pulse regular. Lungs: Normal breath sounds, no wheezes or crackles. Extremities: No deformity, no edema or tenderness, no joint swelling or clubbing. Neurological: Normal cognition and motor skills. Pulses: Carotid and radial pulses normal +2. Diagnostic tests reviewed for today's visit: Lab Value Units Date High Low HB 14.9 g/dL 11/23/2023 17.0 13.0 HCT 42.2 % 11/23/2023 51.0 39.0 WBC 6.68 k/uL 11/23/2023 11.00 3.70 PLT 258 k/uL 11/23/2023 400 150 NA 138 mmol/L 11/23/2023 144 136 K 4.3 mmol/L 11/23/2023 5.1 3.7 GLUC 96 mg/dL 11/23/2023 99 74 BUN 16 mg/dL 11/23/2023 24 9 CREAT 1.28 mg/dL 11/23/2023 1.22 0.73 PTSEC No results within date range. INR No results within date range. APTT No results within date range. ALT 24 U/L 11/23/2023 54 10 AST 21 U/L 11/23/2023 40 14 TBILI 0.8 mg/dL 11/23/2023 1.3 0.2 TSH No results within date range. No new labs or tests Instructions Given to Patient: Instructions located in the after visit summary. Patient given verbal and written preop instructions and voices comprehension and compliance. SIGNATURE: Ximena Gonzales APRN.CNP PATIENT NAME: Rehan Monet DATE: 11/25/2023 TIME: 7:45 AM documented in this encounter [facility] 11-23-2023 Telephone encounter Note Tried calling [email or web address] to return my call at [phone] option 5. Thank you. [facility] Work Phone: 11-23-2023 Miscellaneous Notes Tried calling [email or web address] to return my call at [phone] option 5. Thank you. Images from the original note were not included. documented in this encounter [facility] 11-23-2023 Telephone encounter Note Images from the original note were not included. [facility] 11-23-2023 History and physical note SERVICE DATE: 11/23/2023 SERVICE TIME: 10:32 AM SERVICE: General Surgery REFERRAL PHYSICIAN: No referring provider defined for this encounter. Rehan Monet is here today at the request of No referring provider defined for this encounter. for my opinion regarding left inguinal hernia. My final recommendation will be communicated back to the requesting physician by way of shared medical record or letter. 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 Small non-tender reducible umbilical hernia PLAN: I have discussed with patient regarding lap LIH repair with mesh, possible open. Risks, benefits and alternatives were discussed. Risks including but not limited to bleeding, pain, infection, scar(s), chronic pain after surgery, repeat procedure, injuries to bladder, colon, small bowel, other intra-abd organs, mesh complication, possible recurrence of symptoms, prolong hospital/surgical stay, cardiopulmonary event, seizure, stroke, allergic reaction to administered medication and . Patient's questions were answered to his satisfaction. Patient understands and wishes to proceed with surgery. Will schedule surgery at his convenience. Travel and lifting weight limit restrictions also discussed. Patient is fully aware of these restrictions. Discussed umbilical hernia and its repair at the same time if patient wishes; he wishes to observe at this time due to no symptoms. HPI: 48 year old y/o male self referred for evaluation of left groin pain that has been present for about a year. Patient states he typically has a feeling of dull annoyance in regards to discomfort but over the last several days he has had sharp pain with activities. Patient denies any presence of a bulge. Denies any change in bowel habits. Surgical history remarkable for left testicle removed due to torsion at age 13. PAST MEDICAL HISTORY No date: Gout 11/23/2023: NEGATIVE HISTORY OF Comment: NO pn,tb,dm,ca, heart dis No date: Sleep apnea PAST SURGICAL HISTORY No date: FINGER SURGERY HX; Right Comment: Right Thumb No date: SHOULDER SURGERY HX; Left No date: TESTICLE SURGERY HX; Left No date: TOOTH EXTRACTION Comment: [place] MEDICATIONS: Current Outpatient Medications: colchicine 0.6 mg capsule, Take 1 capsule by mouth once daily., Disp: 90 capsule, Rfl: 0 allopurinol (ZYLOPRIM) 100 mg tablet, Take 1 tablet by mouth once daily., Disp: 30 tablet, Rfl: 0 ALLERGIES No Known Allergies FAMILY HISTORY Problem Relation Age of Onset Diabetes Father Gout Brother Social History Tobacco Use Smoking status: Never Smokeless tobacco: Never REVIEW OF SYSTEMS: GENERAL: No weight loss, malaise or fevers HEENT: Negative for frequent or significant headaches, No changes in hearing or vision, no nose bleeds or other nasal problems NECK: Negative for lumps, goiter, pain and significant neck swelling RESPIRATORY: Negative for cough, hemoptysis, wheezing, COPD, dyspnea or shortness of breath, + sleep apnea CARDIOVASCULAR: Negative for chest pain, leg swelling, hypertension, CHF or palpitations GI: No nausea, vomiting, or diarrhea : See HPI MUSCULOSKELETAL: + gout SKIN: Negative for lesions, rash, and itching PSYCH: Negative NEURO: No history of headaches, syncope, paralysis, seizures or tremors PHYSICAL EXAM: BP 135/83 Pulse 67 Ht 177.8 cm (5' 10 ) Wt 85.7 kg (188 lb 15 oz) BMI 27.11 kg/m Body mass index is 27.11 kg/m . GENERAL: Healthy, alert, no distress, cooperative SKIN: Skin color, texture, turgor normal. No rashes or lesions. HEAD/SINUSES: No significant findings NECK: Supple ABDOMEN: Soft, nontender and + small reducible non-tender umbilical hernia. EXTREMITIES: No ulcers NEURO: Grossly normal cognition, motor function GENITALIA MALE: + small mildly tender left inguinal hernia at the pubic tubercle, reducible; left testicle absent. Diagnostic tests reviewed for today's visit: No new labs SIGNATURE: Aretha Donato RN PATIENT NAME: Rehan Monet DATE: November 23, 2023 TIME: 10:32 AM Park Leonard DO [facility] 11-23-2023 History and physical note SERVICE DATE: 11/23/2023 SERVICE TIME: 10:32 AM SERVICE: General Surgery REFERRAL PHYSICIAN: No referring provider defined for this encounter. Rehan Monet is here today at the request of No referring provider defined for this encounter. for my opinion regarding left inguinal hernia. My final recommendation will be communicated back to the requesting physician by way of shared medical record or letter. 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 Small non-tender reducible umbilical hernia PLAN: I have discussed with patient regarding lap LIH repair with mesh, possible open. Risks, benefits and alternatives were discussed. Risks including but not limited to bleeding, pain, infection, scar(s), chronic pain after surgery, repeat procedure, injuries to bladder, colon, small bowel, other intra-abd organs, mesh complication, possible recurrence of symptoms, prolong hospital/surgical stay, cardiopulmonary event, seizure, stroke, allergic reaction to administered medication and . Patient's questions were answered to his satisfaction. Patient understands and wishes to proceed with surgery. Will schedule surgery at his convenience. Travel and lifting weight limit restrictions also discussed. Patient is fully aware of these restrictions. Discussed umbilical hernia and its repair at the same time if patient wishes; he wishes to observe at this time due to no symptoms. HPI: 48 year old y/o male self referred for evaluation of left groin pain that has been present for about a year. Patient states he typically has a feeling of dull annoyance in regards to discomfort but over the last several days he has had sharp pain with activities. Patient denies any presence of a bulge. Denies any change in bowel habits. Surgical history remarkable for left testicle removed due to torsion at age 13. PAST MEDICAL HISTORY No date: Gout 11/23/2023: NEGATIVE HISTORY OF Comment: NO pn,tb,dm,ca, heart dis No date: Sleep apnea PAST SURGICAL HISTORY No date: FINGER SURGERY HX; Right Comment: Right Thumb No date: SHOULDER SURGERY HX; Left No date: TESTICLE SURGERY HX; Left No date: TOOTH EXTRACTION Comment: [place] MEDICATIONS: Current Outpatient Medications: colchicine 0.6 mg capsule, Take 1 capsule by mouth once daily., Disp: 90 capsule, Rfl: 0 allopurinol (ZYLOPRIM) 100 mg tablet, Take 1 tablet by mouth once daily., Disp: 30 tablet, Rfl: 0 ALLERGIES No Known Allergies FAMILY HISTORY Problem Relation Age of Onset Diabetes Father Gout Brother Social History Tobacco Use Smoking status: Never Smokeless tobacco: Never REVIEW OF SYSTEMS: GENERAL: No weight loss, malaise or fevers HEENT: Negative for frequent or significant headaches, No changes in hearing or vision, no nose bleeds or other nasal problems NECK: Negative for lumps, goiter, pain and significant neck swelling RESPIRATORY: Negative for cough, hemoptysis, wheezing, COPD, dyspnea or shortness of breath, + sleep apnea CARDIOVASCULAR: Negative for chest pain, leg swelling, hypertension, CHF or palpitations GI: No nausea, vomiting, or diarrhea : See HPI MUSCULOSKELETAL: + gout SKIN: Negative for lesions, rash, and itching PSYCH: Negative NEURO: No history of headaches, syncope, paralysis, seizures or tremors PHYSICAL EXAM: BP 135/83 Pulse 67 Ht 177.8 cm (5' 10 ) Wt 85.7 kg (188 lb 15 oz) BMI 27.11 kg/m Body mass index is 27.11 kg/m . GENERAL: Healthy, alert, no distress, cooperative SKIN: Skin color, texture, turgor normal. No rashes or lesions. HEAD/SINUSES: No significant findings NECK: Supple ABDOMEN: Soft, nontender and + small reducible non-tender umbilical hernia. EXTREMITIES: No ulcers NEURO: Grossly normal cognition, motor function GENITALIA MALE: + small mildly tender left inguinal hernia at the pubic tubercle, reducible; left testicle absent. Diagnostic tests reviewed for today's visit: No new labs SIGNATURE: Aretha Donato RN PATIENT NAME: Rehan Monet DATE: November 23, 2023 TIME: 10:32 AM Park Leonard DO documented in this encounter [facility] 10-24-2023 Telephone encounter Note The patient was called for an updated on his lab results CMP showed Cr of 1.3 (the patient was instructed on avoidance of NSAIDs and need to follow this) Uric acid was 9.7 (the patient was instructed on the need of urate lowering therapy and that the target in his case is <6) Plan: Allopurinol 100 mg po daily Colchicine 0.6 mg po daily Repeat CBC, CMP and uric acid in 1 month [facility] 10-24-2023 Miscellaneous Notes The patient was called for an updated on his lab results CMP showed Cr of 1.3 (the patient was instructed on avoidance of NSAIDs and need to follow this) Uric acid was 9.7 (the patient was instructed on the need of urate lowering therapy and that the target in his case is <6) Plan: Allopurinol 100 mg po daily Colchicine 0.6 mg po daily Repeat CBC, CMP and uric acid in 1 month documented in this encounter [facility] 10-21-2023 Instructions Lisette Frazier MD - 10/21/2023 8:57 AM EDT 1- Please get your labs done on the first floor 2- Will touch base with you regarding further plans once results are back 3- Please call for appointment to follow up with me in 3 months (number provided below) 4- Reach out to me using my chart if you are having any flare/questions The nature of gout is fully explained, including dietary relationship, acute and interval phase and treatment of both. Avoidance of alcohol recommened, and written literature is given along with a low purine diet. Emphasized that gout is caused by high uric acid levels which become crystals that collect in joints. Solid deposits called tophi can develop after years and deposit in joints, cartilage, kidney and bones. Attacks create severe pain and swelling, and may have chills, fevers and appetite loss. Attack risks include: illness, stress, injury, certain drugs and certain foods. Rest, applying cold, and protecting the affected joint with splints can promote recovery. To prevent attacks: 1. Reduce alcohol intake. 2. Avoid anchovies, sardines, mock, organ meats (eg, liver), legumes (eg, dried beans, peas), mushrooms, spinach, asparagus and cauliflower. 3. Increased intake of dark berries (blueberries, blackberries and cherries). Soybeans and tofu may help. 4. Maintain a healthy weight and drink plenty of fluids. RHEUMATOLOGY APPOINTMENTS [phone] documented in this encounter [facility] 10-21-2023 History of Presen t illness Narrative Images from the original note were not included. Rheumatology CONSULTATION Date of Service: 10/21/2023 Patient: Rehan Monet Medical Record: [id number] Primary Care Physician: Kirby Aldrich DO Last Rheumatology visit: 10/21/2023 (with Lisette Frazier) Referring Provider: No referring provider defined for this encounter. History of Present Illness Rehan Monet is a 48 year old White male who presents on 10/21/2023 for an in-person visit for evaluation of Gout. A 48 y/o M patient with PMHX of IVETH (non-compliant with CPAP), gout who presents for further evaluation. The patient reported that his first episode was 6 years ago in his right ankle, it got swollen and red, was unable to walk on it, and though he had broke it, he used Ice and prednisone and it took care of it back then. Since then he was educated about gout but elected not to be started on urate lowering therapy medications. Reported that uric acid might have been at 11 at that time. He has on average 6-7 episodes annually that he manages mainly with ibuprofen/prednisone. Most recent episode was about 10 days ago and involved the big toe of his left foot which is a usual place for his flares. He notices some knee pain but no swelling or redness similar to the appearance in the feet. The pain fluctuates between 10/10 at times and 3/10 He is usually doing great between episodes. He reports morning stiffness in both feet that resolved usually within 1 hour. Reports he is stick to a diet low in meat and high fructose corn syrup, he also cut down on his alcohol Diet habits mostly: Breakfast, smoothie, oat meal Lunch , salad, minimize dressing Dinner Try to keep an eye on that too PMHX: as mentioned PSHX: Torn labrum left shoulder 20 yrs ago, Broken right thumb SH: No smoking Alcohol, twice monthly, 2 drinks vodka, wine FH: Brother with gout Pain Evaluation 04/17/2020 Pain Evaluation Pain Score 5 Location Shoulder-Left Description Other: See comment Duration (#) 2 Duration (Timeframe) Days Frequency Continuous Intervention Reposition;Relaxation;Positionin g Patient-Entered Data PROMIS Assessments 10/16/2023 PROMIS Global Health - (T-Scores - the mean of general population = 50. Five points is a clinically meaningful difference.) Physical T-Score 44.9 Mental T-Score 53.3 10/16/2023 PROMIS CAT Pain Interference PROMIS Pain Interference T-Score (range: 10 - 90) 68 (moderate) PROMIS Pain Interference Percentile 4 PROMIS Adult Short Form-Global Health Score (Mental) 53.3 (Very Good) 10/16/2023 PROMIS CAT Fatigue PROMIS Fatigue T-Score 39 (within normal limits) PROMIS Fatigue Percentile 86 10/16/2023 PROMIS PHYSICAL FUNCTION T-SCORE PROMIS Physical Function T-Score 61 (within normal limits) Physical Function Percentile 86 RAPID 3 [place] Activities of Daily Living 10/16/2023 7:56 AM Dress self? With SOME difficulty Get in and out of bed? Without ANY difficulty Walk outdoors? With MUCH difficulty Wash and dry body? Without ANY difficulty Get in and out of car? With SOME difficulty RAPID 3 Disease Activity Weighed Score Levels: 0 - 1: Near Remission 1.3 - 2.0: Low Severity 2.3 - 4.0: Moderate Severity 4.3 - 10.0: High Severity 10/16/2023 RAPID-3 Weighed Score RAPID 3 Weighed Score 5.39 (High severity ) Review of Systems Review of Systems CONSTITUTION: Negative for: Fever and Recent weight change HEENT: Negative for: Nosebleeds, Mouth sores, Trouble swallowing and Dry mouth RESPIRATORY: Negative for: Cough, Shortness of breath and Pain with breathing GASTROINTESTINAL: Negative for: Melena, Diarrhea, Heartburn and Abdominal pain MUSCULOSKELETAL: Positive for: Arthralgias, Joint swelling and Morning Joint Stiffness Negative for: Myalgias and Muscle weakness NEUROLOGICAL: Negative for: Headaches, Numbness and Memory loss SKIN: Negative for: Rash, Skin changes, Hair loss and Nail changes EYES: Negative for: Eye pain, Eye redness, Eye dryness and visual disturbance CARDIOVASCULAR: Negative for: Chest pain and Leg swelling GENITOURINARY: Negative for: Dysuria and Hematuria HEMATOLOGIC/LYMPHATIC: Negative for: Swollen glands All other reviewed and negative other than HPI. Past Medical History PAST MEDICAL HISTORY Diagnosis Date Gout Sleep apnea Past Surgical History PAST SURGICAL HISTORY Procedure Laterality Date FINGER SURGERY HX Right Right Thumb SHOULDER SURGERY HX Left TESTICLE SURGERY HX Left TOOTH EXTRACTION [place] Family History FAMILY HISTORY Problem Relation Age of Onset Diabetes Father Gout Brother Social History Social History Tobacco Use Smoking status: Never Smokeless tobacco: Never Current Medications No current outpatient medications on file. Labs No recent labs Imaging Last XR Chest - Impression Only No resulted procedures found. Health Maintenance Current Immunizations Reviewed on 10/21/2023 Name Date COVID-19 vaccine, monovalent (Hurray!) 07/23/2020 , 07/02/2020 Physical Exam GENERAL APPEARANCE: Well groomed. Alert and oriented x 3. In no distress. VITAL SIGNS: BP 153/96 Pulse 66 Temp (Src) 97.5 (Temporal) Ht 5' 10 (1.78m) Physical Exam SKIN: No rash, thickening, nodules, discoloration. EYES: PERRL, EOMI HENT: Normal external examination of the ears and nose, lips, oropharynx and tongue. No oropharyngeal lesions, exudate, or sores. NECK: No mass or asymmetry. RESPIRATORY: Normal respiratory effort. Clear to auscultation and percussion. CARDIOVASCULAR: Heart RRR without gallop, murmur, or rub ABDOMEN: BS normal. No bruits, No tenderness, mass, or hepatosplenomegaly. NEUROLOGIC: Sensory exam normal. MUSCULOSKELETAL EXAMINATION: Soft tissue tender points: None Motor exam: Normal 5+/5+ muscle strength. Normal bulk and tone. Upper extremities: Shoulders: Full ROM in all thomas, no tenderness to palpation. No swelling or effusion. Elbows: Full ROM in flexion and extension. No swelling or effusion. No tenderness to palpation to the joint line, olecranon, medial or lateral epicondyles. Wrists: Full ROM in all thomas. No swelling or synovitis. No pain with pronation/supination. No tenderness to palpation Hands: Full ROM in flexion and extension. Full station captain strength. No swelling or synovitis along the MCPs, PIPs, and DIPs. No tenderness along the MCPs, PIPs, and DIPs. Lower extremities: Hips: Full ROM without pain. No tenderness to palpation along greater trochanter, gluteal fossa, or piriformis. Knees: Full ROM in flexion and extension. No swelling or effusion. No tenderness to palpation. Ankles: Full ROM in all thomas. No swelling or effusion. No tenderness to palpation along the joint line, medial/lateral malleolus. Feet: Left: Redness, swelling and tenderness noted on the first left MTP Right: Full ROM in toe flexion/extension. No effusion. No tenderness to palpation. No evidence of MTP swelling. There is currently no information documented on the homunculus. Go to the Rheumatology activity and complete the homunculus joint exam. Joint Exam 10/21/2023 No joint exam has been documented for this visit Joint Exam Data (across time) Impression Diagnoses: (M10.09) Acute idiopathic gout of multiple sites (primary encounter diagnosis) A 48 y/o M patient with PMHX of IVETH (non-compliant with CPAP), gout who presents for further evaluation. The patient reported that his first episode was 6 years ago in his right ankle, it got swollen and red, was unable to walk on it, and though he had broke it, he used Ice and prednisone and it took care of it back then. Since then he was educated about gout but elected not to be started on urate lowering therapy medications. Reported that uric acid might have been at 11 at that time. He has on average 6-7 episodes annually that he manages mainly with ibuprofen/prednisone. He has been also cutting down on his alcohol and sticking to a diet to minimize his flares but it doesn't seem to be helping for him. On exam it was noted that his left MTP was Red, mildly swollen and tenderness was noted as well. Based off the number of the flares the patient is having and typical description of gout, the patient qualifies for urate lowering therapy along with anti-inflammatory prophylaxis for at least 3-6 months per ACR guidelines. First line drug is allopurinol, and in patients with normal renal function could be started at lower dose 100 mg po daily and titrate up to target a serum urate level of <6 with starting colchicine 0.6 mg daily for prophylaxis. The patient was educated about the side effects including the allopurinol hypersensitivity reaction and the need to stop it immediately if skin reaction occurs. Plan Orders this visit: Office Visit on 10/21/23 COMPLETE BLOOD COUNT AND DIFFERENTIAL COMPREHENSIVE METABOLIC PANEL SEDIMENTATION RATE, WESTERGREN C-REACTIVE PROTEIN URIC ACID - CBC - CMP - ESR - CRP - URIC ACID - Upon results will start allopurinol 100 mg daily and titrate up to target uric acid <6 along with colchicine 0.6 mg po daily Return in about 3 months (around 01/21/2024). I spent a total of 60 minutes on the date of the service which included preparing to see the patient, [id number] patient care, completing clinical documentation, obtaining and/or reviewing separately obtained history, performing a medically appropriate examination, counseling and educating the patient/family/caregiver, and ordering medications, tests, or procedures. Lisette Frazier MD Rheumatology Fellow PGY-IV Date: October 20, 2023 Time: 11:33 AM Staff Addendum: I have reviewed the history and physical examination obtained and documented by the fellow and I personally participated in the jolley components. I have discussed the case and management of the patient's care with the fellow . Assessment and plan discussed with patient Rehan is a 48 year old male who presents for history of acute onset episodic monoarthritis. Previously occurring in his ankle and most recently 1st MTP.. His first episode self resolved. Other episodes were treated with nsaids or prednisone. He has started to have an increase in frequency of episodes with having about 6 this year. No prior arthrocentesis or DECT. Clinical history is consistent with gout. No other systemic symptoms. Discussed gout and the nature of disease today. Discussed diet. Recommend urate lowering therapy to prevent further flares and joint damage. Discussed lab work today and initiation of allopurinol in combination with colchicine as ppx. Discussed r/b of each medication. Will titrate allopurinol slowly with goal uric acid <6. Uric acid q3-4 weeks Follow up in 3 months Latonia Mohan MD Rheumatology Staff documented in this encounter [facility] 10-21-2023 Note HNO ID: [id number] Author: LATONIA MOHAN MD Service: ? Author Type: Fellow Type: Progress Notes Filed: 10/24/2023 09:16 Note Text: Rheumatology CONSULTATION Date of Service: 10/21/2023 Patient: Rehan Monet Medical Record: [id number] Primary Care Physician: Kirby Aldrich DO Last Rheumatology visit: 10/21/2023 (with Lisette Frazier) Referring Provider: No referring provider defined for this encounter. History of Present Illness Rehan Monet is a 48 year old White male who presents on 10/21/2023 for an in-person visit for evaluation of Gout. A 48 y/o M patient with PMHX of IVETH (non-compliant with CPAP), gout who presents for further evaluation. The patient reported that his first episode was 6 years ago in his right ankle, it got swollen and red, was unable to walk on it, and though he had broke it, he used Ice and prednisone and it took care of it back then. Since then he was educated about gout but elected not to be started on urate lowering therapy medications. Reported that uric acid might have been at 11 at that time. He has on average 6-7 episodes annually that he manages mainly with ibuprofen/prednisone. Most recent episode was about 10 days ago and involved the big toe of his left foot which is a usual place for his flares. He notices some knee pain but no swelling or redness similar to the appearance in the feet. The pain fluctuates between 10/10 at times and 3/10 He is usually doing great between episodes. He reports morning stiffness in both feet that resolved usually within 1 hour. Reports he is stick to a diet low in meat and high fructose corn syrup, he also cut down on his alcohol Diet habits mostly: Breakfast, smoothie, oat meal Lunch , salad, minimize dressing Dinner Try to keep an eye on that too PMHX: as mentioned PSHX: Torn labrum left shoulder 20 yrs ago, Broken right thumb SH: No smoking Alcohol, twice monthly, 2 drinks vodka, wine FH: Brother with gout Pain Evaluation 04/17/2020 Pain Evaluation Pain Score 5 Location Shoulder-Left Description Other: See comment Duration (#) 2 Duration (Timeframe) Days Frequency Continuous Intervention Reposition;Relaxation;Positionin g Patient-Entered Data PROMIS Assessments 10/16/2023 PROMIS Global Health - (T-Scores - the mean of general population = 50. Five points is a clinically meaningful difference.) Physical T-Score 44.9 Mental T-Score 53.3 10/16/2023 PROMIS CAT Pain Interference PROMIS Pain Interference T-Score (range: 10 - 90) 68 (moderate) PROMIS Pain Interference Percentile 4 PROMIS Adult Short Form-Global Health Score (Mental) 53.3 (Very Good) 10/16/2023 PROMIS CAT Fatigue PROMIS Fatigue T-Score 39 (within normal limits) PROMIS Fatigue Percentile 86 10/16/2023 PROMIS PHYSICAL FUNCTION T-SCORE PROMIS Physical Function T-Score 61 (within normal limits) Physical Function Percentile 86 RAPID 3 [place] Activities of Daily Living 10/16/2023 7:56 AM Dress self? With SOME difficulty Get in and out of bed? Without ANY difficulty Walk outdoors? With MUCH difficulty Wash and dry body? Without ANY difficulty Get in and out of car? With SOME difficulty RAPID 3 Disease Activity Weighed Score Levels: 0 - 1: Near Remission 1.3 - 2.0: Low Severity 2.3 - 4.0: Moderate Severity 4.3 - 10.0: High Severity 10/16/2023 RAPID-3 Weighed Score RAPID 3 Weighed Score 5.39 (High severity ) Review of Systems Review of Systems CONSTITUTION: Negative for: Fever and Recent weight change HEENT: Negative for: Nosebleeds, Mouth sores, Trouble swallowing and Dry mouth RESPIRATORY: Negative for: Cough, Shortness of breath and Pain with breathing GASTROINTESTINAL: Negative for: Melena, Diarrhea, Heartburn and Abdominal pain MUSCULOSKELETAL: Positive for: Arthralgias, Joint swelling and Morning Joint Stiffness Negative for: Myalgias and Muscle weakness NEUROLOGICAL: Negative for: Headaches, Numbness and Memory loss SKIN: Negative for: Rash, Skin changes, Hair loss and Nail changes EYES: Negative for: Eye pain, Eye redness, Eye dryness and visual disturbance CARDIOVASCULAR: Negative for: Chest pain and Leg swelling GENITOURINARY: Negative for: Dysuria and Hematuria HEMATOLOGIC/LYMPHATIC: Negative for: Swollen glands All other reviewed and negative other than HPI. Past Medical History PAST MEDICAL HISTORY Diagnosis Date Gout Sleep apnea Past Surgical History PAST SURGICAL HISTORY Procedure Laterality Date FINGER SURGERY HX Right Right Thumb SHOULDER SURGERY HX Left TESTICLE SURGERY HX Left TOOTH EXTRACTION [place] Family History FAMILY HISTORY Problem Relation Age of Onset Diabetes Father Gout Brother Social History Social History Tobacco Use Smoking status: Never Smokeless tobacco: Never Current Medications No current outpatient medications on file. Labs No recent labs Imaging Last XR Chest - Impression Only (more content not included)... [facility] 12-22-2022 Evaluation note Encounter Date Diagnosis Assessment Notes Nov, Gout (ICD-10 - M10.9) We discussed that his uric acid level was elevated at 7.6. He voices that a long time ago he felt like he had gout, just by talking to others and having similar symptoms, at that time he had a blood test done but his recollection was that the uric acid level was not elevated. At that time his uric acid level was still considered normal but at the high end of normal (2019). I explained to him that now that he has had at least two flare ups he likely does have gout. He admits that he has struggled with this here and there and has had more than two flare ups. He will take Ibuprofen when he has a flare up and it does knock it out . He has it pinned down to a few beers that cause the flare up. I did recommend that he begin treatment to get the uric acid level down to prevent the uric acid crystals from destroying his joints. I recommend he start Allopurinol. Side effects/risks/be nefits of medication were reviewed. He should see a decrease in the gout flare ups. This is a daily medication. He voices that he is not a fan of every day medication and feels if he is more aware of what he is eating and drinking then he can prevent the flare ups from occuring. If he would like to make lifestyle changes and dietary changes he can do this and then repeat lab in a few months, if the uric acid level is not going down then we would need to discuss Allopurinol again. He is in agreement to this plan. I will mail him an order to have done before the end of February (2022). He can call for results. If he gets a flare up before then he should call for treatment. Nov, Other 8:27 AM - 8:34 AM [facility] Other 09-13-2023 Evaluation note* Encounter Date Diagnosis Assessment Notes Treatment Notes Treatment Clinical Notes Nov, Foot pain (ICD-10 - M79.673) [facility] Other 08-23-2023 Evaluation note* Encounter Date Diagnosis Assessment Notes Treatment Notes Treatment Clinical Notes Oct, Hyperlipidemia (ICD-10 - E78.5) [facility] Other 08-23-2023 Evaluation note* Encounter Date Diagnosis Assessment Notes Treatment Notes Treatment Clinical Notes Oct, Weight loss (ICD-10 - R63.4) He has lost three pounds since last seen. He is not currently taking any supplements. He does weight training, walks more and is active. He is encouraged to eat plenty of protein daily. Oct, Palpitation (ICD-10 - R00.2) He had a stress test done in 2018 which was normal. He had a rightward axis and an incomplete right bundle branch block. He had an EKG done on 11-09-22 which showed the same thing, an incomplete right bundle branch block with sinus rhythm. I did use a visual aid to help show him what this means. This is the way he was made and there is nothing that needs to be done about this. He voices that when he gets the palpitation it is breathtaking, he has had these intermittently since 2018. He has less stress in his new position then he did previously. He could go weeks without having an episode, says it seems to occur more at night when he is relaxed and calm. It does not stop when the palpitation starts, it continues and then subsides and then revs back up. He will take a deep breath when this happens and then it will subside. This is a natural response which tells the body to reset. He does not feel the palpitation that he is aware of when he is active. He can be active without having to stop what he is doing. It usually occurs when he is on his back, if he rolls to his side it seems to help. He feels wide awake when these happen but he has been woken up by the palpitations. We discussed a 30 day holter monitor and I did recommend that he have a 30 day holter done. I did recommend that he have this done at [facility] and he agrees. If needed we would refer him back to [facility] for evaluation. He only has one cup of caffeine per day Oct, Sleep apnea (ICD-10 - G47.30) He does not feel that his sleep apnea is causing the palpitations that he is having. He voices that when he was diagnosed with sleep apnea he was encouraged to work on weight loss. He had the machine to treat sleep apnea but admits he hated it and turned the machine back in. He has lost weight since he turned the machine in. Oct, Other I did advise manpreet osman that once his lab has been received we will call him with the results. [facility] Other 08-10-2023 Evaluation note* Encounter Date Diagnosis Assessment Notes Treatment Notes Treatment Clinical Notes Oct, Palpitations (ICD-10 - R00.2) [facility] Other 06-05-2023 Evaluation note* Encounter Date Diagnosis Assessment Notes Treatment Notes Treatment Clinical Notes Aug, Allergic rhinitis (ICD-10 - J30.9) [facility] Other 10-28-2022 Evaluation note* Encounter Date Diagnosis Assessment Notes Treatment Notes Treatment Clinical Notes Dec, Foot pain, left (ICD-10 - M79.672) [facility] Other 05-24-2022 Evaluation note* Encounter Date Diagnosis Assessment Notes Treatment Notes Treatment Clinical Notes July, Obstructive sleep apnea (adult) (pediatric) (ICD-10 - G47.33) He had previous history of documented obstructive sleep apnea with AHI in the mild range. He did not tolerate positive airway pressure well, and has gone without treatment since that time. He returns now largely due to continued snoring, though some daytime fatigue is present. His weight has gone up slightly he has substantial sleep disturbance, which may also indicate the presence of significant obstructive sleep apnea (home sleep testing as he initially had often underestimates apnea severity). I reviewed the situation with him in detail and he expresses good understanding should he want to try again with CPAP, repeat HST would be required as a insurance will generally need a study that is more recent. Alternatively, he could treat the snoring by using his oral appliance, through weight reduction, addressing nasal obstruction, or other intervention. Extensive discussion undertaken.... After discussion he wants to work on weight reduction without other evaluation or treatment. I encouraged him to consider trying the oral appliance as well. Should he change his mind, the interventions and approaches discussed above could also be considered he wants to call us should problems arise or should he want to pursue some of the other options, and does not want a follow-up visit scheduled at this time July, Snoring (ICD-10 - R06.83) Weight reduction, alcohol avoidance, addressing nasal airway obstruction, oral appliance use, and other interventions for snoring were discussed in detail July, Non-seasonal allergic rhinitis, unspecified trigger (ICD-10 - J30.89) Nasal obstruction can worsen snoring and apnea. Addressing this problem directly may make significant improvement in snoring July, BMI 26.0-26.9,adult (ICD-10 - Z68.26) Weight reduction is broadly beneficial and strategies for achieving the goal were discussed in detail [facility] Other 01-21-2021 History of Present illness Narrative* Vianey Eubanks (Rt) - 04/17/2020 12:00 PM EST Radiology Service Progress Note PATIENT NAME: Rehan Monet DATE OF SERVICE: April 17, 2020 TIME: 12:50 PM PATIENT IDENTITY VERIFICATION COMPLETED USING TWO (2) IDENTIFIERS: Name and Date of confirmedby patient verbally. FALL SCREENING: Has the patient had 2 falls in the last year or 1 fall with injury or currently using an Ambulatory Assistive Device (Walker, Cane, Wheelchair, Crutches, etc.)? No PATIENT GENDER DATA: Male PATIENT RELEVANT IMPLANT DATA REVIEWED: Not Applicable RADIOLOGY DEPARTMENT: General X-ray: Exam(s) Completed: Upper Extremity X- Ray(s): Shoulder, AP / TRUE AP / AXILLARY / SUPRA OUTLET left : PERIPHERAL IV DATA: Not applicable SIGNED BY: RT Carola April 17, 2020 12:50 PM [facility] noteNo assessment information availableMercy Health Work Phone: Evaluation noteNo InformationNoDepartment of [facility] GetThis Other Evaluation note* Diagnosis Pain Generalized pain documented in this encounter [facility] note* Diagnosis Acute idiopathic gout of multiple sites- Primary documented in this encounter [facility] note* Diagnosis Chronic gout of multiple sites, unspecified cause- Primary documented in this encounter [facility] note* Diagnosis Chronic gout of multiple sites, unspecified cause documented in this encounter [facility] note* Diagnosis Left inguinal hernia- Primary Inguinal hernia without mention of obstruction or gangrene, unilateral or unspecified, (not specified as recurrent) documented in this encounter [facility] note* Diagnosis Sleep apnea, unspecified type- Primary Pre-op evaluation Preoperative examination, unspecified Left inguinal hernia Inguinal hernia without mention of obstruction or gangrene, unilateral or unspecified, (not specified as recurrent) * Assessment & Plan Note - Ximena Gonzales APRN.CNP - 11/25/2023 7:59 AM EDT Associated Problem(s): Sleep apnea Assessment: Does not use CPAP documented in this encounter [facility] note* Diagnosis Chronic gout of multiple sites, unspecified cause Sleep apnea, unspecified type- Primary Pre-op evaluation Preoperative examination, unspecified Left inguinal hernia Inguinal hernia without mention of obstruction or gangrene, unilateral or unspecified, (not specified as recurrent) documented in this encounter [facility] note* Diagnosis Sleep apnea, unspecified type- Primary Pre-op evaluation Preoperative examination, unspecified Post-operative state- Primary Other postprocedural status documented in this encounter [facility] note* Diagnosis Sleep apnea, unspecified type- Primary Pre-op evaluation Preoperative examination, unspecified Left groin pain- Primary Abdominal pain, left lower quadrant Postop check Follow-up examination, following unspecified surgery documented in this encounter [facility] note* Diagnosis Sleep apnea, unspecified type- Primary Pre-op evaluation Preoperative examination, unspecified Chronic idiopathic gout involving toe without tophus, unspecified laterality- Primary Allopurinol adverse reaction, initial encounter [facility] Author Alon Head [facility] Authored April 02, 2024 2: 54pm The above note written by __ _Zena Paniagua____ acting as human recorder, note dictated by Dr. Wells .I performed the above HPI, ROS, and Examination. I formulated and dictated the treatment plan and was present for entire encounter. Alon Head D.O. [facility] Work Phone: Evaluation note* Diagnosis Sleep apnea, unspecified type- Primary Pre-op evaluation Preoperative examination, unspecified Chronic gout of multiple sites, unspecified cause documented in this encounter [facility] Narrative - Reported* Type Description Date Medical History History of Chicken Pox as a chil d Medical History Mononucleosis, school age Medical History IVETH on CPAP Surgical History Right broken thumb 1994 Surgical History Left Testicle Removed; Dr. Rey Vasquez 1987 Surgical History Left Rotator Cuff Repaired; Dr. Bell 2002 Hospitalization History Left Testicle Removed; Kari Vasquez 1987 Hospitalization History Vasectomy - Dr Mike Hospitalization History [facility] Other [facility] Narrative - Reported* Type Description Date Medical History History of Chicken Pox as a chil d Medical History Mononucleosis, school age Medical History IVETH, mild Surgical History Right broken thumb 1994 Surgical History Left Testicle Removed; Dr. Rey Vasquez 1987 Surgical History Left Rotator Cuff Repaired; Dr. Bell 2002 Hospitalization History Left Testicle Removed; Kari Vasquez 1987 Hospitalization History Vasectomy - Dr Mike Hospitalization History [facility] Other Summary Purpose Family History Relationship Condition Age at Onset Recorded Date/T deborah father Diabetes mellitus Unknown grandparent Unknown Heart disease Unknown Advance Directives Advance Directive Response Recorded Date/ Time Advance Directives No August 16 1:19pm Advance Directive Response Recorded Date/ Time Advance Directives No August 16 12:19pm Chief Complaint and Reason for Visit Chief Complaint returned machine/int erested in trying pap again Chief Complaint R59.0 R22.9 Chief Complaint Admit Date lt side pain/sleep apnea April 02 2:04pm Reason for Visit Admit Date Abdominal pain April 02, 2024 2: 04pm Gout April 02, 2024 2: 04pm Onychomycosis April 02, 2024 2: 04pm Sleep apnea April 02, 2024 2: 04pm Reason for Referral Specialty Diagnoses / Procedures Referred By Khalif carty Referred To Contact CT IMAGING Diagnoses Left groin pain Procedures CT PELVIS WO IVCON CT PELVIS W/O CONTRAST MATERIAL Soham Leonard DO [address] [place] [address] [place] [address] Referral ID Status Reason Start Date Expiration Date Visits Requested Visits Authorized [id number] New Request Auto-Generat ed Referral 12/29/2023 01/27/2025 1 1 Additional Source Comments (unrecognized sect ion and content) No Status Records FoundNo Status Records FoundNo Status Records FoundNo Status Records Found INFORMATION SOURCE (unrecogn ized section and content) DATE CREATED [facility] [facility] DATE CREATED AUTHOR AUTHOR'S ORGANIZ ATION 04/10/2022 [facility] DATE CREATED AUTHOR AUTHOR'S ORGANIZ ATION 08/26/2023 [facility] EPIC DATE CREATED AUTHOR AUTHOR'S ORGANIZ ATION 01/15/2024 [facility] Care Teams (unrecognized sec tion and content) Team Status: Inactive Member Role Status Dates Alon Head DO Primary Care Provider, Attending Pro vider Active Team Status: Active Member Role Status Dates Alon Head DO Primary Care Provider Active Team Status: Inactive Member Role Status Dates Alon Head DO Primary Care Provider Active Alon Bellamy MD Attending Provider Active Director Case Relationship Specialty Start Date End Date Kirby Aldrich DO PCP - General Internal Medicine 05/07/10 Director Case Relationship Specialty Start Date End Date Kirby Aldrich DO PCP - General Internal Medicine 05/07/10 Director Case Relationship Specialty Start Date End Date Kirby Aldrich DO PCP - General Internal Medicine 05/07/10 Director Case Relationship Specialty Start Date End Date Kirby Aldrich DO PCP - General Internal Medicine 05/07/10 Director Case Relationship Specialty Start Date End Date Kirby Aldrich DO PCP - General Internal Medicine 05/07/10 Director Case Relationship Specialty Start Date End Date Kirby Aldrich DO PCP - General Internal Medicine 05/07/10 Director Case Relationship Specialty Start Date End Date Kirby Aldrich DO PCP - General Internal Medicine 05/07/10 Director Case Relationship Specialty Start Date End Date Kirby Aldrich DO PCP - General Internal Medicine 05/07/10 Director Case Relationship Specialty Start Date End Date Kirby Aldrich DO PCP - General Internal Medicine 05/07/10 Director Case Relationship Specialty Start Date End Date Kirby Aldrich DO PCP - General Internal Medicine 05/07/10 Director Case Relationship Specialty Start Date End Date Kirby Aldrich DO PCP - General Internal Medicine 05/07/10 Team Status: Inactive Member Role Status Dates Alon Head DO Primary Care Provide r, Attending Provider Active Start: April 02, 2024 End: April 02, 2024 Director Case Relationship Specialty Start Date End Date Kirby Aldrich DO PCP - General Internal Medicine 05/07/10 Goals (unrecognized section and content) Goals may be documented in a n alternate sectionNo InformationNo InformationNo InformationNo InformationNo InformationGoals may be documented in an alternate sectionNo InformationNo InformationNo InformationNo InformationNo InformationNo InformationNo InformationNo InformationNo InformationNo InformationNo InformationNo InformationGoals may be documented in an alternate sectionGoals may be documented in an alternate section REASON FOR VISIT (unrecogniz ed section and content) Reason Comments [facility] RMP Reason Comments Gout Reason Comments Results Patient Update Orders Reason Comments Schedule Surgery Reason Comments Consult Patient here to disc uss left inguinal hernia. Reason Comments Pre-Op Visit Reason Onset Date Comments Refill Request 11/24/2023 Reason Comments Post Op Follow Up POD 17 left inguinal hernia Reason Comments Follow Up Reason Onset Date Comments Refill Request 02/20/2024 Reason Onset Date Comments Refill Request 04/23/2024 Source Comments (unrecognize d section and content) In the event this informatio n is protected by the Federal Confidentiality of Alcohol and Drug Abuse Patient Records regulations: The Federal rules restrict any use of the information to criminally investigate or prosecute any alcohol or drug abuse patient.[facility] the event this information is protected by the Federal Confidentiality of Alcohol and Drug Abuse Patient Records regulations: The Federal rules restrict any use of the information to criminally investigate or prosecute any alcohol or drug abuse patient.[facility] Troy[facility] the event this information is protected by the Federal Confidentiality of Alcohol and Drug Abuse Patient Records regulations: The Federal rules restrict any use of the information to criminally investigate or prosecute any alcohol or drug abuse patient.[facility] Troy[facility] the event this information is protected by the Federal Confidentiality of Alcohol and Drug Abuse Patient Records regulations: The Federal rules restrict any use of the information to criminally investigate or prosecute any alcohol or drug abuse patient.[facility] Troy[facility] the event this information is protected by the Federal Confidentiality of Alcohol and Drug Abuse Patient Records regulations: The Federal rules restrict any use of the information to criminally investigate or prosecute any alcohol or drug abuse patient.[facility] Troy[facility] the event this information is protected by the Federal Confidentiality of Alcohol and Drug Abuse Patient Records regulations: The Federal rules restrict any use of the information to criminally investigate or prosecute any alcohol or drug abuse patient.[facility] Troy[facility] the event this information is protected by the Federal Confidentiality of Alcohol and Drug Abuse Patient Records regulations: The Federal rules restrict any use of the information to criminally investigate or prosecute any alcohol or drug abuse patient.[facility] Troy[facility] the event this information is protected by the Federal Confidentiality of Alcohol and Drug Abuse Patient Records regulations: The Federal rules restrict any use of the information to criminally investigate or prosecute any alcohol or drug abuse patient.[facility] Troy[facility] the event this information is protected by the Federal Confidentiality of Alcohol and Drug Abuse Patient Records regulations: The Federal rules restrict any use of the information to criminally investigate or prosecute any alcohol or drug abuse patient.[facility] Troy[facility] the event this information is protected by the Federal Confidentiality of Alcohol and Drug Abuse Patient Records regulations: The Federal rules restrict any use of the information to criminally investigate or prosecute any alcohol or drug abuse patient.[facility] Troy[facility] the event this information is protected by the Federal Confidentiality of Alcohol and Drug Abuse Patient Records regulations: The Federal rules restrict any use of the information to criminally investigate or prosecute any alcohol or drug abuse patient.[facility] Troy[facility] the event this information is protected by the Federal Confidentiality of Alcohol and Drug Abuse Patient Records regulations: The Federal rules restrict any use of the information to criminally investigate or prosecute any alcohol or drug abuse patient.[facility] Troy[facility] the event this information is protected by the Federal Confidentiality of Alcohol and Drug Abuse Patient Records regulations: The Federal rules restrict any use of the information to criminally investigate or prosecute any alcohol or drug abuse patient.[facility] Troy[facility] the event this information is protected by the Federal Confidentiality of Alcohol and Drug Abuse Patient Records regulations: The Federal rules restrict any use of the information to criminally investigate or prosecute any alcohol or drug abuse patient.[facility] FOR RECORDS PERTAINING TO PATIENTS WHO ARE OR HAVE BEEN ENROLLED IN A CHEMICAL DEPENDENCY/SUBSTANCEABUSE PROGRAM, SOME INFORMATION MAY BE OMITTED. This clinical summary was aggregated from multiple sources. Caution should be exercised in using it in the provision of clinical care. This summary normalizes information from multiple sources, and as a consequence, information in this document may materially change the coding, format and clinical context of patient data. In addition, data may be omitted in some cases. CLINICAL DECISIONS SHOULD BE BASED ON THE PRIMARY CLINICAL RECORDS. [facility] [facility]. provides no warranty or guarantee of the accuracy or completeness of information in this document.
[2024-05-08 15:40] LABS: Basophils Percent Auto 0.6 % (0.2-2.0); Eosinophils Absolute Auto 0.1 10^3/uL (0.0-0.7); Eosinophils Percent Auto 1.3 % (0.9-7.0); Hematocrit 41.3 % (42.0-54.0); Hemoglobin 14.3 g/dL (14.0-18.0); Immature Granulocytes Abs Auto 0.01 10^3/uL (0.00-0.03); Immature Granulocytes Pct Auto 0.2 % (0.0-0.5); Lymphocytes Absolute Auto 1.6 10^3/uL (1.2-3.8); Mean Corpuscular HGB Conc 34.6 g/dL (29.9-35.2); Mean Corpuscular Hemoglobin 30.6 pg (25.9-34.0); Mean Corpuscular Volume 88.4 fL (80.0-94.0); Mean Platelet Volume 9.3 fL (9.5-13.5); Monocytes Absolute Auto 0.5 10^3/uL (0.3-0.8); Monocytes Percent Auto 10.4 % (1.7-12.0); Neutrophils Absolute Auto 2.6 10^3/uL (1.4-6.5); Neutrophils Percent Auto 53.5 % (43.0-75.0); Platelet Count 281 10^3/uL (150-450); Red Blood Count 4.67 10^6/uL (4.70-6.10); White Blood Count 4.8 10^3/uL (4.0-11.0)
[2024-05-08 16:22] LABS: Alanine Aminotransferase 32 U/L (16-63); Albumin Globulin Ratio 1.2; Albumin Level 3.8 g/dL (3.4-5.0); Alkaline Phosphatase 84 U/L (46-116); Aspartate Amino Transferase 22 U/L (15-37); BUN Creatinine Ratio 10.1; Bilirubin Total 0.5 mg/dL (0.2-1.0); Calcium 8.7 mg/dL (8.5-10.1); Carbon Dioxide 30.6 mmol/L (21.0-32.0); Chloride 104 mmol/L (98-107); Estimated GFR (African America >60 (>=60 mL/min/1.73m^2); Estimated GFR (Non-African Ame 55 (>=60 mL/min/1.73m^2); Globulin 3.3 g/dL; Glucose 113 mg/dL (74-106); Potassium 3.6 mmol/L (3.5-5.1); Sodium 142 mmol/L (136-145); Total Protein 7.1 g/dL (6.4-8.2)
== END 2024-05-08 14:55 | disposition home or self-care (01) ==
PROVIDERS: PCP Family Medicine
DX: M1A.0790 Idiopathic chronic gout, unspecified ankle and foot, without tophus (tophi) (principal)
CPT/HCPCS: 36415; 80053; 84550; 85025

== ENCOUNTER 2024-12-12 14:49 | Outpatient (OUT) | payer OTHER, SELFPAY ==
--- OUTSIDE RECORDS SUMMARY | 2024-12-12 14:56 | XMS_ITS | Encounter Summary ---
Author Organization [facility] Address [address] [place] [address] Care Team Providers Care Billing And Insurance Coordinator Name Role Phone Kirby Aldrich Primary Care Provider [phone] Source Comments In the event this information is protected by the Federal Confidentiality of Alcohol and Drug AbusePatient Records regulations: The Federal rules restrict any use of the information to criminally investigate or prosecute any alcohol or drug abuse patient.[facility] Reason for Visit * Reason Onset Date Comments Refill Request 12/05/2024 Encounter Details Date Type Department Care Team (Late st Contact Info) Description 12/05/2024 Refill Rheumatology [address] [address] Lisette Frazier MD [address] [place] [address] Refill Request Social History Tobacco Use Types Packs/Day Years Used Date Smoking Tobacco: Never Smokeless Tobacco: Never PHQ-2 Answer Date Recorded PHQ-2 score 0 10/16/2023 Area Deprivation Index Answer Date Ben rded National Score (1-100), lower number is lower ri sk 63 11/25/2023 State Score (1-10), lower number is lower risk 4 11/25/2023 Data from: https://www.neighborhoodatlas.[facility].edu/. Last address used for calculation [address] [place] [address] [address] 11/25/2023 Sex and Gender Information Value Date Recorded Sex Assigned at Not on file Legal Sex Male 10:06 AM EST Gender Identity Not on file Sexual Orientation Straight 04/17/2020 10 :10 AM EST documented as of this encounter Plan of Treatment Not on file documented as of this encounter Visit Diagnoses Diagnosis Chronic gout of multiple sites, unspecified cause documented in this encounter Care Teams Billing And Insurance Coordinator Relationship Specialty Start Date End Date Kirby Aldrich DO PCP - General Internal Medicine 05/07/10 documented as of this encounter
--- OUTSIDE RECORDS SUMMARY | 2024-12-12 14:56 | XMS_ITS | Encounter Summary ---
Author Organization [facility] Address [address] [place] [address] Care Team Providers Care Application Systems Engineer Name Role Phone Kirby Aldrich Shari SANDOVAL Primary Care Provider [phone] Source Comments In the event this information is protected by the Federal Confidentiality of Alcohol and Drug AbusePatient Records regulations: The Federal rules restrict any use of the information to criminally investigate or prosecute any alcohol or drug abuse patient.[facility] Encounter Details Date Type Department Care Team (Late st Contact Info) Description 10/12/2024 Patient Msg HOSP MAIN H060 [address] [id number] Provider, Ccf Sign up to manage your digestive symptoms in between visits, covered by insurance Social History Tobacco Use Types Packs/Day Years Used Date Smoking Tobacco: Never Smokeless Tobacco: Never PHQ-2 Answer Date Recorded PHQ-2 score 0 10/16/2023 Area Deprivation Index Answer Date Ben rded National Score (1-100), lower number is lower ri sk 63 11/25/2023 State Score (1-10), lower number is lower risk 4 11/25/2023 Data from: https://www.neighborhoodatlas.medicine.[facility].edu/. Last address used for calculation [address] [place] [address] 11/25/2023 Sex and Gender Information Value Date Recorded Sex Assigned at Not on file Legal Sex Male 10:06 AM EST Gender Identity Not on file Sexual Orientation Straight 04/17/2020 10 :10 AM EST documented as of this encounter Plan of Treatment Not on file documented as of this encounter Visit Diagnoses Not on filedocumented in this encounter Care Teams Application Systems Engineer Relationship Specialty Start Date End Date Kirby Aldrich DO PCP - General Internal Medicine 05/07/10 documented as of this encounter
--- OUTSIDE RECORDS SUMMARY | 2024-12-12 14:56 | XMS_ITS | Encounter Summary ---
Author Organization [facility] Address [address] [place] [address] Care Team Providers Care Adjuster Leader Name Role Phone Kirby Aldrich Primary Care Provider [phone] Source Comments In the event this information is protected by the Federal Confidentiality of Alcohol and Drug AbusePatient Records regulations: The Federal rules restrict any use of the information to criminally investigate or prosecute any alcohol or drug abuse patient.[facility] Encounter Details Date Type Department Care Team (Late st Contact Info) Description 10/17/2023 Patient [facility] [place] [address] Ema Hunt [facility] Social History Tobacco Use Types Packs/Day Years Used Date Smoking Tobacco: Never Assessed PHQ-2 Answer Date Recorded PHQ-2 score 0 10/16/2023 Area Deprivation Index Answer Date Ben rded National Score (1-100), lower number is lower ri sk Not on file 04/17/2020 State Score (1-10), lower number is lower risk N ot on file 04/17/2020 Data from: https://www.neighborhoodatlas.medicine.[facility].edu/. Last address used for calculation Not on file 04/17/2020 Sex and Gender Information Value Date Recorded Sex Assigned at Not on file Legal Sex Male 10:06 AM EST Gender Identity Not on file Sexual Orientation Straight 04/17/2020 10 :10 AM EST documented as of this encounter Plan of Treatment Not on file documented as of this encounter Visit Diagnoses Not on filedocumented in this encounter Care Teams Adjuster Leader Relationship Specialty Start Date End Date Kirby Aldrich DO PCP - General Internal Medicine 05/07/10 documented as of this encounter
--- OUTSIDE RECORDS SUMMARY | 2024-12-12 14:56 | XMS_ITS | Encounter Summary ---
Author Organization [facility] Address [address] [place] [address] Care Team Providers Care Fruit Loader Machine Operator Name Role Phone Kirby Aldrich Primary Care Provider [phone] Source Comments In the event this information is protected by the Federal Confidentiality of Alcohol and Drug AbusePatient Records regulations: The Federal rules restrict any use of the information to criminally investigate or prosecute any alcohol or drug abuse patient.[facility] Encounter Details Date Type Department Care Team (Latest Contact Info) Description 12/27/2023 Get Medical Advice General Surgery [address] [place] [address] Soham Leonard DO [address] [place] [id number] Post surgery complications Social History Tobacco Use Types Packs/Day Years Used Date Smoking Tobacco: Never Smokeless Tobacco: Never PHQ-2 Answer Date Recorded PHQ-2 score 0 10/16/2023 Area Deprivation Index Answer Date Ben rded National Score (1-100), lower number is lower ri sk 63 11/25/2023 State Score (1-10), lower number is lower risk 4 11/25/2023 Data from: https://www.neighborhoodatlas.medicine.[facility]/. Last address used for calculation [address] [place] [address] 11/25/2023 Sex and Gender Information Value Date Recorded Sex Assigned at Not on file Legal Sex Male 10:06 AM EST Gender Identity Not on file Sexual Orientation Straight 04/17/2020 10 :10 AM EST documented as of this encounter Plan of Treatment Not on file documented as of this encounter Visit Diagnoses Not on filedocumented in this encounter Care Teams Fruit Loader Machine Operator Relationship Specialty Start Date End Date Kirby Aldrich DO PCP - General Internal Medicine 05/07/10 documented as of this encounter
--- OUTSIDE RECORDS SUMMARY | 2024-12-12 14:56 | XMS_ITS | Encounter Summary ---
Author Organization [facility] Address [address] [place] [address] Care Team Providers Care Computer Systems Engineer Name Role Phone Kirby Aldrich Primary Care Provider [phone] Source Comments In the event this information is protected by the Federal Confidentiality of Alcohol and Drug AbusePatient Records regulations: The Federal rules restrict any use of the information to criminally investigate or prosecute any alcohol or drug abuse patient.[facility] Reason for Visit * Reason Onset Date Comments Refill Request 12/03/2024 Encounter Details Date Type Department Care Team (Late st Contact Info) Description 12/03/2024 Refill Rheumatology [address] [address] Lisette Frazier MD [address] [place] [address] Refill Request Social History Tobacco Use Types Packs/Day Years Used Date Smoking Tobacco: Never Smokeless Tobacco: Never PHQ-2 Answer Date Recorded PHQ-2 score 0 10/16/2023 Area Deprivation Index Answer Date Ben rded National Score (1-100), lower number is lower ri sk 63 11/25/2023 State Score (1-10), lower number is lower risk 4 11/25/2023 Data from: https://www.neighborhoodatlas.[facility].edu/. Last address used for calculation [address] [place] [address] [address] 11/25/2023 Sex and Gender Information [...] cause documented in this encounter Care Teams Computer Systems Engineer Relationship Specialty Start Date End Date Kirby Aldrich DO PCP - General Internal Medicine 05/07/10 documented as of this encounter
--- OUTSIDE RECORDS SUMMARY | 2024-12-12 14:56 | XMS_ITS | Encounter Summary ---
Author Organization [facility] Address [address] [place] [address] Care Team Providers Care Parking Lot Signaler Name Role Phone Kiryb Aldrich Shari SANDOVAL Primary Care Provider [phone] Source Comments In the event this information is protected by the Federal Confidentiality of Alcohol and Drug AbusePatient Records regulations: The Federal rules restrict any use of the information to criminally investigate or prosecute any alcohol or drug abuse patient.[facility] Encounter Details Date Type Department Care Team (Late st Contact Info) Description 11/24/2023 Patient Msg Rheumatology [address] [phone] Provider, Ccf Uric acid Social History Tobacco Use Types Packs/Day Years Used Date Smoking Tobacco: Never Smokeless Tobacco: Never PHQ-2 Answer Date Recorded PHQ-2 score 0 10/16/2023 Area Deprivation Index Answer Date Ben rded National Score (1-100), lower number is lower ri sk 63 11/25/2023 State Score (1-10), lower number is lower risk 4 11/25/2023 Data from: https://www.neighborhoodatlas.medicine.[facility].edu/. Last address used for calculation [address] [place] [address] 11/25/2023 Sex and Gender Information Value Date Recorded Sex Assigned at Not on file Legal Sex Male 10:06 AM EST Gender Identity Not on file Sexual Orientation Straight 04/17/2020 10 :10 AM EST documented as of this encounter Plan of Treatment Not on file documented as of this encounter Visit Diagnoses Not on filedocumented in this encounter Care Teams Parking Lot Signaler Relationship Specialty Start Date End Date Kirby Aldrich DO PCP - General Internal Medicine 05/07/10 documented as of this encounter
--- OUTSIDE RECORDS SUMMARY | 2024-12-12 14:56 | XMS_ITS | Clinical Summary ---
Author Organization [facility] Address [address] [place] [address] Care Team Providers Care Purchasing Director Name Role Phone Unavailable Primary Care Provider Unavailabl e Allergies No known active allergies Medications terbinafine (LamISIL) 250 MG tabletIndicatio ns:Onychomycosi s Take 1 tablet, by mouth, once daily, 30 days 30 tablet 4 Active terbinafine (LamISIL AT) 1 % creamIndication s:Onychomycosis Apply topically to hands and feet 1-2 times a week as a preventative. 15 g 11 4 Active Active Problems No known active problems Family History Medical History Relation Name Comments Melanoma Neg Hx Social History Tobacco Use Types Packs/Day Years Used Date Smoking Tobacco: Never Smokeless Tobacco: Never Tobacco Cessation:Counseling Given: Not Answered Sex and Gender Information Value Date Recorded Sex Assigned at Not on file Legal Sex Male 6:39 PM EDT Gender Identity Not on file Sexual Orientation Not on file Plan of Treatment Not on file Insurance [employer]
--- OUTSIDE RECORDS SUMMARY | 2024-12-12 14:56 | XMS_ITS | Encounter Summary ---
Author Organization [facility] Address [address] [place] [address] Care Team Providers Care Crane Man Name Role Phone Kirby Aldrich Shari SANDOVAL Primary Care Provider [phone] Source Comments In the event this information is protected by the Federal Confidentiality of Alcohol and Drug AbusePatient Records regulations: The Federal rules restrict any use of the information to criminally investigate or prosecute any alcohol or drug abuse patient.[facility] Encounter Details Date Type Department Care Team (Late st Contact Info) Description 04/23/2024 Get Medical Advice Rheumatology [address] [id number] Provider, Ccf Appointment Social History Tobacco Use Types Packs/Day Years Used Date Smoking Tobacco: Never Smokeless Tobacco: Never PHQ-2 Answer Date Recorded PHQ-2 score 0 10/16/2023 Area Deprivation Index Answer Date Ben rded National Score (1-100), lower number is lower ri sk 63 11/25/2023 State Score (1-10), lower number is lower risk 4 11/25/2023 Data from: https://www.neighborhoodatlas.medicine.[facility].edu/. Last address used for calculation [address] [place] [address] 11/25/2023 Sex and Gender Information Value Date Recorded Sex Assigned at Not on file Legal Sex Male 10:06 AM EST Gender Identity Not on file Sexual Orientation Straight 04/17/2020 10 :10 AM EST documented as of this encounter Plan of Treatment Not on file documented as of this encounter Visit Diagnoses Diagnosis Chronic idiopathic gout involving toe without tophus, unspecified laterality- Primary documented in this encounter Care Teams Crane Man Relationship Specialty Start Date End Date Kirby Aldrich DO PCP - General Internal Medicine 05/07/10 documented as of this encounter
--- OUTSIDE RECORDS SUMMARY | 2024-12-12 14:56 | XMS_ITS | Encounter Summary ---
Author Organization [facility] Address [address] [place] [address] Phone Care Team Providers Care Pharmacology Teacher Name Role Phone Matthew Spear DO Primary Care Provider [phone] Encounter Details Date Type Department Care Team (Late st Contact Info) Description 11/17/2022 Scanned Document [facility] [address] [place] [address] Conversion, Onbase Social History Tobacco Use Types Packs/Day Years Used Date Smoking Tobacco: Never Assessed Sex and Gender Information Value Date Recorded Sex Assigned at Not on file Legal Sex Male 2:03 AM EST Gender Identity Not on file Sexual Orientation Not on file documented as of this encounter Plan of Treatment Not on file documented as of this encounter Visit Diagnoses Not on filedocumented in this encounter Care Teams Pharmacology Teacher Relationship Specialty Start Date End Date Matthew Spear DO PCP - General 02/15/19 documented as of this encounter
--- OUTSIDE RECORDS SUMMARY | 2024-12-12 14:56 | XMS_ITS | Encounter Summary ---
Author Organization [facility] Address [address] [place] [address] Care Team Providers Care Financial Assistance Specialist Name Role Phone Kirby Aldrich Shari SANDOVAL Primary Care Provider Source Comments In the event this information is protected by the Federal Confidentiality of Alcohol and Drug AbusePatient Records regulations: The Federal rules restrict any use of the information to criminally investigate or prosecute any alcohol or drug abuse patient.[facility] Encounter Details Date Type Department Care Team (Late st Contact Info) Description 12/15/2023 Patient Msg Rheumatology [address] [phone] Provider, Ccf Follow up in 3 days Social History Tobacco Use Types Packs/Day Years Used Date Smoking Tobacco: Never Smokeless Tobacco: Never PHQ-2 Answer Date Recorded PHQ-2 score 0 10/16/2023 Area Deprivation Index Answer Date Ben rded National Score (1-100), lower number is lower ri sk 63 11/25/2023 State Score (1-10), lower number is lower risk 4 11/25/2023 Data from: https://www.neighborhoodatlas.medicine.[facility].edu/. Last address used for calculation [address] [place] [address] 11/25/2023 Sex and Gender Information Value Date Recorded Sex Assigned at Not on file Legal Sex Male 10:06 AM EST Gender Identity Not on file Sexual Orientation Straight 04/17/2020 10 :10 AM EST documented as of this encounter Plan of Treatment Not on file documented as of this encounter Visit Diagnoses Not on filedocumented in this encounter Care Teams Financial Assistance Specialist Relationship Specialty Start Date End Date Kirby Aldrich DO PCP - General Internal Medicine 05/07/10 documented as of this encounter
--- OUTSIDE RECORDS SUMMARY | 2024-12-12 14:56 | XMS_ITS | Clinical Summary ---
Author Organization [facility] Address [address] [place] [phone] Phone Care Team Providers Care Green Inspector Name Role Phone Matthew Spear Primary Care Provider [phone] Social History Tobacco Use Types Packs/Day Years Used Date Smoking Tobacco: Never Assessed Sex and Gender Information Value Date Recorded Sex Assigned at Not on file Legal Sex Male 2:03 AM EST Gender Identity Not on file Sexual Orientation Not on file Plan of Treatment Health Maintenance Due Date Last Done Comments CT Colonography 1974 Colonoscopy 1974 Colorectal Cancer Screening 1974 FIT-DNA (Cologuard) 1974 FIT 1974 HIV Screening 1974 Lipid Panel 1974 Sigmoidoscopy 1974 Yearly Adult Physical 1974 MMR Vaccines (1 of 1 - Stand tammy series) 05/30/1975 Hepatitis C Screening 1992 Hepatitis B Vaccines (1 of 3 - 19+ 3-dose series) 1993 DTaP/Tdap/Td Vaccines (1 - Tdap) 1996 PSA Prostate Cancer Screening 2024 Pneumococcal Vaccine (1 of 1 - PCV) 2024 Zoster Vaccines (1 of 2) 2024 COVID-19 Vaccine (1 - 2023-2 5 season) 2024 Influenza Vaccine (#1) 2024 HIB Vaccines Aged Out No longer eligi ble based on patient's age to complete this topic HPV Vaccines Aged Out No longer eligi ble based on patient's age to complete this topic Hepatitis A Vaccines Aged Out No long er eligible based on patient's age to complete this topic IPV Vaccines Aged Out No longer eligi ble based on patient's age to complete this topic Meningococcal Vaccine Aged Out No darlene bia eligible based on patient's age to complete this topic Rotavirus Vaccines Aged Out No longer eligible based on patient's age to complete this topic Care Teams Green Inspector Relationship Specialty Start Date End Date Matthew Spear DO PCP - General 02/15/19
--- OUTSIDE RECORDS SUMMARY | 2024-12-12 14:56 | XMS_ITS | Clinical Summary ---
Author Organization [facility] Address [address] [place] [id number] Care Team Providers Care [employer] Name Role Phone Kirby Aldrich Primary Care Provider [phone] Allergies Active Allergy Reactions Criticality Noted Date Comments Allopurinol Hives 12/21/2023 Medications febuxostat (ULORIC) 40 mg tab Take 1 tablet by mouth once daily. 30 tablet 1 07/23/2024 Active colchicine 0.6 mg capsuleIndicatio ns:Chronic gout of multiple sites, unspecified cause Take 1 capsule by mouth once daily. 90 capsule 09/25/2024 12/25/19 Active Active Problems Problem Noted Date Diagnosed Date Allopurinol adverse reaction, initial encounter 12/21/2023 Chronic gout involving toe without tophus 2023 Sleep apnea 10/21/2023 Assessment & Plan (11/25/2023 7:59 AM EDT): Assessment: Does not use CPAP Gout 10/21/2023 Pain of toe of left foot 10/21/2023 Instability of left shoulder joint 04/17/2020 AC joint pain 05/12/2010 Encounters Date Type Department Care Team Description 12/05/2024 Refill Rheumatology [address] [address] Lisette Frazier MD Refill Request 12/03/2024 Refill Rheumatology [address] [address] Lisette Frazier MD Refill Request 10/12/2024 Patient Msg HOSP MAIN [id number] [address] [place] [address] Provider, [facility] Sign up to manage your digestive symptoms in between visits, covered by insurance 09/25/2024 Refill Rheumatology [address] [place] [address] Lisette Frazier MD Refill Request from Last 3 Months Immunizations Immunization Administration Dates Next Due COVID-19 original vaccine, a ge 12+ yr, monovalent (PredPol-BIONTGT Nexus - PURPLE TOP) 07/23/2020,07/02/2020 Family History Medical History Relation Comments Gout Brother Diabetes Father Relation Status Comments Brother Father Social History Tobacco Use Types Packs/Day Years Used Date Smoking Tobacco: Never Smokeless Tobacco: Never Tobacco Cessation:Counseling Given: Not Answered PHQ-2 Answer Date Recorded PHQ-2 score 0 10/16/2023 Area Deprivation Index Answer Date Ben rded National Score (1-100), lower number is lower ri sk 63 11/25/2023 State Score (1-10), lower number is lower risk 4 11/25/2023 Data from: https://www.neighborhoodatlas.medicine.[facility].edu/. Last address used for calculation [address] [place] [address] [address] 11/25/2023 Sex and Gender Information Value Date Recorded Sex Assigned at Not on file Legal Sex Male 10:06 AM EST Gender Identity Not on file Sexual Orientation Straight 04/17/2020 10 :10 AM EST Last Filed Vital Signs Vital Sign Reading Time Taken Comments Blood Pressure 149/67 12/05/2023 9:30 AM EDT Pulse 68 12/05/2023 9:30 AM EDT Temperature 36.4 C (97.6 F) 12/05/2023 8:51 AM EDT Respiratory Rate 16 12/05/2023 9:15 AM EDT Oxygen Saturation 100% 12/05/2023 9:30 AM EDT Inhaled Oxygen Concentration - - Weight 87.5 kg (192 lb 12.7 oz) 11/25/2023 7:44 AM EDT Height 177.8 cm (5' 10 ) 11/25/2023 7:44 AM EDT Body Mass Index 27.66 11/25/2023 7:44 AM EDT Plan of Treatment Health Maintenance Due Date Last Done Comments Anxiety Screening 1992 Depression Screening 1992 HIV Screening 1992 Hepatitis C Screening 1992 DTaP,Tdap,Td Vaccine (1 - Tdap) 1993 Hepatitis B Vaccine (1 of 3 - 19+ 3-dose series) [address] Colonography 05/30/2019 Cologuard (FIT-DNA) 05/30/2019 Colonoscopy 05/30/2019 Colorectal Cancer Screening 05/30/2019 Fecal Occult Blood 05/30/2019 Sigmoidoscopy 05/30/2019 Pneumococcal Vaccine: 50+ (1 of 1 - PCV) 2024 Shingrix Vaccine (1 of 2) 2024 Influenza Vaccine (#1) 2024 Diabetes Screening 11/22/2026 11/23/2023, 10/21/2023 Medical Devices Implanted Type Area Swing Saw Operator Device Identifier Shelf Expiration Date Model / Serial / Lot Med Dextile Lt 13cm X 9cm (5.1' X 3.5'') - [id number] Implanted:Qty: 1 on 12/05/2023 at [facility] Mesh Left: Inguinal [employer] 01/26/2028 [id number] / / [id number] Procedures Procedure Name Priority Date/Time Associated Diagnosis Comments COMPREHENSIVE METABOLIC PANEL Routine 11/23/2023 11:00 AM EDT Chronic gout of multiple sites, unspecified cause from Last 3 Months or Most Recently Relevant to Health Maintenance Results * (ABNORMAL) COMPREHENSIVE METABOLIC PANEL (11/23/2023 11:00 AM EDT) Pathologist [facility] Protein, Total 6.3 6.3 - 8.0 g/dL 11/23/2023 11:37 AM EDT [facility] Albumin 4.3 3.9 - 4.9 g/dL 11/23/2023 11:37 AM EDT [facility] Calcium, Total 8.9 8.5 - 10.2 mg/dL 11/23/2023 11:37 AM EDT [facility] Bilirubin, Total 0.8 0.2 - 1.3 mg/dL 11/23/2023 11:37 AM [facility] Alkaline Phosphatase 54 38 - 113 U/L 11/23/2023 11:37 AM [facility] AST 21 14 - 40 U/L 11/23/2023 11:37 AM [facility] ALT 24 10 - 54 U/L 11/23/2023 11:37 AM [facility] Glucose 96 74 - 99 mg/dL 11/23/2023 11:37 AM [facility] Comment: The [place] Diabetes Association (ADA) provides guidance for cutoff [...] Standards of Medical Care in Diabetes 2016, [place] Diabetes Association. Diabetes Care. 2016.39(Suppl 1). BUN 16 9 - 24 mg/dL 11/23/2023 11:37 AM [facility] Creatinine 1.28(H) 0.73 - 1.22 mg/dL 11/23/2023 11:37 AM [facility] Sodium 138 136 - 144 mmol/L 11/23/2023 11:37 AM [facility] Potassium 4.3 3.7 - 5.1 mmol/L 11/23/2023 11:37 AM [facility] Chloride 104 98 - 107 mmol/L 11/23/2023 11:37 AM [facility] CO2 30 22 - 30 mmol/L 11/23/2023 11:37 AM [facility] Anion Gap 4(L) 8 - 15 mmol/L 11/23/2023 11:37 AM [facility] Estimated Glomerular Filtration Rate 69 >=60 mL/min/1. 73m 11/23/2023 11:37 AM EDT [facility] Comment:Estimated Glomerular Filtration Rate (eGFR) is calculated using the 2020 CKD-EPI creatinine equation. This equation utilizes serum creatinine, sex, and age as parameters. The creatinine assay has traceable calibration to isotope dilution- mass spectrometry. Refer to KDIGO guidelines for clinical interpretation. In patients with unstable renal function, e.g. those with acute kidney injury, the eGFR may not accurately reflect actual GFR. Blood BLOOD SPECIMEN / Unknown Venipuncture / Unknown 11/23/2023 11:00 AM EDT 11/23/2023 11:00 AM EDT us Lisette Frazier MD LABORATORY Final Result [facility] [address] [place] [address], from Last 3 Months or Most Recently Relevant to Health Maintenance Insurance [address] [place] [address] [facility] [place] [employer] PPO Care Teams [employer] Relationship Specialty Start Date End Date Kirby Aldrich DO PCP - General Internal Medicine 05/07/10
[2024-12-12 15:12] LABS: Hematocrit 42.1 % (42.0-54.0); Hemoglobin 14.8 g/dL (14.0-18.0); Immature Granulocytes Abs Auto 0.02 10^3/uL (0.00-0.03); Immature Granulocytes Pct Auto 0.3 % (0.0-0.5); Lymphocytes Absolute Auto 2.5 10^3/uL (1.2-3.8); Mean Corpuscular HGB Conc 35.2 g/dL (29.9-35.2); Mean Corpuscular Hemoglobin 30.7 pg (25.9-34.0); Mean Corpuscular Volume 87.3 fL (80.0-94.0); Platelet Count 288 10^3/uL (150-450); Red Blood Count 4.82 10^6/uL (4.70-6.10); White Blood Count 7.2 10^3/uL (4.0-11.0)
[2024-12-12 15:45] LABS: Alanine Aminotransferase 37 U/L (16-63); Albumin Globulin Ratio 1.1; Albumin Level 4.0 g/dL (3.4-5.0); Alkaline Phosphatase 70 U/L (46-116); Anion Gap 9.8; Aspartate Amino Transferase 15 U/L (15-37); Blood Urea Nitrogen 19.0 mg/dL (7.0-18.0); Calcium 8.8 mg/dL (8.5-10.1); Carbon Dioxide 29.1 mmol/L (21.0-32.0); Chloride 104 mmol/L (98-107); Estimated GFR (African America >60 (>=60 mL/min/1.73m^2); Estimated GFR (Non-African Ame >60 (>=60 mL/min/1.73m^2); Globulin 3.7 g/dL; Glucose 107 mg/dL (74-106); Potassium 3.9 mmol/L (3.5-5.1); Sodium 139 mmol/L (136-145); Total Protein 7.7 g/dL (6.4-8.2); Uric Acid 8.1 mg/dL (3.5-7.2)
--- OUTSIDE RECORDS SUMMARY | 2024-12-12 16:13 | XMS_ITS | CCD ---
Author Organization [facility] Care Team Providers Care Air Cargo Agent Name Role Phone ADILENE, DR CHI Attending Unavailable GIRVIN, DR CHI Consulting Unavailable GIRVIN, DR CHI Primary Care Unavailable GIRVIN, DR CHI Admitting Unavailable KlipperAlon Consulting Unavailable GIRVIN, DR CHI Primary Care Unavailable REINECK, DR NADIA Parada Attending Unavailabl e REINECK, DR NADIA Parada Consulting Unavailabl e REINECK, DR NADIA Parada Admitting Unavailabl e ZIEBER, DR RONN Crooks Consulting Unavailable GIRVIN, DR CHI Consulting [...] ble DO Alon Head Primary Care Provider [phone] MD Alon Bellamy Attending Provider [phone] Alon Head Unavailable Alon Bellamy Unavailable DO Alon Head Primary Care Provider DO Alon Head Attending Provider Alon Head Primary Care Unavailable Alon Bellamy Admitting Unavailable Alon Bellamy Attending Unavailable Alon Head Attending Unavailable Alon Head Admitting Unavailable Alon Head Primary Care Unavailable Kirby Best DO Primary Care Provider VALDEMAR DUMONT Attending Unavailable Kirby Best DO Primary Care Provider SOHAM LEONARD Referring Unavailable KIRBY BEST Primary Care Unavailable LISETTE FRAZIER Attending Unavailable KIRBY BEST Primary Care Unavailable LISA MENDOZA Attending Unavailable KIRBY BEST Primary Care Unavailable SOHAM LEONARD Attending Unavailable SOHAM LEONARD Referring Unavailable KIRBY BEST Primary Care Unavailable LEONARD SOHAM Admitting Unavailable LEONARD SOHAM Attending Unavailable SOHAM LEONARD Referring Unavailable KIRBY BEST Primary Care Unavailable ABLISETTE BRAND Attending Unavailable KIRBY BEST Primary Care Unavailable KIRBY BEST Primary Care Unavailable LEONARDSOHAM Attending Unavailable KIRBY BEST Primary Care Unavailable KIRBY BEST Primary Care Unavailable Allergies Allergy Classification Reported Allergen(s) Allergy Type Date of Onset Reaction(s) Facility (14 sources) Allopurinol; Translations: [ALLOPURINOL] Drug Allergy 12-21-2023 [facility] Work Phone: Medications Current Medications Medication [...] Dec, Active colchicine 0.6 mg oral capsule (20 sources) Start: 04-02-2024 take 1 tablet by mouth once daily Colchicine 0.6 mg tablet Active 0.6 MG PO Daily April 02, 2024 12:00am Start: 10-24-2023 End: 12-24-2024 take 1 capsule by mouth once daily colchicine 0.6 mg capsule Indications: Chronic gout of multiple sites, unspecified cause Take 1 capsule by mouth once daily. 90 capsule 09/25/2024 12/24/2024 Active enteric contrast (will be provided with [...] 12/30/2023 Active febuxostat 40 mg oral tablet (16 sources) Xanthine Oxidase Inhibitor Start: 12-21-2023 End: 09-21-2024 take 1 tablet by mouth once daily febuxostat (ULORIC) 40 mg tab Take 1 tablet by mouth once daily. 30 tablet 1 07/23/2024 Active methylPREDNISolone 4 mg oral tablet (9 [...] 20 mg tablet Discontinued 0 PO Daily 13 12October 13, 2023 11:00pm April 02, 2024 2:32pm [...] Problem Date Documented Da te Episodic/Chronic Abdominal pain (11 sources) Lower abdominal pain, [...] source) Pain in unspecified foot Episodic Other ear and sense organ disorders [...] [Unspecified sleep apnea] Chronic Residual codes; unclassified (20 sources) Sleep apnea; Translations: [Sleep apnea, unspecified] [...] Problem Classification Problem Date Documented Date Episodic/Chronic Abdominal hernia (2 sources) Left inguinal hernia ; Translations: [Unilateral inguinal hernia, without obstruction or gangrene, not specified as recurrent] Onset: 12-05-2023 11-23-2023 Episodic E Codes: Adverse effects of medical drugs (13 sources) Allopurinol adverse reaction; Translations: [Adverse effect of drugs affecting uric acid metabolism, initial encounter] Onset: 12-21-2023 12-21-2023 Episodic Headache; including migraine (4 sources) Other headache syndrome; Translations: [OTHER HEADACHE SYNDROME] Onset: 12-23-2020 Episodic Other connective tissue disease (19 sources) Pain of toe of left foot; Translations: [Pain in left toe(s)] Onset: 10-21-2023 10-21-2023 Episodic Other connective tissue disease (1 source) Pain in left toe(s); Translations: [Pain of toe of left foot] Onset: 10-21-2023 Episodic Other lower respiratory disease (1 source) Snoring Onset: 08-18-2021 Resolved: 08-18-2021 Episodic Other non-traumatic joint disorders (20 sources) Acromioclavicular joint pain; Translations: [Pain in unspecified shoulder] Onset: 05-12-2010 05-12-2010 Episodic Other non-traumatic joint disorders (20 sources) Instability of left shoulder joint; Translations: [Other instability, left shoulder] Onset: 04-17-2020 04-17-2020 Episodic Other nutritional; endocrine; and metabolic disorders (1 source) Body mass index (BMI) 26.0-26.9, adult Onset: 08-18-2021 Resolved: 08-18-2021 Episodic Results Test Name Value Interpretation Reference Range Facility [facility] 05-08-2024 CNPN Telephone (RHEUMN) REHAN MONET ([id number]) 1975 M Date Time Provider Department 05/08/24 LISETTE FRAZIERN During your visit today, we recorded the following information about you: Parish Arredondo Ma 05/08/2024 4:18 PM Signed Received lab results from [facility] collected on 05/08/24 See scanned docs Scan on 05/08/2024 4:08 PM by Provider, JAMAL Chisholm: Miscellaneous Lab Parish Arredondo Ma 05/09/2024 9:38 AM Signed Additional lab results Scan on 05/08/2024 5:10 PM by Provider, JAMAL Chisholm: Miscellaneous Lab Allergies As of Date: 05/08/2024 Noted Allergy Reaction ALLOPURINOL 12/21/2023 4 - Hives Date Reviewed: 12/29/2023 Reviewed by: Chelita Frost OCCA - Fully Assessed Reason for Visit: Outside Lab Results [753] Prescriptions as of 05/09/2024 - colchicine 0.6 mg capsule Take 1 capsule by mouth once daily. - febuxostat (ULORIC) 40 mg tab Take 1 tablet by mouth once daily. 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 As applicable, any other physician, advance practice provider, medical student, or other health professional student that will be observing or involved in the sensitive examination for educational or training purposes was discussed with the Patient or Authorized Accounts Receivable Administrator. The Patient or Authorized Accounts Receivable Administrator has agreed to proceed with the sensitive [...] 2:51 PM PAGER: Referring Provider: SOHAM LEONARD [[id number]] Allergies As of Date: 12/29/2023 Noted Allergy Reaction ALLOPURINOL 12/21/2023 4 - Hives Date Reviewed: 12/29/2023 Reviewed by: Chelita Frost OCCA - Fully Assessed Reason for Visit: Follow Up [171] Primary Visit Diagnosis:Left groin pain [R10.32] Other Visit Diagnosis:Postop check [Z09] Order(s):CT PELVIS WO IVCON [[id number]] Order #: [id number] FUTURE enteric contrast (will be provided with [...] for Encounter Date Provider Department Center 12/29/2023 [id number] LEONARD Encounter Status:Closed by PARK LEONARD on 12/29/23 [facility] CNOVnani 12-22-2023 CNOV Office Visit (BRENNAN ) RAYREHAN ([id number]) 1975 M Date Time Provider Department 12/22/23 [...] discussed with the Patient or Patient's Authorized Accounts Receivable Administrator. As applicable, any other physician, advance practice provider, medical student, or other health professional student that will be observing or involved in the sensitive examination for educational or training purposes was discussed with the Patient or Authorized Accounts Receivable Administrator. The Patient or Authorized Accounts Receivable Administrator has agreed to proceed with the sensitive examination. (Sensitive examination includes inspection and/or palpation of the breasts, pelvis, prostate and anorectal regions) Kathleen Buchanan LPN, book salesman Assessment ASSESSMENT: POD 17 s/p laparoscopic LIH [...] Encounter Status:Closed by LISA MENDOZA on 12/22/23 [facility] REHAN MON[facility] ([id number]) 1975 M Date Time Provider Department 12/07/23 ARETHA CORNELL During your visit today, we recorded the following information about you: Aretha Cornell RN 12/07/2023 8:53 AM Signed Called patient and received VM as identified by no general dentist/owner. Informed if any questions or concerns to [...] foot [M79.675] 10/21/2023 Encounter Status:Closed by ARETHA CORNELL on 12/07/23 [facility] ANES POSTPROC EVALon 024 ANES POSTPROC EVAL HNO ID: [id number] Author: JOE HYMAN MD Service: Anesthesiology Author Type: Anesthesiologist Type: Anesthesia Postprocedure Evaluation Filed: 12/05/2023 09:28 Note Text: POST ANESTHESIA EVALUATION NOTE : 1975 Procedure Summary Date: 12/05/23 Room / Location: [address] Anesthesia Start: 730 Anesthesia Stop: 850 Procedure: LAPAROSCOPIC HERNIORRHAPHY, INGUINAL INITIAL (Left: Groin) Diagnosis: Left inguinal hernia (Left inguinal hernia [K40.90]) Surgeons: Soham Leonard DO Responsible Provider: Joe Hyman MD Anesthesia Type: general ASA Status: 3 Anesthesia Type: general Airway Type: ETT Last Vitals Vitals Value Taken Time BP 148/67 12/05/23 0920 Temp 36.4 ?C (97.6 ?F) 12/05/23 0851 HR SpO2 82 12/05/23 0851 Resp 16 12/05/23 0915 SpO2 99 % 12/05/23926 Vitals shown include unfiled device data. Post [...] care. Anesthesia Observations No Documentation SIGNATURE: Joe Hyman MD PATIENT NAME: Rehan Monet DATE: December 05, 2023 TIME: 9:28 AM CSN: [id number] Normal [facility] ANES PRE-OPon 12-05-2023 ANES PRE-OP HNO ID: [id number] Author: JOE HYMAN MD Service: Anesthesiology Author Type: Anesthesiologist Type: Anesthesia Preprocedure Evaluation Filed: 12/05/2023 07:22 Note Text: ANESTHESIOLOGY DAY OF SURGERY NOTE : 1975 Procedure Information Date/Time: 12/05/23729 Procedure: LAPAROSCOPIC HERNIORRHAPHY, INGUINAL INITIAL (Left: Groin) Location: [place] [address] / [facility] Surgeons: Soham Leonard DO Estimated body mass [...] and consent discussed: yes. Patient / Responsible Democrat agrees to proceed: yes Patient / Surrogate [...] within 48 hours of Surgery/Procedure. SIGNATURE: Joe Hyman MD PATIENT NAME: Rehan Monet DATE: December 05, 2023 TIME: 7:22 AM CSN: [id number] Normal [facility] BRIEF OP NOTon 12-05-2023 BRIEF OP NOT HNO ID: [id number] Author: SOHAM LEONARD DO Service: General Surgery Author Type: Physician Type: Brief Op Note Filed: 12/05/2023 08:34 Note Text: BRIEF OPERATIVE / PROCEDURE NOTE LOG ID: [id number] SURGERY/PROCEDURE DATE: 12/05/2023 INCISION/PROCEDURE START TIME: 1 INCISION CLOSE/PROCEDURE END TIME: SURGEON(S)/PROCEDURAL IST(S) AND ASSOCIATE MEDIA PLANNER(S): Surgeons and Role: * Soham Leonard DO - Primary Physician Gluten Settling Tender: Lisa Mendoza PA-C SURGERY/PROCEDURE(S): Lap LIH repair [...] December 05, 2023 TIME: 8:34 AM Normal [facility] OPERATIVE NOon 12-05-2023 OPERATIVE NO HNO ID: [id number] Author: SOHAM LEONARD DO Service: General Surgery Author Type: Physician Type: Operative Report Filed: 12/05/2023 08:39 Note Text: [address], [facility] Phone: [phone] OPERATIVE REPORT NAME: Rehan Monet [facility] #: [id number] DATE: December 05, 2023 AGE: [age] year old SURGEON 1: Soham Leonard D.O. ASSOCIATE MEDIA PLANNER 1: PARIS Cooper No qualified resident was available to perform the service. OPERATION: Laparoscopic Left inguinal hernia repair with mesh. ANESTHESIA: General anesthesia. PREOPERATIVE DIAGNOSIS: Left reducible inguinal hernia. POSTOPERATIVE DIAGNOSIS: Left reducible indirect inguinal hernia. OPERATIVE INDICATIONS: The patient is a 48 year [id number] male with history of left inguinal bulge, [...] to repair the left inguinal hernia with Regaliiile laparoscopic inguinal hernia mesh 13 x 9 [...] DO December 05, 2023 8:37 AM Normal [facility] HISTORY PHYSICALon HISTORY PHYSICAL HNO ID: [id number] Author: XIMENA GONZALES APRN.EMPERATRIZ Service: ? Author Type: Nurse Practitioner Type: H&P Filed: 11/25/2023 08:00 Note Text: HISTORY AND PHYSICAL EXAMINATION SERVICE DATE: 11/25/2023 SERVICE TIME: 7:45 AM PRIMARY CARE PHYSICIAN: Kirby Best DO REASON FOR VISIT: Rehan Monet is [...] physical activity. STOP-Bang Score: STOP-Bang Score: 0 [id number] Score: Age: <65 Sex: male CHF history: No Hypertension history: No Stroke/TIA/thromboemb olism history: No Vascular disease history: No Diabetes history: No [id number] Score: 0 ANESTHESIA FINDINGS: Intubation History: No [...] HX; Left No date: TOOTH EXTRACTION Comment: Kamas Teeth FAMILY HISTORY Problem Relation Age of [...] Covid Immunization Dates Overdue - Covid-19 Vaccine () Overdue since 11/26/2022 07/23/2020 Imm Admin: COVID-19 original vaccine, age 12+ yr, monovalent (PFIZER-BIONTECH - PURPLE TOP) 07/02/2020 Imm Admin: COVID-19 original vaccine, age 12+ yr, monovalent (PFIZER-BIONTECH - PURPLE TOP) REVIEW OF SYSTEMS: PAIN ASSESSMENT: General: No weight loss, malaise or fevers. Neuro: No history of TIA's, stroke, [employer] tumor, impaired sensorium, hemiplegia, paraplegia or quadraplegia. No neurological symptoms or problems. Respiratory: No history of current cough or dyspnea, or pneumonia in the past 6 weeks. No history of respiratory/pulmonary symptoms or problems. +IVETH Cardiovascular: Negative for Recent DC, Angina, Chest Pain, PVD, DVT/PE GI: Negative [...] oncological symptom (more content not included)... Normal [facility] CBC W Auto Differential pane l (Bld)on 11-23-2023 Basophils (Bld) [#/Vol] 0.05 10*3/uL Normal <0.[address] [facility] Comment on above: Order Comment: Speci men Type: BLOOD SPECIMENOrdering Facility: [facility] Address: [address] [place] [address] Performed By: #### 5 7021-8 ####[facility] LABCLIA [id number] [place] [id number] [place] Basophils/100 WBC (Bld) 0.7 % Normal [facility] Comment on above: Order Comment: Speci men Type: BLOOD SPECIMENOrdering Facility: [facility] Address: [address] [place] [address] Performed By: #### 5 7021-8 ####[facility] LABIA [id number] [place] [address] [place] [facility] Differential cell count method Nom (Bld) Auto Normal [facility] Comment on above: Order Comment: Speci men Type: BLOOD SPECIMENOrdering Facility: [facility] Address: [address] [place] [address] Performed By: #### 5 7021-8 ####[facility] LABIA [id number] [place] [id number] [place] Eosinophils (Bld) [#/Vol] 0.11 10*3/uL Normal <0.[address] [facility] Comment on above: Order Comment: Speci men Type: BLOOD SPECIMENOrdering Facility: [facility] Address: [address] [place] [address] Performed By: #### 5 7021-8 ####[facility] LABIA [id number] [place] [id number] [place] Eosinophils/100 WBC (Bld) 1.6 % Normal [facility] Comment on above: Order Comment: Speci men Type: BLOOD SPECIMENOrdering Facility: [facility] Address: [address] [place] [address] Performed By: #### 5 7021-8 ####[facility] LABIA [id number] [place] [address] [place] Erythrocyte distribution width (RBC) [Ratio] 12.4 % Normal 11.5-15.[address] [facility] Comment on above: Order Comment: Speci men Type: BLOOD SPECIMENOrdering Facility: [facility] Address: [address] [place] [address] Performed By: #### 5 7021-8 ####[facility] [id number] [place] [address] [place] Hematocrit (Bld) [Volume fraction] 42.2 % Normal 39.0-51.[address] [facility] Comment on above: Order Comment: Speci men Type: BLOOD SPECIMENOrdering Facility: [facility] Address: [address] [place] [address] Performed By: #### 5 7021-8 ####[facility] [id number] [place] [address] [place] Hemoglobin (Bld) [Mass/Vol] 14.9 g/dL Normal 13.0-17.[address] [facility] Comment on above: Order Comment: Speci men Type: BLOOD SPECIMENOrdering Facility: [facility] Address: [address] [place] [address] Performed By: #### 5 7021-8 ####[facility]ITAL[facility] [id number] [place] [address] [place] Immature granulocytes (Bld) [#/Vol] 0.04 10*3/uL Normal <0.[address] [facility] Comment on above: Order Comment: Speci men Type: BLOOD SPECIMENOrdering Facility: [facility] Address: [address] [place] [address] Performed By: #### 5 7021-8 ####[facility] LABIA [id number] [place] [id number] [place] Immature granulocytes/100 WBC (Bld) 0.6 % Normal [facility] Comment on above: Order Comment: Speci men Type: BLOOD SPECIMENOrdering Facility: [facility] Address: [address] [place] [address] Performed By: #### 5 7021-8 ####[facility] LABCLIA [id number] [place] [address] [place] Lymphocytes (Bld) [#/Vol] 1.93 10*3/uL Normal 1.00-4.[address] [facility] Comment on above: Order Comment: Speci men Type: BLOOD SPECIMENOrdering Facility: [facility] Address: [address] [place] [address] Performed By: #### 5 7021-8 ####[facility] LABCLIA [id number] [place] [address] [place] Lymphocytes/100 WBC (Bld) 28.9 % Normal [facility] Comment on above: Order Comment: Speci men Type: BLOOD SPECIMENOrdering Facility: [facility] Address: [address] [place] [address] Performed By: #### 5 7021-8 ####[facility] LABCLIA [id number] [place] [address] [place] MCH (RBC) [Entitic mass] 30.8 pg Normal 26.0-34.[address] [facility] Comment on above: Order Comment: Speci men Type: BLOOD SPECIMENOrdering Facility: [facility] Address: [address] [place] [address] Performed By: #### 5 7021-8 ####[facility] LABCLIA [id number] [place] [address] [place] MCHC (RBC) [Mass/Vol] 35.3 g/dL Normal 30.5-36.[address] [facility] Comment on above: Order Comment: Speci men Type: BLOOD SPECIMENOrdering Facility: [facility] Address: [address] [place] [address] Performed By: #### 5 7021-8 ####[facility] LABCLIA [id number] [place] [address] [place] MCV (RBC) [Entitic vol] 87.4 fL Normal 80.0-100.[address] [facility] Comment on above: Order Comment: Speci men Type: BLOOD SPECIMENOrdering Facility: [facility] Address: [address] [place] [address] Performed By: #### 5 7021-8 ####[facility] LABIA [id number] [place] [address] [place] Monocytes (Bld) [#/Vol] 0.66 10*3/uL Normal <0.[address] [facility] Comment on above: Order Comment: Speci men Type: BLOOD SPECIMENOrdering Facility: [facility] Address: [address] [place] [address] Performed By: #### 5 7021-8 ####[facility] LABIA [id number] [place] [address] [place] Monocytes/100 WBC (Bld) 9.9 % Normal [facility] Comment on above: Order Comment: Speci men Type: BLOOD SPECIMENOrdering Facility: [facility] Address: [address] [place] [address] Performed By: #### 5 7021-8 ####[facility] LABIA [id number] [place] [address] [place] Neutrophils (Bld) [#/Vol] 3.89 10*3/uL Normal 1.45-7.[address] [facility] Comment on above: Order Comment: Speci men Type: BLOOD SPECIMENOrdering Facility: [facility] Address: [address] [place] [address] Performed By: #### 5 7021-8 ####[facility] LABIA [id number] [place] [address] [place] Neutrophils/100 WBC (Bld) 58.3 % Normal [facility] Comment on above: Order Comment: Speci men Type: BLOOD SPECIMENOrdering Facility: [facility] Address: [address] [place] [address] Performed By: #### 5 7021-8 ####[facility] LABIA [id number] [place] [address] [place] [facility] Nucleated RBC (Bld) [#/Vol] 10*3/uL Normal <0.[address] [facility] Comment on above: Order Comment: Speci men Type: BLOOD SPECIMENOrdering Facility: [facility] Address: [address] [place] [address] Performed By: #### 5 7021-8 ####[facility] LABIA [id number] [place] [address] [place] Nucleated RBC/100 WBC (Bld) [Ratio] 0.0 /100 WBC Normal [facility] Comment on above: Order Comment: Speci men Type: BLOOD SPECIMENOrdering Facility: [facility] Address: [address] [place] [address] Performed By: #### 5 7021-8 ####[facility] LABIA [id number] [place] [address] [place] Platelet mean volume (Bld) [Entitic vol] 9.0 fL Normal 9.0-12.[address] [facility] Comment on above: Order Comment: Speci men Type: BLOOD SPECIMENOrdering Facility: [facility] Address: [address] [place] [address] Performed By: #### 5 7021-8 ####[facility] LABIA [id number] [place] [address] [place] Platelets (Bld) [#/Vol] 258 10*3/uL Normal 150-[address] [facility] Comment on above: Order Comment: Speci men Type: BLOOD SPECIMENOrdering Facility: [facility] Address: [address] [place] [address] Performed By: #### 5 7021-8 ####[facility] LABIA [id number] [address] RBC (Bld) [#/Vol] 4.83 10*6/uL Normal 4.20-6.00 [facility] Comment on above: Order Comment: Speci men Type: BLOOD SPECIMENOrdering Facility: [facility] Address: [address] [place] [address] Performed By: #### 5 7021-8 ####[facility] LABCLIA [id number] [place] [address] [facility] WBC (Bld) [#/Vol] 6.68 10*3/uL Normal 3.70-11.00 [facility] Comment on above: Order Comment: Speci men Type: BLOOD SPECIMENOrdering Facility: [facility] Address: [address] [place] [address] Performed By: #### 5 7021-8 ####[facility] LABCLIA [id number] [address] CNOVon 11-23-2023 CNOV Office Visit (GENSAM ) REHAN MONET ([id number]) 1975 M Date Time Provider Department 11/23/23 10:20 AM SOHAM LEONARD GENSAM During your visit today, we recorded the [...] HX; Left No date: TOOTH EXTRACTION Comment: Kamas Teeth MEDICATIONS: Current Outpatient Medications: colchicine 0.6 [...] today's visit: No new labs SIGNATURE: Aretha Cornell RN PATIENT NAME: Rehan Monet DATE: November 23, 2023 TIME: 10:32 AM DO Kody Stoll Daisy 11/24/2023 11:45 AM Signed Addended by: RM SIEGEL on: 11/24/2023 11:45 AM Modules accepted: Orders Allergies As of Date: 11/23/2023 (No Known Allergies) Date Reviewed: 11/23/2023 Reviewed by: Michaela Jin LPN - Fully Assessed Reason for Visit: Consult [502] Cmt: Patient here to discuss left inguinal hernia. P (more content not included)... Normal [facility] Amelie 11-23-2023 [facility] Telephone (DDQ) REHAN MONET ([id number]) 1975 M Date Time Provider Department 11/23/23 SOHAM LEONARD During your visit today, we recorded the following information about you: Gates Rm Hsu 11/23/2023 11:36 AM Signed GatesRm Mehta 11/23/2023 3:26 PM Signed Tried calling patient, lmovm to return my call at [phone] option 5. Thank you. Kody Jazlyn Hsusy 11/24/2023 11:48 AM Addendum Patient called back, surgery scheduled on 12/05/[address] [facility], pt req AM if poss Lap [...] foot [M79.675] 10/21/2023 Encounter Status:Closed by RM SIEGEL on 11/23/[address] [facility] Comprehensive metabolic 2000 panelon 11-23-2023 Albumin [Mass/Vol] 4.3 g/dL Normal 3.9-4.9 [facility] Comment on above: Order Comment: Speci men Type: BLOOD SPECIMENOrdering Facility: [facility] Address: [address] [place] [address] Performed By: #### 2 4323-8, 3083-03 ####AMHROSALIE [facility] [id number] [place] [address] [place] ALP [Catalytic activity/Vol] 54 U/L Normal 38-[address] [facility] Comment on above: Order Comment: Speci men Type: BLOOD SPECIMENOrdering Facility: [facility] Address: [address] [place], [place] [id number] Performed By: #### 2 4323-8, 3083- ####SUNDAR [facility] [id number] [place] [address] [place] ALT [Catalytic activity/Vol] 24 U/L Normal 10-[address] [facility] Comment on above: Order Comment: Speci men Type: BLOOD SPECIMENOrdering Facility: [facility] Address: [address] [place] [address] Performed By: #### 2 4323-8, 3083-03 ####SUNDAR [facility] [id number] [place] [address] [place] Anion gap [Moles/Vol] 4 mmol/L Low 8-[address] [facility] Comment on above: Order Comment: Speci men Type: BLOOD SPECIMENOrdering Facility: [facility] Address: [address] [place] [address] Performed By: #### 2 4323-8, 3083- ####SUNDAR [facility] [id number] [place] [address] [place] AST [Catalytic activity/Vol] 21 U/L Normal 14-[address] [facility] Comment on above: Order Comment: Speci men Type: BLOOD SPECIMENOrdering Facility: [facility] Address: [address] [place], [place] [address] Performed By: #### 2 4323-8, 308- ####AMHERSRima [facility] [id number] [place] [address] [place] Bilirubin [Mass/Vol] 0.8 mg/dL Normal 0.2-1.3 [facility] Comment on above: Order Comment: Speci men Type: BLOOD SPECIMENOrdering Facility: [facility] Address: [address] [place] [address] Performed By: #### 2 4323-8, 3083-03 ####SUNDAR [facility] [id number] [place] [address] [place] Calcium [Mass/Vol] 8.9 mg/dL Normal 8.5-10.2 [facility] Comment on above: Order Comment: Speci men Type: BLOOD SPECIMENOrdering Facility: [facility] Address: [address] [id number] Performed By: #### 2 4323-8, 3083-03 ####SUNDAR [facility] [id number] [place] [address] [place] Chloride [Moles/Vol] 104 mmol/L Normal 98-107 [facility] Comment on above: Order Comment: Speci men Type: BLOOD SPECIMENOrdering Facility: [facility] Address: [address] [id number] Performed By: #### 2 4323-8, 3083-03 ####SUNDAR [facility] [id number] [place] [address] [place] CO2 [Moles/Vol] 30 mmol/L Normal 22-[address] [facility] Comment on above: Order Comment: Speci men Type: BLOOD SPECIMENOrdering Facility: [facility] Address: [address] [id number] Performed By: #### 2 4323-8, 3083-03 ####SUNDAR [facility] [id number] [place] [address] [place] Creatinine [Mass/Vol] 1.28 mg/dL High 0.73-1.[address] [facility] Comment on above: Order Comment: Speci men Type: BLOOD SPECIMENOrdering Facility: [facility] Address: [address] [id number] Performed By: #### 2 4323-8, 3083- ####SUNDAR [facility] [id number] [place] [address] [place] Creatinine and Glomerular filtration rate.predicted panel (S/P/Bld) 69 mL/min/1.73m??? Normal >=[address] [facility] Comment on above: Order Comment: Idalmis castro Type: BLOOD SPECIMENOrdering Facility: [facility] Address: [address] [place] [address] Result Comment: Karon mated Glomerular Filtration Rate [...] actual GFR. Performed By: #### 2 4323-8, 3083-1 ####AMHERST [facility]IA [id number] [place] [address] [place] Glucose [Mass/Vol] 96 mg/dL Normal 74-99 [facility] Comment on above: Order Comment: Idalmis castro Type: BLOOD SPECIMENOrdering Facility: [facility] Address: [address] [place] [address] Result Comment: The [place] Diabetes Association (ADA) provides guidance for cutoff [...] Standards of Medical Care in Diabetes 2016, [place] Diabetes Association. Diabetes Care. 2016.39(Suppl 1). Performed By: #### 2 4323-8, 3084-1 ####AMHERST [facility] [id number] [place] [address] [place] Potassium [Moles/Vol] 4.3 mmol/L Normal 3.7-5.[address] [facility] Comment on above: Order Comment: Speci men Type: BLOOD SPECIMENOrdering Facility: [facility] Address: [address] [place] [address] Performed By: #### 2 4323-8, 3083- ####SUNDAR [facility] [id number] [place] [address] [place] Protein [Mass/Vol] 6.3 g/dL Normal 6.3-8.0 [facility] Comment on above: Order Comment: Speci men Type: BLOOD SPECIMENOrdering Facility: [facility] Address: [address] [place] [address] Performed By: #### 2 4323-8, 3083-03 ####SUNDAR [facility] [id number] [place] [address] [place] Sodium [Moles/Vol] 138 mmol/L Normal 136-144 [facility] Comment on above: Order Comment: Speci men Type: BLOOD SPECIMENOrdering Facility: [facility] Address: [address] [place] [address] Performed By: #### 2 4323-8, 3083-03 ####SUNDAR [facility] [id number] [place] [address] [place] Urea nitrogen [Mass/Vol] 16 mg/dL Normal 9-[address] [facility] Comment on above: Order Comment: Speci men Type: BLOOD SPECIMENOrdering Facility: [facility] Address: [address] [place], [place] [phone] Performed By: #### 2 4323-8, 3083-03 ####SUNDAR [facility] [id number] [place] [address] [place] HISTORY PHYSICALon HISTORY PHYSICAL HNO ID: [id number] Author: SOHAM LEONARD, DO Service: ? Author [...] HX; Left No date: TOOTH EXTRACTION Comment: Kamas Teeth MEDICATIONS: Current Outpatient Medications: colchicine 0.6 [...] today's visit: No new labs SIGNATURE: Aretha Cornell RN PATIENT NAME: Rehan Monet DATE: November 23, 2023 TIME: 10:32 AM Park Leonard, DO Normal [facility] Urate [Mass/Vol] 7.1 mg/dL Normal 4.0-8.1 Tahmina zuleta Replaced By [facility] Comment on above: Order Comment: Speci men Type: BLOOD SPECIMENOrdering Facility: [facility] Address: [address] [place] [address] Performed By: #### 2 4323-8, 3084-1 ####AMHERST [facility] [id number] [place] [id number] [facility] Amelie 10-24-2023 CNPN Telephone (RHARMN) REHAN MONET ([id number]) 1975 M Date Time Provider Department 10/24/23 LISETTE FRAZIER ARMBran During your visit today, we recorded the [...] BLOOD COUNT AND DIFFERENTIAL [SQCBCDIF] Order #: [id number] FUTURE COMPREHENSIVE METABOLIC PANEL [SQCMP] Order #: [id number] FUTURE URIC ACID [SQURIC] Order #: [id number] FUTURE Prescriptions as of 11/16/2023 - allopurinol [...] Status:Closed by LISETTE FRAZIER on 10/24/[address] [facility] C-REACTIVE PROTEINon 024 CRP [Mass/Vol] mg/dL [facility] - 0.9 mg/dL [facility] CBC W Auto Differential pane l (Bld)on 10-21-2023 Basophils (Bld) [#/Vol] 0.07 10*3/uL [facility] Basophils/100 WBC (Bld) 0.9 % [facility] Differential cell count method Nom (Bld) Auto [facility] Eosinophils (Bld) [#/Vol] 0.23 10*3/uL [facility] Eosinophils/100 WBC (Bld) 3.0 % [facility] Erythrocyte distribution width (RBC) [Ratio] 12.4 % 11.5 - 15.0 % [facility] Hematocrit (Bld) [Volume fraction] 44.7 % 39.0 - 51.0 % [facility] Hemoglobin (Bld) [Mass/Vol] 15.1 g/dL 13.0 - 17.0 g/dL [facility] Immature granulocytes (Bld) [#/Vol] 0.18 10*3/uL High [facility] Immature granulocytes/100 WBC (Bld) 2.3 % [facility] Interpretation and review of laboratory results Abnormal [facility] Lymphocytes (Bld) [#/Vol] 2.49 10*3/uL [facility] Lymphocytes/100 WBC (Bld) 32.5 % [facility] MCH (RBC) [Entitic mass] 29.5 pg 26.0 - 34.0 pg [facility] MCHC (RBC) [Mass/Vol] 33.8 g/dL 30.5 - 36.0 g/dL [facility] MCV (RBC) [Entitic vol] 87.5 fL 80.0 - 100.0 fL [facility] Monocytes (Bld) [#/Vol] 0.66 10*3/uL [facility] Monocytes/100 WBC (Bld) 8.6 % [facility] Neutrophils (Bld) [#/Vol] 4.03 10*3/uL [facility] Neutrophils/100 WBC (Bld) 52.7 % [facility] Nucleated RBC (Bld) [#/Vol] [facility] Nucleated RBC/100 WBC (Bld) [Ratio] 0.0 % /100 WBC [facility] Platelet mean volume (Bld) [Entitic vol] 9.2 fL 9.0 - 12.7 fL [facility] Platelets (Bld) [#/Vol] 291 10*3/uL [facility] RBC (Bld) [#/Vol] 5.11 10*6/uL 4.20 - 6.0 0 m/uL [facility] WBC (Bld) [#/Vol] 7.66 10*3/uL [facility] Basophils (Bld) [#/Vol] 0.07 10*3/uL Normal <0.[address] [facility] Comment on above: Order Comment: Speci men Type: BLOOD SPECIMENOrdering Facility: [facility] Address: [address] [place] [address] Performed By: #### 5 7021-8, 886-7 ####[facility] LABCLIA [id number] [address] [place] Basophils/100 WBC (Bld) 0.9 % Normal [facility] Comment on above: Order Comment: Speci men Type: BLOOD SPECIMENOrdering Facility: [facility] Address: [address] [place] [address] Performed By: #### 5 7021-8, 4536-7 ####[facility] LABCLIA [id number] [place] [address] [place] Differential cell count method Nom (Bld) Auto Normal [facility] Comment on above: Order Comment: Speci men Type: BLOOD SPECIMENOrdering Facility: [facility] Address: [address] [place] [address] Performed By: #### 5 7021-8, 4536-7 ####[facility] LABCLIA [id number] [place] [address] [place] Eosinophils (Bld) [#/Vol] 0.23 10*3/uL Normal <0.[address] [facility] Comment on above: Order Comment: Speci men Type: BLOOD SPECIMENOrdering Facility: [facility] Address: [address] [place] [address] Performed By: #### 5 7021-8, 7 ####[facility] LABCLIA [id number] [place] [address] [place] Eosinophils/100 WBC (Bld) 3.0 % Normal [facility] Comment on above: Order Comment: Speci men Type: BLOOD SPECIMENOrdering Facility: [facility] Address: [address] [place] [address] Performed By: #### 5 7021-8, 4536-7 ####[facility] LABCLIA [id number] [place] [address] [place] Erythrocyte distribution width (RBC) [Ratio] 12.4 % Normal 11.5-15.[address] [facility] Comment on above: Order Comment: Speci men Type: BLOOD SPECIMENOrdering Facility: [facility] Address: [address] [place] [address] Performed By: #### 5 7021-8, 4536-7 ####[facility] LABCLIA [id number] [place] [address] [place] Hematocrit (Bld) [Volume fraction] 44.7 % Normal 39.0-51.[address] [facility] Comment on above: Order Comment: Speci men Type: BLOOD SPECIMENOrdering Facility: [facility] Address: [address] [place] [address] Performed By: #### 5 7021-8, 4536-7 ####[facility] LABCLIA [id number] [place] [address] [place] Hemoglobin (Bld) [Mass/Vol] 15.1 g/dL Normal 13.0-17.[address] [facility] Comment on above: Order Comment: Speci men Type: BLOOD SPECIMENOrdering Facility: [facility] Address: [address] [place] [address] Performed By: #### 5 7021-8, 7 ####[facility] LABCLIA [id number] [place] [address] [place] Immature granulocytes (Bld) [#/Vol] 0.18 10*3/uL High <0.[address] [facility] Comment on above: Order Comment: Speci men Type: BLOOD SPECIMENOrdering Facility: [facility] Address: [address] [place] [address] Performed By: #### 5 7021-8, 7 ####[facility] LABCLIA [id number] [place] [address] [place] Immature granulocytes/100 WBC (Bld) 2.3 % Normal [facility] Comment on above: Order Comment: Speci men Type: BLOOD SPECIMENOrdering Facility: [facility] Address: [address] [place] [address] Performed By: #### 5 7021-8, 7 ####[facility] LABCLIA [id number] [place] [address] [place] Lymphocytes (Bld) [#/Vol] 2.49 10*3/uL Normal 1.00-4.[address] [facility] Comment on above: Order Comment: Speci men Type: BLOOD SPECIMENOrdering Facility: [facility] Address: [address] [place] [address] Performed By: #### 5 7021-8, 4537-7 ####[facility] LABCLIA [id number] [place] [address] [place] Lymphocytes/100 WBC (Bld) 32.5 % Normal [facility] Comment on above: Order Comment: Speci men Type: BLOOD SPECIMENOrdering Facility: [facility] Address: [address] [place] [address] Performed By: #### 5 7021-8, 4536-7 ####[facility] LABCLIA [id number] [place] [address] [place] MCH (RBC) [Entitic mass] 29.5 pg Normal 26.0-34.[address] [facility] Comment on above: Order Comment: Speci men Type: BLOOD SPECIMENOrdering Facility: [facility] Address: [address] [place] [address] Performed By: #### 5 7021-8, 4536-7 ####[facility] LABIA [id number] [place] [address] [place] MCHC (RBC) [Mass/Vol] 33.8 g/dL Normal 30.5-36.[address] [facility] Comment on above: Order Comment: Speci men Type: BLOOD SPECIMENOrdering Facility: [facility] Address: [address] [place] [address] Performed By: #### 5 7021-8, 7-7 ####[facility] LABIA [id number] [place] [address] [place] MCV (RBC) [Entitic vol] 87.5 fL Normal 80.0-100.[address] [facility] Comment on above: Order Comment: Speci men Type: BLOOD SPECIMENOrdering Facility: [facility] Address: [address] [place] [address] Performed By: #### 5 7021-8, 4536-7 ####[facility] LABCLIA [id number] [place] [address] [place] Monocytes (Bld) [#/Vol] 0.66 10*3/uL Normal <0.[address] [facility] Comment on above: Order Comment: Speci men Type: BLOOD SPECIMENOrdering Facility: [facility] Address: [address] [place] [address] Performed By: #### 5 7021-8, 7 ####[facility] LABCLIA [id number] [place] [address] [place] Monocytes/100 WBC (Bld) 8.6 % Normal [facility] Comment on above: Order Comment: Speci men Type: BLOOD SPECIMENOrdering Facility: [facility] Address: [address] [place] [address] Performed By: #### 5 7021-8, 7 ####[facility] LABCLIA [id number] [place] [address] [place] Neutrophils (Bld) [#/Vol] 4.03 10*3/uL Normal 1.45-7.[address] [facility] Comment on above: Order Comment: Speci men Type: BLOOD SPECIMENOrdering Facility: [facility] Address: [address] [place] [address] Performed By: #### 5 7021-8, 7 ####[facility] LABCLIA [id number] [place] [address] [place] Neutrophils/100 WBC (Bld) 52.7 % Normal [facility] Comment on above: Order Comment: Speci men Type: BLOOD SPECIMENOrdering Facility: [facility] Address: [address] [place] [address] Performed By: #### 5 7021-8, 4536-7 ####[facility] LABCLIA [id number] [place] [address] [place] Nucleated RBC (Bld) [#/Vol] 10*3/uL Normal <0.[address] [facility] Comment on above: Order Comment: Speci men Type: BLOOD SPECIMENOrdering Facility: [facility] Address: [address] [place] [address] Performed By: #### 5 7021-8, 4537-7 ####[facility] LABCLIA [id number] [place] [address] [place] Nucleated RBC/100 WBC (Bld) [Ratio] 0.0 /100 WBC Normal [facility] Comment on above: Order Comment: Speci men Type: BLOOD SPECIMENOrdering Facility: [facility] Address: [address] [place] [address] Performed By: #### 5 7021-8, 4536-7 ####[facility] LABIA [id number] [place] [address] [place] Platelet mean volume (Bld) [Entitic vol] 9.2 fL Normal 9.0-12.[address] [facility] Comment on above: Order Comment: Speci men Type: BLOOD SPECIMENOrdering Facility: [facility] Address: [address] [place] [address] Performed By: #### 5 7021-8, 7-7 ####[facility] LABIA [id number] [place] [address] [place] Platelets (Bld) [#/Vol] 291 10*3/uL Normal 150-[address] [facility] Comment on above: Order Comment: Speci men Type: BLOOD SPECIMENOrdering Facility: [facility] Address: [address] [place] [address] Performed By: #### 5 7021-8, 7-7 ####[facility] LABCLIA [id number] [place] [address] [place] RBC (Bld) [#/Vol] 5.11 10*6/uL Normal 4.20-6.00 [facility] Comment on above: Order Comment: Speci men Type: BLOOD SPECIMENOrdering Facility: [facility] Address: [address] [place] [address] Performed By: #### 5 7021-8, 4537-7 ####[facility] LABCLIA [id number] [place] [address] [place] WBC (Bld) [#/Vol] 7.66 10*3/uL Normal 3.70-11.00 [facility] Comment on above: Order Comment: Speci men Type: BLOOD SPECIMENOrdering Facility: [facility] Address: [address] [place] [address] Performed By: #### 5 7021-8, 4537-7 ####[facility] LABCLIA [id number] [address] OF [place] CNOVon 10-21-2023 CNOV Office Visit (RHEUMN ) CHIKIREHAN ([id number]) 1975 M Date Time Provider Department 10/21/23 8:00 AM LISETTE FRAZIER RHEUMN During your visit today, we recorded the following information about you: Temperature Pulse Blood pressure Height 97.5 degrees 66/minute 153/96 1.778 m Lisette Frazier MD 10/21/2023 10:34 AM Addendum Rheumatology CONSULTATION Date of Service: 10/21/2023 Patient: Rehan Monet Medical Record: [id number] Primary Care Physician: Kirby Best DO Last Rheumatology visit: 10/21/2023 (with Lisette [...] Left TESTICLE SURGERY HX Left TOOTH EXTRACTION Kamas Teeth Family History FAMILY HISTORY Problem Relatio (more content not included)... Normal [facility] CRP SerPl-ncon 10-21-2023 CRP [Mass/Vol] mg/L Normal <0.[address] [facility] Comment on above: Order Comment: Speci men Type: BLOOD SPECIMENOrdering Facility: [facility] Address: [address] [place] [address] Performed By: #### 1 988-5, 1764-1, 71206-6 ####[facility] LABCLIA [id number] [place] [address] [place] CRP [Mass/Vol]on 10-21-2023 Interpretation and review of laboratory results Normal [facility] Comprehensive metabolic 2000 panelon 10-21-2023 Albumin [Mass/Vol] 4.4 g/dL 3.9 - 4.9 g/dL [facility] ALP [Catalytic activity/Vol] 65 U/L 38 - 113 U/L [facility] ALT [Catalytic activity/Vol] 27 U/L 10 - 54 U/L [facility] Anion gap [Moles/Vol] 12 mmol/L 8 - 15 mmol/L [facility] AST [Catalytic activity/Vol] 27 U/L 14 - 40 U/L [facility] Bilirubin [Mass/Vol] 0.5 mg/dL 0.2 - 1 .3 mg/dL [facility] Calcium [Mass/Vol] 9.1 mg/dL 8.5 - 10. 2 mg/dL [facility] Chloride [Moles/Vol] 100 mmol/L 98 - 10 7 mmol/L [facility] CO2 [Moles/Vol] 25 mmol/L 22 - 30 mmol/L [facility] Creatinine [Mass/Vol] 1.30 mg/dL High 0.73 - 1.22 mg/dL [facility] GFR/1.73 sq M.predicted among non-blacks MDRD (S/P/Bld) [Vol rate/Area] 67 mL/min/{1.73_m2} - PINF [facility] Comment on above: Estimated Glomerular Filtration Rate [...] [Mass/Vol] 93 mg/dL 74 - 99 mg/dL [facility] Comment on above: The [place] Diabete s Association (ADA) provides guidance for [...] Standards of Medical Care in Diabetes 2016, [place] Diabetes [employer]. Diabetes Care. 2016.39(Suppl 1). Potassium [Moles/Vol] 4.2 mmol/L 3.7 - 5.1 mmol/L [facility] Protein [Mass/Vol] 6.6 g/dL 6.3 - 8.0 g/dL [facility] Sodium [Moles/Vol] 137 mmol/L 136 - 144 mmol/L [facility] Urea nitrogen [Mass/Vol] 19 mg/dL 9 - 24 mg/dL [facility] Albumin [Mass/Vol] 4.4 g/dL Normal 3.9-4.9 [facility] Comment on above: Order Comment: Speci men Type: BLOOD SPECIMENOrdering Facility: [facility] Address: [address] [place] [address] Performed By: #### 1 988-5, 3084-1, 47088-6 ####[facility] LABIA [id number] [place] [address] [place] ALP [Catalytic activity/Vol] 65 U/L Normal 38-[address] [facility] Comment on above: Order Comment: Speci men Type: BLOOD SPECIMENOrdering Facility: [facility] Address: [address] [id number] Performed By: #### 1 988-5, 3084-1, 51249-9 ####[facility] LABIA [id number] [place] [address] [place] ALT [Catalytic activity/Vol] 27 U/L Normal 10-[address] [facility] Comment on above: Order Comment: Speci men Type: BLOOD SPECIMENOrdering Facility: [facility] Address: [address] [place] [address] Performed By: #### 1 988-5, 3084-1, 85745-0 ####[facility] LABCLIA [id number] [address] [address] [place] Anion gap [Moles/Vol] 12 mmol/L Normal 8-[address] [facility] Comment on above: Order Comment: Speci men Type: BLOOD SPECIMENOrdering Facility: [facility] Address: [address] [place], [place] [address] Performed By: #### 1 988-5, 308-, ####[facility] LABIA [id number] [place] [address] [place] AST [Catalytic activity/Vol] 27 U/L Normal 14-[address] [facility] Comment on above: Order Comment: Speci men Type: BLOOD SPECIMENOrdering Facility: [facility] Address: [address] [place], [place] [id number] Performed By: #### 1 988-5, 30806-26, ####[facility] LABIA [id number] [place] [address] [place] Bilirubin [Mass/Vol] 0.5 mg/dL Normal 0.2-1.3 [facility] Comment on above: Order Comment: Speci men Type: BLOOD SPECIMENOrdering Facility: [facility] Address: [address] [place] [address] Performed By: #### 1 988-5, 30806-26, ####[facility] LABIA [id number] [address] [address] [place] Calcium [Mass/Vol] 9.1 mg/dL Normal 8.5-10.2 [facility] Comment on above: Order Comment: Speci men Type: BLOOD SPECIMENOrdering Facility: [facility] Address: [address] [place] [address] Performed By: #### 1 988-5, 30806-26, ####[facility] LABIA [id number] [address] [address] [place] Chloride [Moles/Vol] 100 mmol/L Normal 98-107 [facility] Comment on above: Order Comment: Speci men Type: BLOOD SPECIMENOrdering Facility: [facility] Address: [address] [place] [address] Performed By: #### 1 988-5, 30806-26, ####[facility] LABIA [id number] [address] [address] [place] CO2 [Moles/Vol] 25 mmol/L Normal 22-[address] [facility] Comment on above: Order Comment: Speci men Type: BLOOD SPECIMENOrdering Facility: [facility] Address: [address] [place] [address] Performed By: #### 1 988-5, 30806-26, ####[facility] LABIA [id number] [address] [address] [place] Creatinine [Mass/Vol] 1.30 mg/dL High 0.73-1.[address] [facility] Comment on above: Order Comment: Speci men Type: BLOOD SPECIMENOrdering Facility: [facility] Address: [address] [place] [address] Performed By: #### 1 988-5, 30806-26, 98995-5 ####[facility] [id number] [address] [address] [place] Creatinine and Glomerular filtration rate.predicted panel (S/P/Bld) 67 mL/min/1.73m??? Normal >=[address] [facility] Comment on above: Order Comment: Speci men Type: BLOOD SPECIMENOrdering Facility: [facility] Address: [address] [place] [address] Result Comment: Karon mated Glomerular Filtration Rate [...] actual GFR. Performed By: #### 1 988-5, 30806-26, ####[facility] LABCLIA [id number] [address] [address] [place] Glucose [Mass/Vol] 93 mg/dL Normal 74-99 [facility] Comment on above: Order Comment: Speci gloria Type: BLOOD SPECIMENOrdering Facility: [facility] Address: [address] [place] [address] Result Comment: The [place] Diabetes Association (ADA) provides guidance for cutoff [...] Standards of Medical Care in Diabetes 2016, [place] [employer]. Diabetes Care. 2016.39(Suppl 1). Performed By: #### 1 988-5, 3083-03, ####[facility] LABCLIA [id number] [place] [id number] [place] Potassium [Moles/Vol] 4.2 mmol/L Normal 3.7-5.[address] [facility] Comment on above: Order Comment: Idalmis castro Type: BLOOD SPECIMENOrdering Facility: [facility] Address: [address] [id number] Performed By: #### 1 988-5, 30806-26, ####[facility] LABCLIA [id number] [place] [address] [place] Protein [Mass/Vol] 6.6 g/dL Normal 6.3-8.0 [facility] Comment on above: Order Comment: Speci men Type: BLOOD SPECIMENOrdering Facility: [facility] Address: [address] [place] [address] Performed By: #### 1 988-5, 3084-1, 26299-7 ####[facility] LABIA [id number] [place] [address] [place] Sodium [Moles/Vol] 137 mmol/L Normal 136-144 [facility] Comment on above: Order Comment: Speci men Type: BLOOD SPECIMENOrdering Facility: [facility] Address: [address] [place] [address] Performed By: #### 1 988-5, 3084-1, 44059-5 ####[facility] LABIA [id number] [place] [address] [place] Urea nitrogen [Mass/Vol] 19 mg/dL Normal 9-[address] [facility] Comment on above: Order Comment: Speci men Type: BLOOD SPECIMENOrdering Facility: [facility] Address: [address] [place] [address] Performed By: #### 1 988-5, 3084-1, 48180-6 ####[facility] LABIA [id number] [place] [address] [place] ESR Westergren method (Bld) [Velocity]on 10-21-2023 ESR (Bld) [Velocity] 2 mm/h [facility] Interpretation and review of laboratory results Normal [facility] ESR (Bld) [Velocity] 2 mm/h Normal 0-15 [facility] Comment on above: Order Comment: Speci men Type: BLOOD SPECIMENOrdering Facility: [facility] Address: [address] [place] [address] Performed By: #### 5 7021-8, 4537-7 ####[facility] LABCLIA [id number] [place] [id number] [place] No Panel Informationon 10-20 Interpretation and review of laboratory results Abnormal [facility] URIC ACIDon 10-21-2023 Urate [Mass/Vol] 9.7 mg/dL High 4.0 - 8.1 mg/dL [facility] Urate SerPl-mCncon Urate [Mass/Vol] 9.7 mg/dL High 4.0-8.1 [facility] By [facility] Comment on above: Order Comment: Speci men Type: BLOOD SPECIMENOrdering Facility: [facility] Address: [address] [place] [address] Performed By: #### 1 988-5, 3084-1, 82638-5 ####[facility] LABCLIA [id number] [place] [address] [place] [address] [address] soft tissue neck w conon 04-01-2022 CT soft tissue neck w con [facility] [address] CT Scan Report Signed Patient: Rehan Monet MR#: [id number] 08 : 1975 Acct:[id number] Age/Sex: 46 / M ADM Date: 04/01/22 Loc: CT Room: Type: [facility] Attending Dr: Alon Head DO Copies to: Alon Head DO Ordering Provider: Alon Head DO [...] Liborio Goins M.D.04/01/2022 3:24 PM Dictation Location: [place] [address] Transcribed By: [facility] 04/01/22 1524 Dictated By: Liborio Goins II, MD 04/01/22 1518 Signed By: 04/01/[address] [facility] XR HIP LT 2 3V W PELVISon [...] by: ALON MILES Date: 2021-04-06 18:45 Normal [facility] MRI NECK WO W CONon 12-24-19 21 MRI NECK WO W CON MRI NECK WITH AND WITHOUT CONTRAST, 12/23/2020. HISTORY: Pain on left side of neck anteriorly. COMPARISON: None. TECHNIQUE: Axial T1, T2, T2 fat-saturation, sagittal T1, coronal T1, T2, T2 fat-saturation, postcontrast axial and coronal T1 fat-saturation images were obtained. 17 mL Dotarem. FINDINGS: Crystal Slicer spaces normal. Parotid glands appear normal. Submandibular [...] of the neck. Electronically authenticated by: TIAGO CLRAK Date: 2020-12-23 15:39 Normal [facility] CBC AUTO DIFFon 12-04-2020 BASO # 0.1 103/ul Normal 0.0-0.1 [facility] Comment on above: Performed By: #### C BC #### [facility] [address] [place] [address] Yolie Keira Basophils/100 WBC (Bld) 0.5 % Normal 0.2-2.0 [facility] Comment on above: Performed By: #### C BC #### [facility] [address] [place] [address] Yolie Keira EO # 0.2 103/ul Normal 0.0-0.7 [facility] Comment on above: Performed By: #### C BC #### [facility] [address] [place] [address] Yolie Keira Eosinophils/100 WBC (Bld) 2.5 % Normal 0.9-7.0 [facility] Comment on above: Performed By: #### C BC #### [facility] [address] [place] [address] Yolie Keira Erythrocyte distribution width (RBC) [Ratio] 12.2 % Normal 11.0-15.0 [facility] Comment on above: Performed By: #### C BC #### [facility] [address] [place] [address] Yolie Keira Hematocrit (Bld) [Volume fraction] 45.7 % Normal 42.0-54.0 [facility] Comment on above: Performed By: #### C BC #### [facility] [address] [phone] Yolie Keira Hemoglobin (Bld) [Mass/Vol] 15.4 g/dL Normal 14.0-18.0 [facility] Comment on above: Performed By: #### C BC #### [facility] [address] [place], [place] [phone] Yolie Keira IG # 0.04 10e3/ul Critically high 0.00-0.03 [facility] Comment on above: Performed By: #### C BC #### [facility] [address] [place] [address] Yolie Keira IG % 0.4 % Normal 0.0-0.5 [facility] Comment on above: Performed By: #### C BC #### [facility] [address] [place] [address] Yolie Keira LYMPH # 2.0 103/ul Normal 1.2-3.8 [facility] Comment on above: Performed By: #### C BC #### [facility] [address] [place] [address] Yolie Keira Lymphocytes/100 WBC (Bld) 22.0 % Normal 20.5-60.0 [facility] Comment on above: Performed By: #### C BC #### [facility] [address] [place], [place] [phone] Yolie Keira MANUAL DIFF REQ NO Normal [facility] Comment on above: Performed By: #### C BC #### [facility] [address] [place], [place] [phone] Yolie Keira MCH (RBC) [Entitic mass] 30.3 pg Normal 25.9-34.0 [facility] Comment on above: Performed By: #### C BC #### [facility] [address] [place] [address] Yolie Keira MCHC (RBC) [Mass/Vol] 33.7 g/dL Normal 29.9-35.2 [facility] Comment on above: Performed By: #### C BC #### [facility] [address] [place] [address] Yolie Keira MCV (RBC) [Entitic vol] 90.0 fL Normal 80.0-94.0 [facility] Comment on above: Performed By: #### C BC #### [facility] [address] [place], [place] [phone] Yolie Crockett MONO # 0.8 103/ul Normal 0.3-0.8 [facility] Comment on above: Performed By: #### C BC #### [facility] [address] [place], [place] [phone] Yolie Crockett Monocytes/100 WBC (Bld) 9.0 % Normal 1.7-12.0 [facility] Comment on above: Performed By: #### C BC #### [facility] [address] [place] [address] Yolie Crockett NEUT # 6.1 103/ul Normal 1.4-6.5 [facility] Comment on above: Performed By: #### C BC #### [facility] [address] [place] [address] Yolie Crockett Neutrophils/100 WBC (Bld) 65.6 % Normal 43.0-75.0 [facility] Comment on above: Performed By: #### C BC #### [facility] [address] [place], [place] [phone] Yolie Crockett Platelet mean volume (Bld) [Entitic vol] 9.2 fL Critically low 9.5-13.5 [facility] Comment on above: Performed By: #### C BC #### [facility] [address] [place] [address] Yolie Crockett PLT 259 103/ul Normal 150-450 [facility] Comment on above: Performed By: #### C BC #### [facility] [address] [place], [place] [phone] Yolieeugenio Crockett RBC 5.08 106/ul Normal 4.70-6.10 [facility] Comment on above: Performed By: #### C BC #### [facility] [address] [place] [address] Yolie Keira WBC 9.3 103/ul Normal 4.0-11.0 [facility] Comment on above: Performed By: #### C BC #### [facility] [address] [place], [place] [address] Yolie Keira CRPon 12-04-2020 CRP [Mass/Vol] mg/L Normal <=1.0 [facility] Comment on above: Performed By: #### B MP, CRP #### [facility] [address] [place], [place] [address] HEAD WO CONon 12-04-2020 [...] RONN PITTMAN Date: 2020-12-04 10:14 Normal [facility] PROF CHEM 8 (BAS METB)on Anion gap [Moles/Vol] 11.0 mmol/L Normal [facility] Comment on above: Performed By: #### B MP, CRP #### [facility] [address] [phone] Yolie Keira Calcium [Mass/Vol] 9.3 mg/dL Normal 8.4-10.2 [facility] [place] Comment on above: Performed By: #### B MP, CRP #### [facility] [address] [place], [place] [address] Yolie Keira Chloride [Moles/Vol] 105 mmol/L Normal 98-107 [facility] Comment on above: Performed By: #### B MP, CRP #### [facility] [address] [place], [place] [address] Yolie Keira CO2 [Moles/Vol] 30.5 mmol/L Critically high 22.0-30.0 [facility] Comment on above: Performed By: #### B MP, CRP #### [facility] [address] [address] Yolie Keira Creatinine [Mass/Vol] 1.27 mg/dL Critically high 0.66-1.25 [facility] Comment on above: Performed By: #### B MP, CRP #### [facility] [address] [phone] Yolie Keira EGFR-AF MAURITIAN >60 Normal >=60 [facility] [place] Comment on above: Performed By: #### B MP, CRP #### [facility] [address] [address] Yolie Keira EGFR-NON AF MAURITIAN >60 Normal >=60 [facility] Comment on above: Performed By: #### B MP, CRP #### [facility] [address] [address] Yolie Keira Glucose [Mass/Vol] 104 mg/dL Normal 74-106 [facility] [place] Comment on above: Performed By: #### B MP, CRP #### [facility] [address] [address] Yolie Keira Potassium [Moles/Vol] 4.5 mmol/L Normal 3.4-5.0 [facility] Comment on above: Performed By: #### B MP, CRP #### [facility] [address] [address] Yolie Keira Sodium [Moles/Vol] 142 mmol/L Normal 137-145 [facility] [place] Comment on above: Performed By: #### B MP, CRP #### [facility] [address] [address] Yolie Keira Urea nitrogen [Mass/Vol] 17.0 mg/dL Normal 9.0-20.0 [facility] Comment on above: Performed By: #### B MP, CRP #### [facility] [address] [address] Yolie Keira Urea nitrogen/Creatinine [Mass ratio] 13.4 mg/mg Normal [facility] Comment on above: Performed By: #### B MP, CRP #### [facility] [address] [address] Yolie Crockett SED RATE WESTERGRENon 2020 SED RATE 9 mm/hr Normal <=15 [facility] Comment on above: Performed By: #### S EDR #### [facility] [address] [address] Yolie Crockett XR CSPINE 2_3 VIEWSon 2020 XR [...] RONN PITTMAN Date: 2020-12-04 11:37 Normal [facility] XR SHOULDER GENERAL 3V OR MO RE AP/TRUE AP/OTHER LTon 04-17-2020 [facility] Vital Signs Date Time Vital Sign Value Performing Clinician Facility 04-02-2024 13:47-0500 Body height 177.8 cm [facility] 04-02-2024 13:47-0500 Body mass index (BMI) [Ratio] 26.9 kg/m2 [facility] 04-02-2024 13:47-0500 Body temperature 97.3 [degF] [facility] 04-02-2024 13:47-0500 Body weight 85.27 kg [facility] 04-02-2024 13:47-0500 Diastolic blood pressure 98 mm[Hg] [facility] 04-02-2024 13:47-0500 Heart rate 68 /min [facility] 04-02-2024 13:47-0500 SaO2% (BldA) [Mass fraction] 98 % [facility] 04-02-2024 13:47-0500 Systolic blood pressure 138 mm[Hg] [facility] 11-25-2023 07:44-0400 Body height 177.8 cm Pacc 1 Work Phone: [facility] 11-25-2023 07:44-0400 Body mass index (BMI) [Ratio] 27.66 kg/m2 Pacc 1 Work Phone: [facility] 11-25-2023 07:44-0400 Body temperature 97.5 [degF] Pacc 1 Work Phone: [facility] 11-25-2023 07:44-0400 Body weight 87.45 kg Pacc 1 Work Phone: [facility] 11-25-2023 07:44-0400 Diastolic blood pressure 94 mm[Hg] Pacc 1 Work Phone: [facility] 11-25-2023 07:44-0400 Heart rate 67 /min Pacc 1 Work Phone: [facility] 11-25-2023 07:44-0400 SaO2% (BldA) [Mass fraction] 100 % Pacc 1 Work Phone: [facility] 11-25-2023 07:44-0400 Systolic blood pressure 153 mm[Hg] Pacc 1 Work Phone: [facility] 11-23-2023 10:16-0400 Body height 177.8 cm Park-Bharathi Leonard DO Work Phone: [facility] 11-23-2023 10:16-0400 Body mass index (BMI) [Ratio] 27.11 kg/m2 Park-Bharathi Leonard DO Work Phone: [facility] 11-23-2023 10:16-0400 Body weight 85.7 kg Park-Bharathi Leonard DO Work Phone: [facility] 11-23-2023 10:16-0400 Diastolic blood pressure 83 mm[Hg] Park-Bharathi Leonard DO Work Phone: [facility] 11-23-2023 10:16-0400 Heart rate 67 /min Park-Bharathi Leonard DO Work Phone: [facility] 11-23-2023 10:16-0400 Systolic blood pressure 135 mm[Hg] Soham Leonard DO Work Phone: [facility] 10-21-2023 08:08-0400 Body height 177.8 cm Lisette Frazier MD Work Phone: [facility] 10-21-2023 08:08-0400 Body temperature 97.5 [degF] Lisette Frazier MD Work Phone: [facility] 10-21-2023 08:08-0400 Diastolic blood pressure 96 mm[Hg] Lisette Frazier MD Work Phone: [facility] 10-21-2023 08:08-0400 Heart rate 66 /min Lisette Frazier MD Work Phone: [facility] 10-21-2023 08:08-0400 Systolic blood pressure 153 mm[Hg] Lisette Frazier MD Work Phone: [facility] 11-17-2022 15:00-0400 Body height 177.8 cm Alon Head Other [facility] Other 11-17-2022 15:00-0400 Body mass index (BMI) [Ratio] 25.82 kg/m2 Alon Head Other [facility] Other 11-17-2022 15:00-0400 Body weight 81.65 kg Alon Head Other [facility] Other 11-17-2022 15:00-0400 Diastolic blood pressure 88 mm[Hg] Alon Head Other [facility] Other 11-17-2022 15:00-0400 Respiratory rate 18 /min Alon Head Other [facility] Other 11-17-2022 15:00-0400 SaO2% (BldA) [Mass fraction] 98 % Alon Head Other [facility] Other 11-17-2022 15:00-0400 Systolic blood pressure 134 mm[Hg] Alon Head Other [facility] Other 08-30-2022 16:40-0400 Body height 177.8 cm Alon Head Other [facility] Other 08-30-2022 16:40-0400 Body mass index (BMI) [Ratio] 26.25 kg/m2 Alon Head Other [facility] Other 08-30-2022 16:40-0400 Body temperature 98.6 [degF] Alon Head Other [facility] Other 08-30-2022 16:40-0400 Body weight 83.01 kg Alon Head Other [facility] Other 08-30-2022 16:40-0400 Diastolic blood pressure 84 mm[Hg] Alon Head Other [facility] Other 08-30-2022 16:40-0400 Respiratory rate 18 /min Alon Head Other [facility] Other 08-30-2022 16:40-0400 SaO2% (BldA) [Mass fraction] 99 % Alon Head Other [facility] Other 08-30-2022 16:40-0400 Systolic blood pressure 138 mm[Hg] Alon Head Other [facility] Other 08-18-2021 10:15-0400 Body height 177.8 cm Alon Bellamy Other [facility] Other 08-18-2021 10:15-0400 Body mass index (BMI) [Ratio] 26.83 kg/m2 Alon Josesito Other [facility] Other 08-18-2021 10:15-0400 Body temperature 98.6 [degF] Alon Josesito Other [facility] Other 08-18-2021 10:15-0400 Body weight 84.82 kg Alon Josesito Other [facility] Other 08-18-2021 10:15-0400 Diastolic blood pressure 84 mm[Hg] Alon Josesito Other [facility] Other 08-18-2021 10:15-0400 SaO2% (BldA) [Mass fraction] 99 % Alon Josesito Other [facility] Other 08-18-2021 10:15-0400 Systolic blood pressure 146 mm[Hg] Alon Josesito Other [facility] Other Encounters Encounter Date Encounter Type Care Provider Facility Start: 12-03-2024 End: 12-03-2024 Refill Lisette Frazier MD Work Phone: Rheumatology Comment on above: Refill Request Start: 09-25-2024 End: 09-25-2024 Refill Lisette Frazier MD Work Phone: Rheumatology Comment on above: Refill Request Start: 08-07-2024 End: 08-07-2024 Refill Lisette Frazier MD Work Phone: Rheumatology Comment on above: Refill Request Start: 06-08-2024 End: 06-08-2024 Refill Lisette Frazier MD Work Phone: Rheumatology Comment on above: Refill Request Start: 06-01-2024 End: 06-01-2024 Refill Lisette Frazier MD Work Phone: Rheumatology Comment on above: Refill Request Start: 05-08-2024 End: 05-08-2024 Telephone encounter Lisette Frazier MD Work Phone: Rheumatology Comment on above: Outside Lab Results Start: 04-24-2024 End: 04-24-2024 Refill Lisette Frazier MD Work Phone: Rheumatology Comment on above: Refill Request Start: 04-02-2024 End: 04-02-2024 ambulatory [facility] Work Phone: Start: 04-02-2024 End: 04-02-2024 Patient encounter procedure [facility] Camila Work Phone: Start: 02-20-2024 End: 02-20-2024 Refill Lisette Frazier MD Work Phone: Rheumatology Comment on above: Refill Request Start: 12-29-2023 End: 12-29-2023 ambulatory SOHAM LEONARD Facility:[facility] Start: 12-29-2023 End: 12-29-2023 Patient encounter procedure Soham Leonard DO Work Phone: General Surgery Comment on above: Left groin pain (Nicole stanislav Dx); Postop check Start: 12-22-2023 End: 12-22-2023 ambulatory LISA MENDOZA Facility:[facility] Start: 12-22-2023 End: 12-22-2023 Patient encounter procedure Lisa TOLEDO-Sebas Work Phone: General Surgery Comment on above: Post-operative state (Primary Dx) Start: 12-21-2023 End: 12-21-2023 ambulatory Lisette Frazier MD Work Phone: Rheumatology Comment on above: 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, unspecified laterality (Primary Dx); Allopurinol adverse reaction, initial encounter Start: 12-21-2023 End: 12-21-2023 Telemedicine consultation with patient Lisette Frazier MD Work Phone: Rheumatology Start: 12-07-2023 End: 12-07-2023 Telephone encounter Aretha Cornell RN Work Phone: General Surgery Start: 12-05-2023 End: 12-05-2023 ambulatory PARKBHARATHI LEONARD Facility:[facility] Start: 11-25-2023 End: 11-25-2023 Admission to establishment Pacc Hopkins 1 Work Phone: Pre Anesthesia Start: 11-25-2023 End: 11-25-2023 ambulatory [facility] Facility:[facility] Start: 11-25-2023 End: 11-25-2023 Anesthesia consultation Pacc Hopkins 1 Work Phone: Pre Anesthesia Comment on above: Sleep apnea, unspeci fied type (Primary Dx); Pre-op evaluation Start: 11-25-2023 End: 11-25-2023 Preprocedural examination done Pacc Hopkins 1 Work Phone: [facility] Work Phone: Start: 11-24-2023 End: 11-29-2023 Refill Lisette Frazier MD Work Phone: Rheumatology Comment on above: Refill Request Start: 11-23-2023 End: 11-23-2023 Telephone encounter Soham Leonard DO Work Phone: [facility] Comment on above: Schedule Surgery Start: 11-23-2023 End: 11-23-2023 ambulatory KIRBY BEST Facility:[facility] Start: 11-23-2023 End: 11-23-2023 Patient encounter procedure Soham Leonard DO Work Phone: General Surgery Comment on above: Left inguinal hernia (Primary Dx) Start: 11-22-2023 End: 11-22-2023 Refill Lisette Frazier MD Work Phone: Rheumatology Start: 10-24-2023 Telephone encounter Lisette velarde MD Work Phone: Rhe[facility]ology [facility] Comment on above: Results; Patient Upd ate; Orders Start: 10-21-2023 End: 10-21-2023 ambulatory KIRBY Mccarthy ESTEPHANIA Facility:[facility] Start: 10-21-2023 End: 10-21-2023 Office outpatient new 60 minutes Lisette Frazier MD Work Phone: Rheumatology Comment on above: Acute idiopathic gou t of multiple sites (Primary Dx) Start: 08-25-2023 End: 08-25-2023 ambulatory VALDEMAR DUMONT Not Available Start: 05-05-2023 End: 05-05-2023 ambulatory Alon Head Other [employer] Other Start: 05-05-2023 Telephone encounter Alon Head [facility] [place] Start: 02-01-2023 End: 02-01-2023 ambulatory Alon Head Other [employer] Other Start: 02-01-2023 Telephone encounter Alon Head [facility] [place] Start: 12-22-2022 End: 12-22-2022 ambulatory Alon Head Other [employer] Other Start: 12-22-2022 Telephone encounter Alon Head [facility] [place] Start: 12-08-2022 End: 12-08-2022 ambulatory Alon Head Other [employer] Other Start: 12-08-2022 Telephone encounter Alon Head [facility] [place] Start: 11-24-2022 End: 11-24-2022 ambulatory Alon Head Other [employer] Other Start: 11-24-2022 Telephone encounter Alon Head [facility] [place] Start: 11-17-2022 End: 11-17-2022 ambulatory Alon Head Other [employer] Other Start: 11-17-2022 Office outpatient vi sit 15 minutes Alon Head [facility] [place] Start: 11-17-2022 Telephone encounter Alon Head [facility] [place] Start: 11-04-2022 End: 11-04-2022 ambulatory Alon Head Other [employer] Other Start: 11-04-2022 Telephone encounter Alon Head [facility] [place] Start: 08-30-2022 End: 08-30-2022 ambulatory Alon Head Other [employer] Other Start: 08-30-2022 Nursing evaluation o f patient and report Alon Head [facility] [place] Start: 08-30-2022 Telephone encounter Alon Head [facility] [place] Start: 04-02-2022 End: 04-02-2022 ambulatory Alon Head Other [employer] Other Start: 04-02-2022 Telephone encounter Alon Head [facility] [place] Start: 04-01-2022 End: 04-01-2022 ambulatory Alon Head Facility:[facility] Start: 04-01-2022 End: 04-01-2022 ambulatory DO Alon Head Work Phone: [facility] Work Phone: Start: 04-01-2022 End: 04-01-2022 Patient encounter procedure DO Alon Head Work Phone: [facility] [place] Work Phone: Start: 03-17-2022 End: 03-17-2022 ambulatory Alon Head Other [employer] Other Start: 03-17-2022 Telephone encounter Alon Head [facility] [place] Start: 01-22-2022 End: 01-22-2022 ambulatory Alon Head Other [employer] Other Start: 01-22-2022 Telephone encounter Alon Head [facility] Start: 01-13-2022 End: 01-13-2022 ambulatory Alon Head Other [employer] Other Start: 01-13-2022 Telephone encounter Alon Head [facility] Start: 08-18-2021 Office outpatient vi sit 25 minutes Alon Bellamy [facility] Start: 08-18-2021 End: 08-18-2021 ambulatory Alon Head [facility] [employer] Other Start: 08-18-2021 End: 08-18-2021 Patient encounter procedure DO Alon Head Work Phone: [facility] Start: 04-07-2021 End: 04-07-2021 ambulatory Alon Head Other [employer] Other Start: 04-07-2021 Telephone encounter Alon Head [facility] Start: 04-06-2021 End: 04-07-[address] ALON HEAD Facility:[facility] Start: 03-23-2021 End: 03-23-2021 ambulatory Alon Head Other [employer] Other Start: 03-23-2021 Telephone encounter Alon Head [facility] Start: 12-23-2020 End: 12-24-[address] ALON HEAD Facility:[facility] Start: 12-04-2020 End: 12-04-[address] ALON HEAD Facility:[facility] Start: 07-23-2020 End: 07-24-2020 ambulatory NONE LISTED REQUEST Facility:[facility] Start: 07-02-2020 End: 07-03-2020 ambulatory NONE LISTED REQUEST Facility:[facility] Start: 04-17-2020 End: 04-17-2020 Subsequent hospital visit by physician Peter Flowers [facility] Rej Work Phone: Radiology Comment on above: Pain [R52] Procedures Date Procedure Procedure Detail Performing Clinician Start: 04-01-2022 CT of soft tissues o f neck with contrast DO Alon Head Work Phone: Start: 04-17-2020 Radex shoulder compl ete minimum 2 views Rodrigue Bell MD Work Phone: Plan of Treatment Date Care Activity Detail Author Start: 11-22-2026 Diabetes Screening Diabetes Screenin g [facility] Start: 10-20-2026 Diabetes Screening Diabetes Screenin g [facility] Start: 11-26-2024 Influenza vaccination [facility] Start: 2024 Pneumococcal Vaccine : 50+ (1 of 1 - PCV) Pneumococcal Vaccine: 50+ (1 of 1 - PCV) [facility] Start: 2024 Shingrix Vaccine (1 of 2) Shingrix Vaccine (1 of 2) [facility] Start: 03-16-2024 End: 03-16-2024 Patient encounter procedure 03/16/2024 1:00 PM EST Office Visit Rheumatology [address] [address] Lisette Frazier MD [address] [place] [address] gout fu per [place] Rheumatology Comment on above: gout fu per [place] Start: 01-16-2024 End: 01-16-2024 Patient encounter procedure 01/16/2024 9:00 AM EDT Office Visit Rheumatology [address] [address] Lisette Frazier MD [address] [place] [address] gout fu per [place] Rheumatology Comment on above: gout fu per [place] Start: 12-22-2023 End: 12-22-2023 Patient encounter procedure 12/22/2023 8:00 AM EDT Office Visit General Surgery [address] [place] [address] [place] [id number] Lisa Mendoza PA-C [address] [place] [id number] 2 wk s/p Lap left inguinal hernia repair w mesh poss open Leonard pt req am General Surgery Comment on above: 2 wk s/p Lap left in guinal hernia repair w mesh poss open Leonard pt req am Start: 12-05-2023 End: 12-05-2023 Admission to same day surgery center 12/05/2023 12:35 PM EDT - 12/05/2023 2:10 PM EDT Surgery Ambulatory Surgery [address] [place] [address] Soham Leonard DO [address] [place] [address] LAPAROSCOPIC HERNIORRHAPHY, INGUINAL INITIAL Ambulatory Surgery Comment on above: LAPAROSCOPIC HERNIOR RHAPHY, INGUINAL INITIAL Start: 12-05-2023 End: 12-05-2023 Laparoscopy surg rpr initial inguinal hernia LAPAROSCOPIC HERNIORRHAPHY, INGUINAL INITIAL Left inguinal hernia 12/05/2023 12:35 PM EDT [facility] Start: 12-05-2023 Subsequent hospital visit by physician 12/05/2023 12:35 PM EDT Hospital Encounter Ambulatory Surgery [address] [place] [address] Soham Leonard DO [address] [facility] [place] [address] Left inguinal hernia [K40.90] Ambulatory Surgery Comment on above: Left inguinal hernia [K40.90] Start: 12-05-2023 End: 12-05-2023 Admission to same day surgery center 12/05/2023 7:30 AM EDT - 12/05/2023 9:00 AM EDT Surgery Ambulatory Surgery [address] [place] [address] Soham Leonard DO [address] [facility] [place] [address] LAPAROSCOPIC HERNIORRHAPHY, INGUINAL INITIAL Ambulatory Surgery Comment on above: LAPAROSCOPIC HERNIOR RHAPHY, INGUINAL INITIAL Start: 12-05-2023 End: 12-05-2023 Laparoscopy surg rpr initial inguinal hernia LAPAROSCOPIC HERNIORRHAPHY, INGUINAL INITIAL Left inguinal hernia 12/05/2023 7:30 AM EDT [facility] Start: 12-05-2023 Subsequent hospital visit by physician 12/05/2023 7:30 AM EDT Hospital Encounter Ambulatory Surgery [address] [place] [address] Soham Leonard DO [address] [place] [address] Left inguinal hernia [K40.90] Ambulatory Surgery Comment on above: Left inguinal hernia [K40.90] Start: 11-27-2023 Covid-19 Vaccine () Covid-19 Vaccine () [facility] Start: 11-27-2023 Covid-19 Vaccine () Covid-19 Vaccine () [facility] Start: 11-27-2023 Influenza vaccination Influenza Vacc ine (#1) [facility] Start: 11-24-2023 End: 02-23-2024 CBC W Auto Differential panel - Blood COMPLETE BLOOD COUNT AND DIFFERENTIAL Lab Routine Chronic gout of multiple sites, unspecified cause Expected: 11/24/2023, Expires: 02/23/2024 [facility] Work Phone: Comment on above: Expected: 11/24/2023 , Expires: 02/23/2024 Start: 11-24-2023 End: 02-23-2024 Comprehensive metabolic 2000 panel - Serum or Plasma COMPREHENSIVE METABOLIC PANEL Lab Routine Chronic gout of multiple sites, unspecified cause Expected: 11/24/2023, Expires: 02/23/2024 [facility] Comment on above: Expected: 11/24/2023 , Expires: 02/23/2024 Start: 11-24-2023 End: 02-23-2024 Urate [Mass/volume] in Serum or Plasma URIC ACID Lab Routine Chronic gout of multiple sites, unspecified cause Expected: 11/24/2023, Expires: 02/23/2024 [facility] Comment on above: Expected: 11/24/2023 , Expires: 02/23/2024 Start: 11-26-2022 Covid-19 Vaccine (3 - 2023-24 season) Covid-19 Vaccine ( season) [facility] Start: 11-26-2022 Influenza vaccination Influenza Vacc ine (#1) [facility] Start: 03-28-2022 Depression Assessment Depression Ass essment [facility] Start: 05-30-2019 Cologuard (FIT-DNA) Cologuard (FIT-D NA) [facility] Start: 05-30-2019 Colonoscopy Colonoscopy [facility] Start: 05-30-2019 Colorectal Cancer Screening Colorectal Cancer Screening [facility] Start: 05-30-[address] Colonography [facility] Start: 05-30-2019 Diabetes Screening Diabetes Screenin g [facility] Start: 05-30-2019 Fecal Occult Blood Fecal Occult Bloo d [facility] Start: 05-30-2019 Screening for malign ant neoplasm of colon [facility] Start: 05-30-2019 Sigmoidoscopy Sigmoidoscopy [facility] Start: 2009 Lipid 1996 panel - Serum or Plasma Lipid Screening [facility] Start: 2009 Lipid panel Lipid Screening [facility] Start: 1993 Hepatitis B Vaccine (1 of 3 - 19+ 3-dose series) Hepatitis B Vaccine (1 of 3 - 19+ 3-dose series) [facility] Start: 1993 Urine microalbumin profile DTaP,Tdap,Td Vaccine (1 - Tdap) [facility] Start: 1992 Anxiety Screening Anxiety Screening [facility] Start: 1992 Depression Screening Depression Scre ening [facility] Start: 1992 Hepatitis C Screening Hepatitis C [facility] Start: 1992 Hepatitis C screening Hepatitis C [facility] Start: 1992 HIV Screening HIV Screening [facility] Start: 1992 HIV screening HIV Screening [facility] Start: 1974 Covid-19 Vaccine (#1) Covid-19 Vacci ne (#1) [facility] Start: 1974 Hepatitis B Vaccine (1 of 3 - 3-dose series) Hepatitis B Vaccine (1 of 3 - 3-dose series) [facility] Adenosine monophosphate.cyclic [Moles/volume] in Serum or Plasma [facility] Comprehensive metabo lic 2000 panel - Serum or Plasma [facility] CT Abdomen and Pelvi s W contrast IV [facility] End: 01-27-2025 CT Pelvis WO contrast CT PELVIS WO IVCON Radiology Routine Left groin pain 1 Occurrences starting 12/29/2023 until 01/27/2025 [facility] Work Phone: Comment on above: 1 Occurrences starti ng 12/29/2023 until 01/27/2025 Rheumatoid factor [Units/volume] in Serum or Plasma [facility] Immunizations Immunization Date Immunization Notes Care Provider Fa guerrero 07-23-2020 COVID-19 Vaccine Pfizer - Documentation Purposes Only Alon Head Other [employer] Other 07-02-2020 COVID-19 Vaccine Pfizer - Documentation Purposes Only Alon Head Other [employer] Other NEGATED: Highlighted row has not occurred!04-06-2021 influenza, seasonal, injectable Patient Objection Alon Head Other [facility] Payers Date Payer Category Payer Private Health Insurance M[employer] PPO [id number] 2019 Unknown MMO MMO [employer] PPO [id number] 2019-Present [phone] [address] [place] [id number] PPO [id number] 1974 Unknown [id number] 1974 Unknown [id number] 1974 Unknown [id number] 1974 Unknown [id number] 1959 Self-pay 1959 Self-pay [id number] 1959 Unknown [id number] Private Health Insurance [employer] [id number] Unknown [id number] Unknown [id number] Unknown [id number] Unknown [id number] Social History Date Type Detail Facility Start: 12-04-2020 End: 10-21-2023 Tobacco smoking status SCIS Never smoked tobacco (finding) [facility] Start: 1975 Sex Assigned At Male F [facility] Start: 04-17-2020 End: 11-25-2023 Sex Assigned At [facility] Start: 04-17-2020 End: 11-25-2023 History of Social function [facility] Start: 02-27-2012 National Score (1-10 0), lower number is lower risk Not on file [facility] Start: 1975 Sex Assigned At Not on file [facility] Start: 04-17-2020 Sexual orientation Heterosexual (anatoliy omer) [facility] Start: 03-18-2020 End: 04-17-2020 Exposure to SARS-CoV-2 (event) Not sure [facility] Start: 10-21-2023 Tobacco use and exposure Smokeless tobacco non-user [facility] Start: 04-02-2024 End: 04-02-2024 Sex Male (finding) [facility] Medical Equipment Procedure Code Equipment Code Equipment Origin al Text Equipment Identifier Dates Med Dextile Lt 1 3cm X 9cm (5.1' X 3.5'') - [id number] Start: 12-05-2023 Clinical Notes 04-17-2020 to 05-08-2024 Telephone Encounter - Parish Arredondo Ma - 05/08/2024 4:14 PM ESTTelephone Encounter - Parish Arredondo Ma - 05/08/2024 4:14 PM Soham Palma DO - 12/29/2023 2:51 PM EDT Note Date & Type Note Facility 05-08-2024 Telephone encounter Note Received lab results from [facility] collected on 05/08/24 See scanned docs Scan on 05/08/2024 4:08 PM by ProviderKathrine PA-C: Miscellaneous Lab [facility] 05-08-2024 Miscellaneous Notes Received lab results from [facility] collected on 05/08/24 See scanned docs Scan on 05/08/2024 4:08 PM by ProviderKathrine PA-C: Miscellaneous Lab documented in this encounter [facility] 12-29-2023 Note HNO ID: [id number] Author: SOHAM LEONARD DO Service: ? Author [...] discussed with the Patient or Patient's Authorized Accounts Receivable Administrator. As applicable, any other physician, advance practice provider, medical student, or other health professional student that will be observing or involved in the sensitive examination for educational or training purposes was discussed with the Patient or Authorized Accounts Receivable Administrator. The Patient or Authorized Accounts Receivable Administrator has agreed to proceed with the sensitive [...] December 29, 2023 TIME: 2:51 PM PAGER: [facility] 12-29-2023 History of Presen t illness [...] discussed with the Patient or Patient's Authorized Accounts Receivable Administrator. As applicable, any other physician, advance practice provider, medical student, or other health professional student that will be observing or involved in the sensitive examination for educational or training purposes was discussed with the Patient or Authorized Accounts Receivable Administrator. The Patient or Authorized Accounts Receivable Administrator has agreed to proceed with the sensitive [...] 2:51 PM PAGER: documented in this encounter [facility] 12-22-2023 Note HNO ID: [id number] Author: LISA MENDOZA PA-C Service: ? Author Type: Physician Gluten Settling Tender Type: Progress Notes Filed: 12/22/2023 08:17 Note [...] discussed with the Patient or Patient's Authorized Accounts Receivable Administrator. As applicable, any other physician, advance practice provider, medical student, or other health professional student that will be observing or involved in the sensitive examination for educational or training purposes was discussed with the Patient or Authorized Accounts Receivable Administrator. The Patient or Authorized Accounts Receivable Administrator has agreed to proceed with the sensitive examination. (Sensitive examination includes inspection and/or palpation of the breasts, pelvis, prostate and anorectal regions) Kathleen Buchanan LPN, book salesman Assessment ASSESSMENT: POD 17 s/p laparoscopic LIH repair PLAN: Discussed lifting restrictions No submerging until 4 post op RTO prn SIGNATURE: Lisa Mendoza PA-C PATIENT NAME: Rehan Monet DATE: December 22, 2023 TIME: 8:09 AM PAGER: [facility] 12-22-2023 History of Presen t illness [...] discussed with the Patient or Patient's Authorized Accounts Receivable Administrator. As applicable, any other physician, advance practice provider, medical student, or other health professional student that will be observing or involved in the sensitive examination for educational or training purposes was discussed with the Patient or Authorized Accounts Receivable Administrator. The Patient or Authorized Accounts Receivable Administrator has agreed to proceed with the sensitive examination. (Sensitive examination includes inspection and/or palpation of the breasts, pelvis, prostate and anorectal regions) Kathleen Buchanan LPN, book salesman Assessment ASSESSMENT: POD 17 s/p laparoscopic LIH repair PLAN: Discussed lifting restrictions No submerging until 4 post op RTO prn SIGNATURE: Lisa Mendoza PA-C PATIENT NAME: Rehan Monet DATE: December 22, 2023 TIME: 8:09 AM PAGER: documented in this encounter [facility] 12-21-2023 Note HNO ID: [id number] Author: LIZETH WONG MD Service: ? Author [...] visit. Either the patient or their legal visitor services representative has been informed of the [...] which included preparing to see the patient, [id number] patient care, completing clinical documentation, obtaining and/or [...] which included preparing to see the patient, woat-[id number] patient care, completing clinical documentation, obtaining and/or reviewing separately obtained history, performing a medically appropriate examination, counseling and educating the patient/family/caregiver, and ordering medications, tests, or procedures. Lizeth Wong MD Rheumatology Staff cc: PCP: Kirby Best ([facility]) [address] [place] [address] Subjective HISTORY OF PRESENT ILLNESS A 48 y/o M patient with PMHX of IVETH (non-compliant with CPAP), gout who presents for further evaluation. The patient reported that his first episode was 6 years ago in his right ankle, it got swollen and red, was unable to walk on it, and though he had broke it, he used I (more content not included)... [facility] 12-21-2023 History of Presen t illness [...] visit. Either the patient or their legal visitor services representative has been informed of the [...] which included preparing to see the patient, bpuu-[id number] patient care, completing clinical documentation, obtaining and/or [...] which included preparing to see the patient, nfqn-wm-[id number] patient care, completing clinical documentation, obtaining and/or reviewing separately obtained history, performing a medically appropriate examination, counseling and educating the patient/family/caregiver, and ordering medications, tests, or procedures. Lizeth Wong MD Rheumatology Staff cc: PCP: Kirby Best ([facility]) [address] [place] [address] Subjective HISTORY OF PRESENT ILLNESS A 48 [...] Left TESTICLE SURGERY HX Left TOOTH EXTRACTION Kamas Teeth Family History FAMILY HISTORY Problem Relation [...] mood and affect. documented in this encounter [facility] 12-07-2023 Telephone encounter Note Called patient and received VM as identified by no general dentist/owner. Informed if any questions or concerns to please call the office or may MyChart. If no questions or concerns then we will see at scheduled post-op appt. Informed if any questions or concerns arise before then to please call. Office number left to contact. [facility] Work Phone: 12-07-2023 Miscellaneous Notes Called patient and received VM as identified by no general dentist/owner. Informed if any questions or concerns to please call the office or may MyChart. If no questions or concerns then we will see at scheduled post-op appt. Informed if any questions or concerns arise before then to please call. Office number left to contact. documented in this encounter [facility] 12-05-2023 Note HNO ID: [id number] Author: CARMEN BALLARD APRN.CASE ASSEMBLER Service: ? Author Type: Nurse Stockroom Associate Type: Anesthesia Procedure Notes Filed: 12/05/2023 09:20 Note Text: ANESTHESIOLOGY PROCEDURE NOTE Airway General Information Procedure Start Time/Medication Administration: 12/05/2023 7:40 AM Procedure End Time: 12/05/2023 7:40 AM Patient location during procedure: OR Patient identity confirmed: arm band and patient Staffing Anesthesiologist: Joe Hyman MD CASE ASSEMBLER: Carmen Ballard APRN.CASE ASSEMBLER Performed by: CASE ASSEMBLER Indications and Patient Condition Indications for airway [...] 1 Airway not difficult SIGNATURE: Carmen Ballard APRN.CASE ASSEMBLER PATIENT NAME: Rehan Monet DATE: December 05, 2023 TIME: 7:50 AM CSN: [id number] [facility] 11-25-2023 Instructions Ximena Gonzales APRN.EGG PROCESSOR - 11/25/2023 7:53 AM EDT PATIENT PREOPERATIVE INSTRUCTIONS Your Surgeon has scheduled you for your procedure at this surgery center: [facility]: [phone] --[address] [facility] [place] [address]. Please read below carefully for your personalized [...] Procedures: - YOU MUST HAVE A RESPONSIBLE PHOTO STUDIO ASSISTANT TAKE YOU HOME. A PROJECT MANAGEMENT MANAGER OR PETROLOGY TEACHER CANNOT BE MADE A RESPONSIBLE PHOTO STUDIO ASSISTANT. - We recommend that a responsible person [...] Advance Directive, please fax a copy to [phone] or email to for it to be [...] Ximena Gonzales APRN.CNP documented in this encounter [facility] 11-25-2023 Note HNO ID: [id number] Author: MIREYA SANCHEZ MA Service: ? Author Type: Exhibition Organiser Type: Progress Notes Filed: 11/25/2023 08:00 Note Text: [facility] 11-25-2023 History of Presen t illness Narrative documented in this encounter [facility] 11-25-2023 History and physical note HISTORY AND PHYSICAL EXAMINATION SERVICE DATE: 11/25/2023 SERVICE TIME: 7:45 AM PRIMARY CARE PHYSICIAN: Kirby Best DO REASON FOR VISIT: Rehan Monet is [...] physical activity. STOP-Bang Score: STOP-Bang Score: 0 [id number] Score: Age: <65 Sex: male CHF history: No Hypertension history: No Stroke/TIA/thromboembolism history: No Vascular disease history: No Diabetes history: No [id number] Score: 0 ANESTHESIA FINDINGS: Intubation History: No [...] HX; Left No date: TOOTH EXTRACTION Comment: Kamas Teeth FAMILY HISTORY Problem Relation Age of [...] COVID-19 original vaccine, age 12+ yr, monovalent ([employer] [facility]) 07/02/2020 Imm Admin: COVID-19 original vaccine, age 12+ yr, monovalent ([employer]) REVIEW OF SYSTEMS: PAIN ASSESSMENT: General: No weight loss, malaise or fevers. Neuro: No history of TIA's, stroke, [employer] tumor, impaired sensorium, hemiplegia, paraplegia or quadraplegia. No neurological symptoms or problems. Respiratory: No history of current cough or dyspnea, or pneumonia in the past 6 weeks. No history of respiratory/pulmonary symptoms or problems. +IVETH Cardiovascular: Negative for Recent DC, Angina, Chest Pain, PVD, DVT/PE GI: Negative [...] Rehan Monet DATE: 11/25/2023 TIME: 7:45 AM [facility] 11-25-2023 History and physical note HISTORY AND PHYSICAL EXAMINATION SERVICE DATE: 11/25/2023 SERVICE TIME: 7:45 AM PRIMARY CARE PHYSICIAN: Kirby Best DO REASON FOR VISIT: Rehan Monet is [...] physical activity. STOP-Bang Score: STOP-Bang Score: 0 [id number] Score: Age: <65 Sex: male CHF history: No Hypertension history: No Stroke/TIA/thromboembolism history: No Vascular disease history: No Diabetes history: No [id number] Score: 0 ANESTHESIA FINDINGS: Intubation History: No [...] HX; Left No date: TOOTH EXTRACTION Comment: Kamas Teeth FAMILY HISTORY Problem Relation Age of [...] Covid Immunization Dates Overdue - Covid-19 Vaccine () Overdue since 11/26/2022 07/23/2020 Imm Admin: COVID-19 original vaccine, age 12+ yr, monovalent ([employer]) 07/02/2020 Imm Admin: COVID-19 original vaccine, age 12+ yr, monovalent ([employer]) REVIEW OF SYSTEMS: PAIN ASSESSMENT: General: No weight loss, malaise or fevers. Neuro: No history of TIA's, stroke, [employer] tumor, impaired sensorium, hemiplegia, paraplegia or quadraplegia. No neurological symptoms or problems. Respiratory: No history of current cough or dyspnea, or pneumonia in the past 6 weeks. No history of respiratory/pulmonary symptoms or problems. +IVETH Cardiovascular: Negative for Recent DC, Angina, Chest Pain, PVD, DVT/PE GI: Negative [...] TIME: 7:45 AM documented in this encounter [facility] 11-23-2023 Telephone encounter Note Tried calling patient, daniel to return my call at [phone] option 5. Thank you. [facility] Work Phone: 11-23-2023 Miscellaneous Notes Tried calling patientdaniel to return my call at [phone] option 5. Thank you. Images from the original note were not included. documented in this encounter [facility] 11-23-2023 Telephone encounter Note Images from the original note were not included. [facility] 11-23-2023 History and physical note SERVICE DATE: [...] HX; Left No date: TOOTH EXTRACTION Comment: Kamas Teeth MEDICATIONS: Current Outpatient Medications: colchicine 0.6 [...] today's visit: No new labs SIGNATURE: Aretha Cornell RN PATIENT NAME: Rehan Monet DATE: November 23, 2023 TIME: 10:32 AM Park Leonard DO [facility] 11-23-2023 History and physical note SERVICE DATE: [...] HX; Left No date: TOOTH EXTRACTION Comment: Kamas Teeth MEDICATIONS: Current Outpatient Medications: colchicine 0.6 [...] today's visit: No new labs SIGNATURE: Aretha Cornell RN PATIENT NAME: Rehan Monet DATE: November 23, 2023 TIME: 10:32 AM Park Leonard DO documented in this encounter [facility] 10-24-2023 Telephone encounter Note The patient was [...] CMP and uric acid in 1 month [facility] 10-24-2023 Miscellaneous Notes The patient was called [...] in 1 month documented in this encounter [facility] 10-21-2023 Instructions Lisette Frazier MD - 10/21/2023 [...] and drink plenty of fluids. RHEUMATOLOGY APPOINTMENTS [phone] documented in this encounter [facility] 10-21-2023 History of Presen t illness Narrative Images from the original note were not included. Rheumatology CONSULTATION Date of Service: 10/21/2023 Patient: Rehan Monet Medical Record: [id number] Primary Care Physician: Kirby Best DO Last Rheumatology visit: 10/21/2023 (with Lisette [...] Left TESTICLE SURGERY HX Left TOOTH EXTRACTION Kamas Teeth Family History FAMILY HISTORY Problem Relation Age of Onset Diabetes Father Gout Brother Social History Social History Tobacco Use Smoking status: Never Smokeless tobacco: Never Current Medications No current outpatient medications on file. Labs No recent labs Imaging Last XR Chest - Impression Only No resulted procedures found. Health Maintenance Current Immunizations Reviewed on 10/21/2023 Name Date COVID-19 vaccine, monovalent ([employer]) 07/23/2020 , 07/02/2020 Physical Exam GENERAL APPEARANCE: [...] Full ROM in flexion and extension. Full child care specialist strength. No swelling or synovitis along the [...] is [facility] Go to the [facility]umat[facility] activity and [facility]. Joint Exam 10/21/2023 No joint [...] which included preparing to see the patient, [id number] patient care, completing clinical documentation, obtaining and/or [...] weeks Follow up in 3 months Latonia Price MD Rheumatology Staff documented in this encounter [facility] 10-21-2023 Note HNO ID: [id number] Author: LATONIA PRICE MD Service: ? Author Type: Fellow Type: Progress Notes Filed: 10/24/2023 09:16 Note Text: Rheumatology CONSULTATION Date of Service: 10/21/2023 Patient: Rehan Monet Medical Record: [id number] Primary Care Physician: Kirby Best DO Last Rheumatology visit: 10/21/2023 (with Lisette [...] Left TESTICLE SURGERY HX Left TOOTH EXTRACTION Kamas Teeth Family History FAMILY HISTORY Problem Relation Age of Onset Diabetes Father Gout Brother Social History Social History Tobacco Use Smoking status: Never Smokeless tobacco: Never Current Medications No current outpatient medications on file. Labs No recent labs Imaging Last XR Chest - Impression Only (more content not included)... [facility] 12-22-2022 Evaluation note Encounter Date Diagnosis [...] Nov, Other 8:27 AM - 8:34 AM [facility] Other 09-13-2023 Evaluation note* Encounter Date Diagnosis Assessment Notes Treatment Notes Treatment Clinical Notes Nov, Foot pain (ICD-10 - M79.673) [facility] Other 08-23-2023 Evaluation note* Encounter Date Diagnosis Assessment Notes Treatment Notes Treatment Clinical Notes Oct, Hyperlipidemia (ICD-10 - E78.5) [facility] Other 08-23-2023 Evaluation note* Encounter Date Diagnosis [...] He had a stress test done in 2019 which was normal. He had a rightward [...] breathtaking, he has had these intermittently since 2019. He has less stress in his new [...] recommend that he have this done at [facility] and he agrees. If needed we would refer him back to [facility] for evaluation. He only has one cup [...] we will call him with the results. [facility] Other 08-10-2023 Evaluation note* Encounter Date Diagnosis Assessment Notes Treatment Notes Treatment Clinical Notes Oct, Palpitations (ICD-10 - R00.2) [facility] Other 06-05-2023 Evaluation note* Encounter Date Diagnosis Assessment Notes Treatment Notes Treatment Clinical Notes Aug, Allergic rhinitis (ICD-10 - J30.9) [facility] Other 10-28-2022 Evaluation note* Encounter Date Diagnosis Assessment Notes Treatment Notes Treatment Clinical Notes Dec, Foot pain, left (ICD-10 - M79.672) [facility] Other 05-24-2022 Evaluation note* Encounter Date Diagnosis [...] achieving the goal were discussed in detail [facility] Other 01-21-2021 History of Present illness Narrative* [...] 17, 2020 12:50 PM [facility]No assessment information available[facility] Work Phone: Evaluation noteNo InformationNort [employer] Other Evaluation note* Diagnosis Pain Generalized pain documented in this encounter [facility] note* Diagnosis Acute idiopathic gout of multiple sites- Primary documented in this encounter [facility] note* Diagnosis Chronic gout of multiple sites, unspecified cause- Primary documented in this encounter [facility] note* Diagnosis Chronic gout of multiple sites, unspecified cause documented in this encounter [facility] note* Diagnosis Left inguinal hernia- Primary Inguinal hernia without mention of obstruction or gangrene, unilateral or unspecified, (not specified as recurrent) documented in this encounter [facility] note* Diagnosis Sleep apnea, unspecified type- Primary Pre-op evaluation Preoperative examination, unspecified Left inguinal hernia Inguinal hernia without mention of obstruction or gangrene, unilateral or unspecified, (not specified as recurrent) * Assessment & Plan Note - Ximena Gonzales APRN.CNP - 11/25/2023 7:59 AM EDT Associated Problem(s): Sleep apnea Assessment: Does not use CPAP documented in this encounter [facility] note* Diagnosis Chronic gout of multiple sites, unspecified cause Sleep apnea, unspecified type- Primary Pre-op evaluation Preoperative examination, unspecified Left inguinal hernia Inguinal hernia without mention of obstruction or gangrene, unilateral or unspecified, (not specified as recurrent) [facility] Diagnosis Sleep apnea, unspecified type- Primary Pre-op evaluation Preoperative examination, unspecified Post-operative state- Primary Other postprocedural status documented in this encounter [facility] note* Diagnosis Sleep apnea, unspecified type- Primary Pre-op evaluation Preoperative examination, unspecified Left groin pain- Primary Abdominal pain, left lower quadrant Postop check Follow-up examination, following unspecified surgery documented in this encounter [facility] note* Diagnosis Sleep apnea, unspecified type- Primary Pre-op evaluation Preoperative examination, unspecified Chronic idiopathic gout involving toe without tophus, unspecified laterality- Primary Allopurinol adverse reaction, initial encounter documented in this encounter [facility] note* Author Alon Head [facility] Authored April 02, 2024 2: 54pm The above note written by __ _Zena Paniagua____ acting as human recorder, note dictated by Dr. Wells .I performed the above HPI, ROS, and Examination. I formulated and dictated the treatment plan and was present for entire encounter. Alon Head D.O. [facility] Work Phone: Evaluation note* Diagnosis Sleep apnea, unspecified type- Primary Pre-op evaluation Preoperative examination, unspecified Chronic gout of multiple sites, unspecified cause documented in this encounter [facility] note* Diagnosis Sleep apnea, unspecified type- Primary Pre-op evaluation Preoperative examination, unspecified Chronic gout of multiple sites, unspecified cause documented in this encounter [facility] note* Diagnosis Sleep apnea, unspecified type- Primary Pre-op evaluation Preoperative examination, unspecified Chronic gout of multiple sites, unspecified cause documented in this encounter [facility] general Narrative - Reported* Type Description Date [...] History Vasectomy - Dr Mike Hospitalization History [facility] Other History general Narrative - Reported* Type Description Date [...] History Vasectomy - Dr Mike Hospitalization History [facility] Other Summary Purpose Family History Relationship Condition [...] PELVIS W/O CONTRAST MATERIAL Soham Leonard DO [address] [place] [address] [place] [id number] Referral ID Status Reason Start Date Expiration Date Visits Requested Visits Authorized [id number] New Request Auto-Generat ed Referral 12/29/2023 01/27/2025 1 1 Additional Source Comments (unrecognized sect ion and content) No Status Records FoundNo Status Records FoundNo Status Records FoundNo Status Records Found INFORMATION SOURCE (unrecogn ized section and content) DATE CREATED AUTHOR 04/10/2021 [facility] DATE CREATED AUTHOR AUTHOR'S ORGANIZ ATION 04/10/2022 [facility] DATE CREATED AUTHOR AUTHOR'S ORGANIZ ATION 08/26/2023 [facility] DATE CREATED AUTHOR AUTHOR'S ORGANIZ ATION 05/10/[address] [facility] Care Teams (unrecognized sec tion and content) Team Status: Inactive Member Role Status Dates Alon Head DO Primary Care Provider, Attending Pro vider Active Team Status: Active Member Role Status Dates Alon Head DO Primary Care Provider Active Team Status: Inactive Member Role Status Dates Alon Head DO Primary Care Provider Active Alon Bellamy MD Attending Provider Active Air Cargo Agent Relationship Specialty Start Date End Date Kirby Best DO PCP - General Internal Medicine 05/07/10 [employer] Cargo Agent Relationship Specialty Start Date End Date Kirby Best DO PCP - General Internal Medicine 05/07/10 [employer] Cargo Agent Relationship Specialty Start Date End Date Kirby Best DO PCP - General Internal Medicine 05/07/10 Air Cargo Agent Relationship Specialty Start Date End Date Kirby Best DO PCP - General Internal Medicine 05/07/10 Air Cargo Agent Relationship Specialty Start Date End Date Kirby Best DO PCP - General Internal Medicine 05/07/10 Air Cargo Agent Relationship Specialty Start Date End Date Kirby Best DO PCP - General Internal Medicine 05/07/10 Air Cargo Agent Relationship Specialty Start Date End Date Kirby Best DO PCP - General Internal Medicine 05/07/10 Air Cargo Agent Relationship Specialty Start Date End Date Kirby Best DO PCP - General Internal Medicine 05/07/10 Air Cargo Agent Relationship Specialty Start Date End Date Kirby Best PCP - General Internal Medicine 05/07/10 Air Cargo Agent Relationship Specialty Start Date End Date Kirby Best PCP - General Internal Medicine 05/07/10 Air Cargo Agent Relationship Specialty Start Date End Date Kirby Best PCP - General Internal Medicine 05/07/10 Team Status: Inactive Member Role Status Dates Alon Head DO Primary Care Provide r, Attending Provider Active Start: April 02, 2024 End: April 02, 2024 Air Cargo Agent Relationship Specialty Start Date End Date Kirby Best PCP - General Internal Medicine 05/07/10 Goals [...] Reason Onset Date Comments Refill Request 04/23/2024 Reason Comments Outside Lab Results Reason Onset Date Comments Refill Request 06/01/2024 Reason Onset Date Comments Refill Request 06/08/2024 Reason Onset Date Comments Refill Request 08/07/2024 Reason Onset Date Comments Refill Request 09/25/2024 Reason Onset Date Comments Refill Request 12/03/2024 Source Comments (unrecognize d section and content) In the event this informatio n is protected by the Federal Confidentiality of Alcohol and Drug Abuse Patient Records regulations: The Federal rules restrict any use of the information to criminally investigate or prosecute any alcohol or drug abuse patient.[facility] the event this information is protected by the Federal Confidentiality of Alcohol and Drug Abuse Patient Records regulations: The Federal rules restrict any use of the information to criminally investigate or prosecute any alcohol or drug abuse patient.[facility]In the event this information is protected by the Federal Confidentiality of Alcohol and Drug Abuse Patient Records regulations: The Federal rules restrict any use of the information to criminally investigate or prosecute any alcohol or drug abuse patient.[facility] the event this information is protected by the Federal Confidentiality of Alcohol and Drug Abuse Patient Records regulations: The Federal rules restrict any use of the information to criminally investigate or prosecute any alcohol or drug abuse patient.[facility] the event this information is protected by the Federal Confidentiality of Alcohol and Drug Abuse Patient Records regulations: The Federal rules restrict any use of the information to criminally investigate or prosecute any alcohol or drug abuse patient.[facility] the event this information is protected by the Federal Confidentiality of Alcohol and Drug Abuse Patient Records regulations: The Federal rules restrict any use of the information to criminally investigate or prosecute any alcohol or drug abuse patient.[facility] the event this information is protected by the Federal Confidentiality of Alcohol and Drug Abuse Patient Records regulations: The Federal rules restrict any use of the information to criminally investigate or prosecute any alcohol or drug abuse patient.[facility] the event this information is protected by the Federal Confidentiality of Alcohol and Drug Abuse Patient Records regulations: The Federal rules restrict any use of the information to criminally investigate or prosecute any alcohol or drug abuse patient.[facility] the event this information is protected by the Federal Confidentiality of Alcohol and Drug Abuse Patient Records regulations: The Federal rules restrict any use of the information to criminally investigate or prosecute any alcohol or drug abuse patient.[facility] the event this information is protected by the Federal Confidentiality of Alcohol and Drug Abuse Patient Records regulations: The Federal rules restrict any use of the information to criminally investigate or prosecute any alcohol or drug abuse patient.[facility]In the event this information is protected by the Federal Confidentiality of Alcohol and Drug Abuse Patient Records regulations: The Federal rules restrict any use of the information to criminally investigate or prosecute any alcohol or drug abuse patient.[facility] the event this information is protected by the Federal Confidentiality of Alcohol and Drug Abuse Patient Records regulations: The Federal rules restrict any use of the information to criminally investigate or prosecute any alcohol or drug abuse patient.[facility] the event this information is protected by the Federal Confidentiality of Alcohol and Drug Abuse Patient Records regulations: The Federal rules restrict any use of the information to criminally investigate or prosecute any alcohol or drug abuse patient.[facility] the event this information is protected by the Federal Confidentiality of Alcohol and Drug Abuse Patient Records regulations: The Federal rules restrict any use of the information to criminally investigate or prosecute any alcohol or drug abuse patient.[facility] the event this information is protected by the Federal Confidentiality of Alcohol and Drug Abuse Patient Records regulations: The Federal rules restrict any use of the information to criminally investigate or prosecute any alcohol or drug abuse patient.[facility] the event this information is protected by the Federal Confidentiality of Alcohol and Drug Abuse Patient Records regulations: The Federal rules restrict any use of the information to criminally investigate or prosecute any alcohol or drug abuse patient.[facility] the event this information is protected by the Federal Confidentiality of Alcohol and Drug Abuse Patient Records regulations: The Federal rules restrict any use of the information to criminally investigate or prosecute any alcohol or drug abuse patient.[facility]In the event this information is protected by the Federal Confidentiality of Alcohol and Drug Abuse Patient Records regulations: The Federal rules restrict any use of the information to criminally investigate or prosecute any alcohol or drug abuse patient.[facility] HospitalIn the event this information is protected by the Federal Confidentiality of Alcohol and Drug Abuse Patient Records regulations: The Federal rules restrict any use of the information to criminally investigate or prosecute any alcohol or drug abuse patient.[facility] the event this information is protected by the Federal Confidentiality of Alcohol and Drug Abuse Patient Records regulations: The Federal rules restrict any use of the information to criminally investigate or prosecute any alcohol or drug abuse patient.[facility] FOR RECORDS PERTAINING TO PATIENTS WHO ARE [...] BE BASED ON THE PRIMARY CLINICAL RECORDS. [facility] provides no warranty or guarantee of the accuracy or completeness of information in this document.
== END 2024-12-12 14:50 | disposition home or self-care (01) ==
LOC: LAB 14:52
PROVIDERS: PCP Family Medicine
DX: M1A.9XX0 Chronic gout, unspecified, without tophus (tophi) (principal)
CPT/HCPCS: 36415; 80053; 84550; 85025